=== PATIENT | male | born 1975 | race Caucasian/White ===

== ENCOUNTER 2025-03-24 14:25 | Outpatient (CLI) | payer OTHER, SELFPAY | END 2025-03-24 14:26 | disposition home or self-care (01) | PROVIDERS: PCP Internal Medicine; Visit Provider Orthopaedic Surgery | DX: M75.121 Complete rotator cuff tear or rupture of right shoulder, not specified as traumatic (principal); Z01.818 Encounter for other preprocedural examination | CPT/HCPCS: 87081 ==

== ENCOUNTER 2025-04-10 01:16 | Day surgery (SDC) | payer OTHER, SELFPAY ==
--- OUTSIDE RECORDS SUMMARY | 2019-03-14 10:15 | XMS_ITS | Continuity of Care Document ---
Author Organization [facility] Address [address] [place] [address] [address] [place] [address] Phone Care Team Providers Care Student Services Representative Name Role Phone Skye CASTRO/Halina Carranza CHT Unavailable Sandra vailable Procedures Procedure Date Orthotic Mgmt and Training Tip Protector Finger Advance Directives Directive Yes / No Effective Date File Name No Information Encounters Encounter Description Practice Location Reason(s) For Visit Diagnoses Date Provider Providers Copied on Encounter [facility], [address] [place] [address] [address], [place], [place], [id number], tel:[phone] [place] No Information Skye Meade. [address] [facility], [address], [place], [address], [place]. tel:[phone] Referring Provider: Mitch Rosa [address] , [place], [address]. tel:[phone] Family History Family Member Type Diagnosis Age At Onset No Information Payers Payer name Insurance type Covered green party ID Authoriza tion(s) Medicare [place] MB [id number] Medicaid OON Write Off CI 00 Social History Type Description Quantity Date Captured Comments Sex Male Smoking Status No Information Chief Complaint And Reason For Visit No Information Reason For Referral Reason For Referral No Information History Of Present Illness Encounter Date Complaint History Of Prese nt Illness No Information Functional Status Date Functional Assessmen t No Information Instructions Date Instruction Additional Infor mation No Information Assessments Type Assessment Date No Information Patient Care Teams Name Effective Dates (start - stop) Status Members No Information
--- NOTE | 2025-03-24 09:46 | SUR.PREOP ---
Addendum entered by Lis Jo RN 04/08/25 09:35: 0933-Called pt due to change in schedule for his surgery now being 04/10/25 at 0730 arriving at 0600. Pt denied any changes with his medication, medical history or s/s of illness at this time. Pt is aware of the medication he can take and re-educated on NPO after midnight, may have 20oz of clear fluids 3hrs prior as previously instructed. Pt is comfortable with the plan and denied having any further concerns at this time.-raisa Original Note: [facility] has started construction of its new state of the art ER which will open Spring 2026. With this, we anticipate parking may be a challenge for some our surgical patients and families. Parking spaces are limited but are available for all Surgical, obstetrics, and ER patients sharing this lot. If you arrive and find you are having a hard time finding a parking space, please note that we understand the challenges, please drive around the hospital and park near Hospital Entrance 1. When you enter this entrance, you can ask a volunteer to direct or take you back to the surgical waiting area to check in. We appreciate everyone?s understanding of these expected challenges while we build for your future. Report to the Outpatient Waiting Room, entrance under the green pavilion located off [facility], at time _0930__ on date _04/03/25__. Planned Procedure Time: __1130___.? Time changes happen often and if your time is changed the preop area will call you the afternoon before. - You and your visitor will be asked to self-screen and do not enter if you have any COVID symptoms. Please call surgeon if you need to reschedule. - A mask is optional within the hospital at this time. Patients may have clear liquids (water, carbonated beverages, clear teas, apple juice) until 3 hours prior to surgery with a maximum of 20 ounces. - No food from midnight until time of surgery and no smoking, or chewing tobacco (or any form of nicotine). No chewing gum, candy or mints. Take only the following medications with a SIP of water on the morning of surgery: _amlodipine, buspirone, duloxetine, (sumatriptan if needed).__ DO NOT STOP ANY OF YOUR OTHER PRESCRIPTION MEDICATIONS PRIOR TO SURGERY EXCEPT THE FOLLOWING Hold all vitamins and supplements for 3 days per anesthesiologist. Medications to discontinue per physician ____n/a____ Date to take last dose__n/a____ Please no make-up, nail japanese, hairspray, perfume, deodorant, or body powder the day of surgery.? No jewelry (including any body piercings) or valuables the day of surgery, leave them at home.? Please take a shower or bath the night before, or the morning of, surgery with an antibacterial soap.? Wear comfortable, loose fitting clothing. - Jewelry must be removed prior to entering the operating room.? Rings and piercings that are not removed may be cut off. - The hospital will not accept responsibility for valuables.? - Please leave all valuables, including medications, at home the day of surgery. If you are going home after surgery, a licensed independent driver must drive you home.? - NO public transportation without another adult if you receive anesthesia. - We recommend that an adult stay with you for 24 hours following discharge. - We also recommend that you do not drive, make important decision, drink alcoholic beverages, or take any drugs that were not prescribed by your health care provider for at least 24 hours after your discharge time. Follow any additional instructions given to you from your surgeon. Telephone instructions given to ___John____and asked if any additional questions and then verbalized understanding. Patient advised to call surgeon office or pre surgery nurse liaison [phone] if any additional questions.
[2025-03-24 10:11] VITALS: BMI 33.2
--- NOTE | 2025-04-01 12:36 | PM.IMHP ---
H&P: HPI History of Present Illness Date/Time: 04/01/25 12:36 Chief Complaint: Rotator cuff tear right shoulder Narrative: 49-year-old male who presents today for arthroscopy of his right shoulder with mini open rotator cuff repair possible biceps tenodesis proceed as indicated. Patient has been having symptoms in his shoulder for approximately 17 years. He is undergone subacromial decompression arthroscopically as well as distal clavicle excision. The surgeries were back in 2008. He has had continued symptoms since then. He states he had her MRI scan in 2010 2011 which showed a rotator cuff tear. He did not do anything surgically about that. He has not been able to repeat the MRI until recently. He has a bladder stimulator that was not MRI compatible. At this point he has a new stimulator which was MRI compatible. He had MRI scan done in November of this year which showed full-thickness tear of the entire with of the supraspinatus tendon with retraction. There is also involvement of the upper portion the infraspinatus. There is no fatty infiltration of muscles. At this point patient is been dealing with symptoms for her over 12 years shoulder and feels this point is ready proceed with repair the rotator cuff tendon. Review of Systems Review of Systems: All systems reviewed & are unremarkable except as noted in HPI and below PMFSH Past Medical History Medical History (Updated 12/07/24 @ 19:30 by Romeo Simpson MD) Sacral nerve stimulator present Crohn disease Torn rotator cuff Surgical History Surgical History (Updated 12/04/24 @ 15:17 by Jodie Dutta CMA) History of gastric bypass History of shoulder surgery History of carpal tunnel release both shoulders Social History Social History (Updated 12/04/24 @ 13:55 by Jodie Dutta CMA) Smoking status: Never smoker Alcohol intake: current Drinks per week: 2 Substance use: current Substance use type: marijuana Other substance usage details: 15-20 pinch hits every day. Do You Feel Safe in your Home?: Yes Lack of Transportation: YES Lack of Food: Never True Current Housing: I Have Housing Concerned About Future Housing: No Difficulty Paying Gas/Electric Bills: No Difficulty Paying for Meds: No Currently Unemployed: YES Education: Trade/Vocational Certificate Difficulty w/ Childcare or Family Care: No Living arrangements: alone Spiritual care concerns: No Meds Home Medications and Allergies Home Medications ?Medication ?Instructions ?Recorded ?Confirmed ?Type allopurinol 100 mg tablet 100 mg PO DAILY 09/30/24 03/24/25 History amlodipine 10 mg tablet 10 mg PO DAILY 09/30/24 03/24/25 History buspirone 15 mg tablet 30 mg PO BID 09/30/24 03/24/25 History calcium carbonate (Calcium 600) 600 mg PO DAILY 09/30/24 03/24/25 History colestipol 1 gram tablet 1 g PO ONCE 09/30/24 03/24/25 History duloxetine 60 mg capsule,delayed 60 mg PO DAILY 09/30/24 03/24/25 History release testosterone cypionate 200 mg/mL 100 mg IM WEEKLY 09/30/24 03/24/25 History intramuscular oil (Depo-Testosterone) trazodone 100 mg tablet 100 mg PO QHS 09/30/24 03/24/25 History atogepant 60 mg tablet (Qulipta) 60 mg PO HS 03/24/25 03/24/25 History famotidine 40 mg tablet mg 03/24/25 History rabeprazole 20 mg tablet,delayed 20 mg PO DAILY 03/24/25 03/24/25 History release sumatriptan succinate 100 mg tablet 100 mg PO PRN 03/24/25 03/24/25 History Allergies Allergy/AdvReac Type Severity Reaction Status Date / Time nabumetone Allergy Unknown Unknown Verified 03/24/25 09:48 Sulfa (Sulfonamide Allergy Unknown Unknown Verified 03/24/25 09:48 Antibiotics) Exam Narrative: 49-year-old male alert pleasant. BMI is 33.2. His right shoulder is elevation 180 external rotation 80 internal rotation to T12. He has mild weakness with external rotation. Mild weakness with thumbs-down abduction strength testing. He does have moderate pain with strength testing in the anterior shoulder. Subscap lift-off is intact. Speed's maneuver caused him moderate anterior shoulder pain. Severe tenderness over the bicipital groove as well as the anterior supraspinatus tendon insertion. Moderate pain primary impingement testing. Neck range of motion is full without discomfort. No numbness tingling in the arm. 2+ radial pulse. Resp: Auscultation: clear to auscultation bilaterally Cardio: Rate: regular rate Rhythm: regular rhythm Assessment and Plan Assessment and plan (1) Complete rotator cuff tear or rupture of right shoulder, not specified as traumatic: Qualifiers: Rotator cuff tear trauma status: nontraumatic Qualified Code(s): M75.121 - Complete rotator cuff tear or rupture of right shoulder, not specified as traumatic Code(s): M75.121 - Complete rotator cuff tear or rupture of right shoulder, not specified as traumatic Status: Acute Plan 49-year-old male who has a full-thickness rotator cuff tear right shoulder. Also the long head of the biceps tendon appears to be perched on the lesser tuberosity. Patient has been having symptoms and pain at for over 10 years. At this point he feels he is ready proceed with surgery. Surgical procedures well as risks and complications were discussed in detail all questions were answered and we will proceed. He will stop his testosterone 4 weeks prior to surgery. He will also avoid any anti-inflammatories or aspirin products 1 week prior to surgery. He will see his primary care for pre-surgical clearance. Patient's nasal swab was negative.
--- OUTSIDE RECORDS SUMMARY | 2025-04-03 02:12 | XMS_ITS | Clinical Summary ---
Author Organization [facility] Address [address] [address] Phone Care Team Providers Care Cracker And Cookie Machine Operator Name Role Phone Quinton Valdemar Rao APRN Unavailable [phone] Doug Sanford Unavailable Rose Mckeon MD Unavailable [phone] Dilia Hansen MD Unavailable [phone] Marjorie Clark MD Unavailable Kavon Renee DPM Unavailable Unavailable Fer Chauhan MD Unavailable [phone] Blaise Peterson MD Unavailable [phone] Clayton Iyer PAC Unavailable [phone] Juliana Smith Unavailable [phone] Areli Alarcon MD Primary Care Provider Allergies Active Allergy Reactions Criticality Noted Date Comments Ibuprofen Nausea Low 09/15/2023 Nabumetone Hallucinations,Other (see Comments) Low 08/16/2018 Seeing Red dots Sulfa Antibiotics Other (see Comments) sweating Medications DULoxetine (CYMBALTA) [address] Particles Take 1 Capsule by mouth daily. 90 Capsule 07/11/19 23 Active busPIRone (BUSPAR) 10 MG Tablet TAKE 1 TABLET 3 TIMES A DAY BY ORAL ROUTE. 01/27/20 23 Active gabapentin (NEURONTIN) 300 MG CapsuleIndication s:Chronic pain syndrome Take 1 Capsule by mouth 3 times daily. 270 Capsule 06/08/19 24 Active SYRINGE-NEEDLE, DISP, 3 ML (B-D 3CC LUER-KRISTEN SYR 22GX1) 22G X 1 3 ML MiscIndications:S econdary male hypogonadism 1 Needle by Intramuscular route every 7 days. 50 Each 07/14/19 24 Active colestipol (COLESTID) 1 GM TabletIndications :Chronic diarrhea TAKE 1 TABLET BY MOUTH TWICE A DAY 180 Tablet 1 07/20/19 24 Active Additional Information Patient taking differently: 1 g Oral DAILY, Reported on 02/25/2025 mesalamine (LIALDA) 1.2 GM Tablet Delayed ResponseIndicatio ns:Crohn's disease of large intestine without complications TAKE 2 TABLETS BY MOUTH EVERY DAY 180 Tablet 2 08/09/19 24 Active fluconazole (DIFLUCAN) 150 MG Tablet TAKE 2 TABLETS BY MOUTH IMMEDIATELY, THEN ONCE A WEEK 11/16/19 24 Active famotidine (PEPCID) 40 MG Tablet Take 40 mg by mouth 2 times daily. 12/24/19 24 Active zolpidem (AMBIEN) 10 MG Tablet Take 10 mg by mouth nightly. 12/11/19 24 Active meloxicam (MOBIC) 15 MG Tablet Take 1 Tablet by mouth daily. 90 Tablet 3 01/15/20 24 Active traMADol (ULTRAM) 50 MG TabletIndications :Acute pain of right wrist Take 1 Tablet by mouth every 12 hours as needed for Severe pain. 20 Tablet 02/02/20 24 Active allopurinol (ZYLOPRIM) 100 MG Tablet TAKE 1 TABLET BY MOUTH EVERY DAY 90 Tablet 3 08/20/19 25 Active traZODone (DESYREL) 100 MG Tablet Take 100 mg by mouth nightly. Active propranolol (INDERAL LA) 120 MG CAPSULE SR 24 HRIndications:Hyp ertension, essential TAKE 2 CAPSULES BY MOUTH EVERY DAY 180 Capsule 11/26/19 25 Active amLODIPine (NORVASC) 10 MG Tablet Take 10 mg by mouth daily. Active rosuvastatin (CRESTOR) 40 MG Tablet Take 40 mg by mouth daily. Active testosterone cypionate (DEPO-TESTOSTERON E) 200 MG/ML SolutionIndicatio ns:Male hypogonadism 0.5 ML BY INTRAMUSCULAR ROUTE ONCE A WEEK. 6 mL 1 02/26/20 25 Active ARIPiprazole (ABILIFY) 2 MG Tablet take 1 tablet by mouth every day at bedtime for 30 days 02/18/20 25 Active RABEprazole (ACIPHEX) 20 MG Tablet Delayed Response Oral 01/13/20 22 Active ondansetron (ZOFRAN-ODT) 4 MG TABLET DISPERSIBLEIndica tions:Intractable chronic migraine with aura with status migrainosus Take 1 Tablet by mouth every 6 hours as needed for Nausea - 1st line. 30 Tablet 2 02/26/20 25 Active SUMAtriptan (IMITREX) 100 MG TabletIndications :Intractable chronic migraine with aura with status migrainosus Take 1 Tablet by mouth daily as needed for Migraine. Use as directed. May repeat dose in 2 hours if headache recurs. 9 Tablet 3 02/26/20 25 Active atogepant (Qulipta) 60 MG TabletIndications :Migraine Take 1 Tablet by mouth nightly. Indications: Migraine Headache 30 Tablet 2 02/26/20 25 Active Active Problems Problem Noted Date Diagnosed Date Irritable bowel syndrome 09/28/2023 ETOH abuse 09/07/2023 Seasonal allergies 09/07/2023 YELITZA on CPAP 09/07/2023 Overview (09/07/2023): NO LONGER NEEDED PER DOCTOR SINCE 2020 Arthritis 09/07/2023 Mixed hyperlipidemia 09/07/2023 Acute intractable headache 02/28/2023 Numbness of left hand 11/30/2022 Anxiety and depression 08/27/2021 RLS (restless legs syndrome) 08/27/2021 Other male erectile dysfunction 11/27/2020 Pituitary adenoma 05/31/2019 Crohn's disease 10/23/2018 Secondary male hypogonadism 10/01/2018 Fibromyalgia 06/05/2018 Neurogenic bladder 11/02/2016 Gout 03/02/2016 Gastroesophageal reflux disease without esophagi tis 09/11/2015 Insomnia 09/11/2015 Cyst of neck 06/18/2015 Chronic pain syndrome 06/18/2015 Hypertension, essential 06/18/2015 Resolved Problems Problem Noted Date Diagnosed Date Resolved Date Gastritis 09/07/2023 09/08/2023 Alcohol-induced acute pancreatitis 09/07/2023 09/08/2023 Pancreatitis 09/06/2023 09/07/2023 Chronic hepatitis C without hepatic coma 12/03/2021 08/04/2022 Chronic pain 10/02/2018 09/15/2023 History of foot surgery 10/02/2018/09/2023 Hyperglycemia 10/02/2018 06/08/2023 Chronic narcotic use 08/03/2018 022 Right Achilles tendinitis 04/27/2018 Right Achilles tendinitis 04/27/2018 Fatigue 01/03/2018 08/27/2021 Chronic joint pain 10/03/2017 Low testosterone 12/01/2015 06/07/2022 Epidermoid cyst 07/23/2015 08/27/2021 Neoplasm of skin 07/23/2015 06/08/2023 Primary gout 06/18/2015 08/27/2021 Pituitary neoplasm 10/15/2013 3 Overview (08/27/2021): Pituitary tumor Encounters Date Type Department Care Team Description 03/31/2025 Results Follow-Up [facility] [address] [place] [address] Marjorie Clark MD CMP (COMPREHENSIVE METABOLIC PANEL), PSA SCREEN, LIPID PANEL, Additional followed-up results: 2 03/24/2025 Results Follow-Up [facility] - [facility]rology [facility] [place] [address] [facility] [place] [address] Graciela Todd APRN, DIE CUT OPERATOR VITAMIN B12 03/24/2025 Travel 02/26/2025 Telephone [facility] Neurology [facility] [place] [address] [facility] [place] [address] Graciela Todd APRN, DIE CUT OPERATOR 02/25/2025 3:00 PM CDT Office Visit [facility]rology - [place] [address] [facility] [place] [phone] Graciela Todd, RN NURSERY, DIE CUT OPERATOR Intractable chronic migraine with aura with status migrainosus (Primary Dx) Discharge Disposition: Discharged to home or Selfcare 02/25/2025 Travel 02/25/2025 Refill [facility] - Endocrinology - [address] [place] [phone] Marjorie Clark MD Medication Refill 02/21/2025 [facility] [place] [address] [place] [phone] Hernandez Altman MD Medication Refill from Last 3 Months Immunizations Immunization Administration Dates Next Due COVID-19, MRNA, LNP-S, BIVAL ENT , PFIZER, 30 MCG/0.3 ML (12+ Y/O) 06/07/2022 Influenza Vaccine 06/05/2014 Influenza Vaccine greater than 3 yrs 06/05/2012 Influenza Vaccine, Quadrivalent, PF 03/05,03/22/2022,04/12/2018,03/20 Influenza, Injectable, Quadrivalent 05/05/2018 Influenza, Seasonal, Injecta ble, Undefined 03/05/2014,06/05/2012 Pneumococcal Vaccine Adult - 23 Valent 6 Pneumococcal conjugate PCV20 , polysaccharide [id number] conjugate, adjuvant, PF 06/07/2022 TD VACCINE 06/05/2004 TDAP Vaccine 03/06/2019,07/26/2018,08/03/2015 Family History Medical History Relation Name Comments No Known Problems Father Heart Disease Maternal Grandfather Heart Disease Maternal Grandmother Hypertension Mother Cancer Paternal Grandfather Throat Heart Disease Paternal Grandfather Skin Cancer Paternal Grandfather Heart Disease Paternal Grandmother Relation Name Status Comments Father Maternal Grandfather Maternal Grandmother Mother Alive Paternal Grandfather Paternal Grandmother Social History Tobacco Use Types Packs/Day Years Used Date Smoking Tobacco: Never Smokeless Tobacco: Never Tobacco Cessation:Counseling Given: No Alcohol Use Standard Drinks/Week Comments Yes 3 (1 standard drink = 0.6 oz pur e alcohol) [facility] Utilities Answer Date Recorded In the past 12 months has Parking[employer], gas, oil, or water [employer] threatened to shut off services in your home? Patient declined 09/06/2023 Social Connection and Isolation Panel Answer Date Recorded In a typical week, how many times do you talk on the phone with family, friends, or neighbors? Patient declined 09/06/2023 How often do you get togethe r with friends or relatives? Patient declined 09/06/2023 How often do you attend holiness or mormonism serv ices? Patient declined 09/06/2023 Do you belong to any clubs o r organizations such as holiness groups, unions, fraternal or athletic groups, or school groups? Patient declined 09/06/2023 How often do you attend meet ings of the clubs or organizations you belong to? Patient declined 09/06/2023 Are you , , di vorced, , never , or living with a partner? Patient declined 09/06/2023 AUDIT-C Answer Date Recorded Q1: How often do you have a drink containing alc ohol? Patient declined 09/06/2023 Q2: How many drinks containi ng alcohol do you have on a typical day when you are drinking? Patient declined 09/06/2023 Q3: How often do you have si x or more drinks on one occasion? Patient declined 09/06/2023 Overall Financial Resource Strain (CARDIA) Answe r Date Recorded How hard is it for you to pa y for the very basics like food, housing, medical care, and heating? Patient declined 09/06/2023 PHQ-2 Answer Date Recorded Total Score - Questions 1-9 0 /0 09/2023 [facility]ational Stress Questionnaire Answer Date Recorded Do you feel stress - tense, restless, nervous, or anxious, or unable to sleep at night because your mind is troubled all the time - these days? Patient declined 09/06/2023 Exercise Vital Sign Answer Date Recorde d On average, how many days pe r week do you engage in moderate to strenuous exercise (like a brisk walk)? Patient declined On average, how many minutes do you engage in exercise at this level? Patient declined 09/06/2023 Hunger Vital Sign Answer Date Recorded Within the past 12 months, y ou worried that your food would run out before you got the money to buy more. Patient declined Within the past 12 months, t he food you bought just didn't last and you didn't have money to get more. Patient declined 08/2023 PRAPARE - Transportation Answer Date Re corded In the past 12 months, has l ack of transportation kept you from medical appointments or from getting medications? Patient declined 09/06/2023 In the past 12 months, has l ack of transportation kept you from meetings, work, or from getting things needed for daily living? Patient declined 09/06/2023 Housing Stability Vital Sign Answer Colton e Recorded In the last 12 months, was t here a time when you were not able to pay the mortgage or rent on time? Patient declined 09/06/19 24 In the last 12 months, how many places have you lived? 1 09/06/2023 In the last 12 months, was t here a time when you did not have a steady place to sleep or slept in a long term (including now)? Patient declined 09/06/2023 Sexually Active Control Partners Comments Yes Sex and Gender Information Value Date Recorded Sex Assigned at Not on file Legal Sex Male 2:12 AM CDT Gender Identity Not on file Sexual Orientation Not on file Last Filed Vital Signs Vital Sign Reading Time Taken Comments Blood Pressure 112/84 02/25/2025 3:00 PM CDT Pulse 87 02/25/2025 3:00 PM CDT Temperature 36.7 C (98 F) 02/25/2025 3:00 PM CDT Respiratory Rate 16 02/25/2025 3:00 PM CDT Oxygen Saturation 97% 02/25/2025 3:00 PM CDT Inhaled Oxygen Concentration - - Weight 108 kg (238 lb 1.6 oz) 02/25/2025 3:00 PM CDT Height 182.9 cm (6') 02/25/2025 3:00 PM CDT Body Mass Index 32.29 02/25/2025 3:00 PM CDT Plan of Treatment Upcoming Encounters Date Type Department Care Team (Late st Contact Info) Description 05/22/2025 8:45 AM SCRUB TECH Office Visit [facility] - Endocrinology - [address] [place] [address] Marjorie Clark MD [address] [address] 06/10/2025 8:30 AM SCRUB TECH Office Visit [facility] - Neurology - [address] [place] [address] Graciela Todd, RN NURSERY, DIE CUT OPERATOR [address] [place] [address] Health Maintenance Due Date Last Done Comments Hepatitis B Immunization (1 of 3 - 19+ 3-dose series) 1993 Medicare Initial AWV [id number] 04/05/2001 Cologuard 11/09/2019 Immunochemical Fecal Occult Blood 11/09/2019 Respiratory Syncytial Virus (RSV) Immunization (Adult) (1 - Risk 50-74 years 1-dose series) 2024 Zoster Immunization (1 of 2) 2024 Influenza Immunization (#1) 02/03/202505/05, 03/21/2023, 03/22/2022, Additional history exists SARS-COV-2 Immunization (2024- season) 2025 06/07/2022, 03/27/2021, 02/13/2021 Td Immunization Every 10 Years (Adults With 1 Tdap) 03/06/2029 03/06/2019, 07/26/2018, 08/03/2015, Additional history exists Colonoscopy 07/08/2029 07/08/2024, 020 08/2024, 10/19/2022, Additional history exists Colorectal Cancer Screening 07/08/2029 Hepatitis C Virus (HCV) Screening Completed 10/23/2018, 10/23/2018 Pneumococcal Immunization (50+ years) Completed 06/07/2022, 06/05/2005 Pneumococcal Immunization Combined Discontinued 06/07/2022, 06/05/2005 Human Papillomavirus (HPV) Immunization Aged Out No longer eligible based on patient's age to complete this topic Meningococcal Immunization (ACWY) Aged Out No longer eligible based on patient's age to complete this topic Rotavirus Immunization Aged Out No lo nger eligible based on patient's age to complete this topic Medical Devices Implanted Type Area Medical Or Surgical Instrument Maker Device Identifier Shelf Expiration Date Model / Serial / Lot Lead Neurostimulation Interstim Ssmri 4.32mm Eman Us Full Body - [id number] Implanted:Qty: 1 on 06/09/2023 by Blaise Peterson MD at [facility] IMPLANT Right: Back Medtronic Neuromodulation 01/09/2025 [id number] / [id number] / [id number] Description:Medtronic Inters elizabeth Surescan MRI lead kit Kit d'electrode SureScan MRI Sacral neuromodulation 28cm length Neurostimulator Sacral Interstim X Non Rechargeable Surescan Mri - [id number] Implanted:Qty: 1 on 06/16/2023 by Blaise Peterson MD at [facility] IMPLANT Medtronic Neuromodulation 09/16/2024 [id number] / [id number] / [id number] 3H [place] Suture Parker Implanted:Qty: 2 on 04/27/2018 by Zi Mahan DPM at [facility] Right: Leg [employer] 03/01/2023 [id number] / [id number] / [id number] Explanted Type Area Medical Or Surgical Instrument Maker Device Identifier Shelf Expiration Date Model / Serial / Lot Bladder Stimulator-2012 Implanted:2012 (Quantity not on file) Explanted:Qty: 1 on 01/13/2023 by Blaise Peterson MD at [facility] Sacrum MEDTRONIC [id number] / / Description:EXPLANTS ALL OUT AND INTACT AND VERIFIED WITH XRAY Procedures Procedure Name Priority Date/Time Associated Diagnosis Comments CBC WITH AUTO DIFFERENTIAL Routine 03/24/2025 11:05 AM CDT Male hypogonadism Class 1 obesity due to excess calories with serious comorbidity and body mass index (BMI) of 32.0 to 32.9 in adult BILIRUBIN DIRECT (CONJUGATED) Routine 03/24/2025 11:05 AM CDT Elevated liver enzymes IMMUNOGLOBULIN A (IGA) - CELIAC Routine 03/24/2025 11:05 AM CDT Elevated liver enzymes GLIADIN IGA ANTIBODY - CELIAC Routine 03/24/2025 11:05 AM CDT Elevated liver enzymes TISSUE TRANSGLUTAMINASE IGA - CELIAC Routine 03/24/2025 11:05 AM CDT Elevated liver enzymes TESTOSTERONE Routine 03/24/2025 11:05 AM CDT Male hypogonadism Class 1 obesity due to excess calories with serious comorbidity and body mass index (BMI) of 32.0 to 32.9 in adult VITAMIN B12 Routine 03/24/2025 11:05 AM CDT Intractable chronic migraine with aura with status migrainosus HEPATITIS B CORE TOTAL ANTIBODY Routine 03/24/2025 11:05 AM CDT Elevated liver enzymes MARC SCREEN MULTIPLEX W/REFLEX JADE Routine 03/24/2025 11:05 AM CDT Elevated liver enzymes HEPATITIS A ANTIBODY IGM Routine 025 11:05 AM CDT Elevated liver enzymes CERULOPLASMIN Routine 03/24/2025 11:05 AM CDT Elevated liver enzymes ACTIN (F-ACTIN) ANTIBODY (SMOOTH MUSCLE AB), IGG, SERUM Routine 03/24/2025 11:05 AM CDT Elevated liver enzymes CELIAC ANTIBODY PANEL Routine 03/24/2025 11:05 AM CDT Elevated liver enzymes LIPID PANEL Routine 03/24/2025 11:05 AM CDT Male hypogonadism Class 1 obesity due to excess calories with serious comorbidity and body mass index (BMI) of 32.0 to 32.9 in adult PSA SCREEN Routine 03/24/2025 11:05 AM CDT Male hypogonadism Class 1 obesity due to excess calories with serious comorbidity and body mass index (BMI) of 32.0 to 32.9 in adult Screening for malignant neoplasm of prostate CMP (COMPREHENSIVE METABOLIC PANEL) Routine 03/24/2025 11:05 AM CDT Male hypogonadism Class 1 obesity due to excess calories with serious comorbidity and body mass index (BMI) of 32.0 to 32.9 in adult TESTOSTERONE Routine 03/24/2025 11:05 AM CDT Male hypogonadism Class 1 obesity due to excess calories with serious comorbidity and body mass index (BMI) of 32.0 to 32.9 in adult COMPLETE BLOOD COUNT (CBC) WITH DIFF Routine 03/24/2025 11:05 AM CDT Male hypogonadism Class 1 obesity due to excess calories with serious comorbidity and body mass index (BMI) of 32.0 to 32.9 in adult HM COLONOSCOPY 07/08/2024 12:00 AM SCRUB TECH HEPATITIS C RNA QUANT PCR VIRAL LOAD Routine 10/23/2018 3:44 PM CDT Chronic hepatitis C without hepatic coma (HCC) from Last 3 Months or Most Recently Relevant to Health Maintenance Results * ACTIN (F-ACTIN) ANTIBODY (SMOOTH MUSCLE AB), IGG, SERUM (03/24/2025 11:05 AM CDT) F-ACTIN 8.1 <20.0 03/26/2025 11:47 AM CDT [facility] Comment: <20.0 Negative 20.0-30.0 Weak Positive >30.0 Moderate to Strong Positive Blood Venipuncture / Unknown 03/24/2025 11:05 AM CDT 03/24/2025 12:07 PM CDT Narrative [facility] - 03/26/2025 11:47 AM CDT Performed by enzyme-linked immunosorbent assay (SARAH). us Not On File Provider IMMUNOLOGY ORDERABLES Final Result [facility] [address] [place] [address], * (ABNORMAL) TESTOSTERONE (03/24/2025 11:05 AM CDT) TESTOSTERONE, TOTAL 74(L) 221 - 716 ng/dL 03/25/2025 12:15 AM CDT [facility] Blood Venipuncture / Unknown 03/24/2025 11:05 AM CDT 03/24/2025 12:06 PM CDT us Marjorie Clark MD CHEMISTRY ORDERABLES Final Resul t Performing Organization Address City/[facility]/ZIP Co de Phone Number [facility] [address] [place] [address], [place] * HEPATITIS B CORE TOTAL ANTIBODY (03/24/2025 11:05 AM CDT) HEP B CORE TOTAL (IGM, IGG) BKR NON DETECTED NON DETECTED 03/25/2025 12:03 AM CDT [facility] Blood Venipuncture / Unknown 03/24/2025 11:05 AM CDT 03/24/2025 12:08 PM CDT us Not On File Provider CHEMISTRY ORDERABLES Final Result [facility] [address] [place] [address], [place] * IMMUNOGLOBULIN A (IGA) - CELIAC (03/24/2025 11:05 AM CDT) IMMUNOGLOBULIN A 400 63 - 484 mg/dL 03/24/2025 10:06 PM CDT [facility] Blood Venipuncture / Unknown 03/24/2025 11:05 AM CDT 03/24/2025 12:07 PM CDT us Not On File Provider IMMUNOLOGY ORDERABLES Final Result [facility] [address] [place] [address], [place] * GLIADIN IGA ANTIBODY - CELIAC (03/24/2025 11:05 AM CDT) DEAMIDATED GLIADIN IGA 3.4 <15.0 U/mL 03/28/2025 1:43 PM CDT [facility] Blood Venipuncture / Unknown 03/24/2025 11:05 AM CDT 03/24/2025 12:07 PM CDT Narrative [facility] - 03/28/2025 1:43 PM CDT Antibody testing was performed by multiplex flow immunoassay on the BioPlex platform. us Not On File Provider IMMUNOLOGY ORDERABLES Final Result Performing Organization Address [facility] Co de Phone Number [facility] [address] [place] [address], [place] * TISSUE TRANSGLUTAMINASE IGA - CELIAC (03/24/2025 11:05 AM CDT) Pathologist [facility] TTG IGA <0.5 <15.0 U/mL 03/28/2025 1:43 PM CDT [facility] Blood Venipuncture / Unknown 03/24/2025 11:05 AM CDT 03/24/2025 12:07 PM CDT Narrative [facility] - 03/28/2025 1:43 PM CDT Antibody testing was performed by multiplex flow immunoassay on the BioPlex platform. us Not On File Provider IMMUNOLOGY ORDERABLES Final Result Performing Organization Address [facility]/[place] de Phone Number [facility] [address] [place] [address], [place] * (ABNORMAL) CBC WITH AUTO DIFFERENTIAL (03/24/2025 11:05 AM CDT) Pathologist [facility] WBC 8.55 4.00 - 12.00 10(3)/mcL 03/24/2025 12:22 PM CDT [facility] RBC 5.66 4.40 - 5.80 10(6)/mcL 03/24/2025 12:22 PM CDT [facility] HEMOGLOBIN (HGB) 17.5(H) 13.0 - 16.5 g/dL 03/24/2025 12:22 PM CDT [facility] HEMATOCRIT (HCT) 51.0(H) 38.0 - 50.0 % 03/24/2025 12:22 PM CDT [facility] MCV 90.1 82.0 - 96.0 fL 03/24/2025 12:22 PM CDT [facility] MCH 30.9 26.0 - 32.0 pg 03/24/2025 12:22 PM CDT [facility] MCHC 34.3 31.0 - 36.0 g/dL 03/24/2025 12:22 PM CDT [facility] PLATELET COUNT 262 140 - 440 10(3)/mcL 03/24/2025 12:22 PM CDT [facility] RDW 12.1 11.8 - 15.5 % 03/24/2025 12:22 PM CDT [facility] MPV 10.1 8.0 - 12.6 fL 03/24/2025 12:22 PM CDT [facility] NEUTROPHILS 71.8(H) 40.0 - 68.0 % 03/24/2025 12:22 PM CDT [facility] LYMPHOCYTES 21.3 19.0 - 49.0 % 03/24/2025 12:22 PM CDT [facility] MONOCYTES 5.5 3.0 - 13.0 % 03/24/2025 12:22 PM CDT [facility] EOSINOPHILS 0.4 0.0 - 8.0 % 03/24/2025 12:22 PM CDT [facility] BASOPHILS 0.5 0.0 - 1.0 % 03/24/2025 12:22 PM CDT [facility] IMMATURE GRANULOCYTE 0.5(H) 0.0 - 0.4 % 03/24/2025 12:22 PM CDT [facility] Comment:Immature Granulocyte s includes Metamyelocytes, Myelocytes, and Promyelocytes. ABSOLUTE NEUTROPHILS 6.15(H) 1.40 - 5.30 10(3)/mcL 03/24/2025 12:22 PM CDT [facility] ABSOLUTE LYMPHOCYTES 1.82 0.90 - 3.30 10(3)/mcL 03/24/2025 12:22 PM CDT [facility] ABSOLUTE MONOCYTES 0.47 0.10 - 0.90 10(3)/mcL 03/24/2025 12:22 PM CDT [facility] ABSOLUTE EOSINOPHIL 0.03 0.00 - 0.50 10(3)/mcL 03/24/2025 12:22 PM CDT [facility] ABSOLUTE BASOPHILS 0.04 0.00 - 0.10 10(3)/mcL 03/24/2025 12:22 PM CDT [facility] ABSOLUTE IMMATURE GRANULOCYTE 0.04(H) 0.00 - 0.03 10 (3) mcL. 03/24/2025 12:22 PM CDT [facility] NRBC PER 100 WBC 0 03/24/20 12:22 PM CDT [facility] Blood Venipuncture / Unknown 03/24/2025 11:05 AM CDT 03/24/2025 12:07 PM CDT us Marjorie Clark MD HEMATOLOGY ORDERABLES Final Resu lt [facility] [address] [place] [address] * VITAMIN B12 (03/24/2025 11:05 AM CDT) [facility] VITAMIN B12 379 213 - 816 pg/mL 03/24/2025 12:59 PM CDT [facility] Blood Venipuncture / Unknown 03/24/2025 11:05 AM CDT 03/24/2025 12:07 PM CDT us Graciela Todd RN NURSERY, DIE CUT OPERATOR CHEMISTRY ORDERABLES Final Result [facility] [address] [place] [address] * PSA SCREEN (03/24/2025 11:05 AM CDT) [facility] PSA SCREEN, TOTAL 1.02 <4.00 ng/mL 03/24/2025 12:59 PM CDT [facility] Blood Venipuncture / Unknown 03/24/2025 11:05 AM CDT 03/24/2025 12:07 PM CDT Narrative [facility] - 03/24/2025 12:59 PM CDT The ALINITY Total PSA assay is a Chemiluminescent Microparticle Immunoassay (CMIA) for the quantitative determination of total PSA (both free PSA and PSA complexed to [id number]) in human serum. Total PSA values obtained with different assay methods, including Rodriguez PSA assays, cannot be used interchangeably. us Marjorie Clark MD CHEMISTRY ORDERABLES Final Resul t [facility] [address] [place] [address] * LIPID PANEL (03/24/2025 11:05 AM CDT) CHOLESTEROL 138 <200 mg/dL 03/24/2025 12:35 PM CDT [facility] TRIGLYCERIDES 144 <150 mg/dL 03/24/2025 12:35 PM CDT [facility] HDL CHOLESTEROL 53 >40 mg/dL 12:35 PM CDT [facility] LDL 56 <130 mg/dL 03/24/2025 12:35 PM CDT [facility] VLDL 29 10 - 50 mg/dL 03/24/2025 12:35 PM CDT [facility] CHOL/HDL RATIO 2.6 0.0 - 4.4 03/24/2025 12:35 PM CDT [facility] NON-HDL CHOLESTEROL 85 <130 mg/dL 03/24/2025 12:35 PM CDT [facility] IS THE PATIENT REQUIRED TO BE FASTING? Yes 03/24/2025 12:35 PM CDT [facility] HAS THE PATIENT BEEN FASTING? Yes 03/24/2025 12:35 PM CDT [facility] Blood Venipuncture / Unknown 03/24/2025 11:05 AM CDT 03/24/2025 12:08 PM CDT Narrative [facility] - 03/24/2025 12:35 PM CDT NCEP GUIDELINES FOR LIPID INTERPRETATION TOTAL CHOLESTEROL DESIRABLE <200 BORDERLINE 200-239 HIGH >=240 LDL CHOLESTEROL OPTIMAL <100 NEAR OPTIMAL 100-129 BORDERLINE 130-159 HIGH 160-189 VERY HIGH >=190 Calculated using the Friedewald equation. HDL CHOLESTEROL LOW <40 *HIGH >=60 TRIGLYCERIDES NORMAL <150 BORDERLINE 150-199 HIGH 200-499 VERY HIGH >=500 VLDL calculated using Triglycerides/5. *HDL CHOLESTEROL >=60 mg/dL counts as a negative risk factor; its presence removes one risk factor from the total. Based on guidelines from the National Cholesterol Education Program, desirable levels for non HDL cholesterol are 30 mg/dL above target levels for LDL cholesterol. us Marjorie Clark MD CHEMISTRY ORDERABLES Final Resul t [facility] [address] [place] [address] * HEPATITIS A ANTIBODY IGM (03/24/2025 11:05 AM CDT) [facility] HEPATITIS A IGM ANTIBODY NON DETECTED NON DETECTED 03/25/2025 12:03 AM CDT [facility] Comment: IGM Antibodies to HAV not detected. Does not exclude early acute or recovered HAV infection. Blood Venipuncture / Unknown 03/24/2025 11:05 AM CDT 03/24/2025 12:08 PM CDT us Not On File Provider CHEMISTRY ORDERABLES Final Result [facility] [address] [place] [address], * (ABNORMAL) CMP (COMPREHENSIVE METABOLIC PANEL) (03/24/2025 11:05 AM CDT) [facility] SODIUM 139 136 - 145 mmol/L 03/24/2025 12:35 PM CDT [facility] POTASSIUM 4.0 3.5 - 5.1 mmol/L 03/24/2025 12:35 PM CDT [facility] CHLORIDE 104 98 - 107 mmol/L 03/24/2025 12:35 PM CDT [facility] CO2, VENOUS 26 22 - 30 mmol/L 03/24/2025 12:35 PM CDT [facility] ANION GAP 13.0 <18.0 mmol/L 03/24/2025 12:35 PM CDT [facility] GLUCOSE 114(H) 70 - 99 mg/dL 03/24/2025 12:35 PM CDT [facility] BUN 15 8 - 26 mg/dL 03/24/2025 12:35 PM CDT [facility] CREATININE, BLOOD 0.98 0.70 - 1.30 mg/dL 03/24/2025 12:35 PM CDT [facility] BUN/CREATININE RATIO 15 12 - 20 ratio 03/24/2025 12:35 PM CDT [facility] TOTAL PROTEIN 7.4 6.0 - 8.0 g/dL 03/24/2025 12:35 PM CDT [facility] ALBUMIN 4.6 3.5 - 5.0 g/dL 03/24/2025 12:35 PM CDT [facility] A/G RATIO 1.6 1.0 - 2.2 03/24/2025 12:35 PM CDT [facility] CALCIUM 9.7 8.7 - 10.5 mg/dL 03/24/2025 12:35 PM CDT [facility] T BILI 0.6 0.2 - 1.2 mg/dL 03/24/2025 12:35 PM CDT [facility] SGOT (AST) 25 <43 U/L 03/24/2025 12:35 PM CDT [facility] SGPT (ALT) 35 <56 U/L 03/24/2025 12:35 PM CDT [facility] ALKALINE PHOSPHATASE 68 40 - 150 U/L 03/24/2025 12:35 PM CDT [facility] IS THE PATIENT REQUIRED TO BE FASTING? No 03/24/2025 12:35 PM CDT [facility] GFR, ESTIMATED >60 >=60 03/24/2025 12:35 PM CDT [facility] Comment: Creatinine Clearance is the preferred criteria for selecting drug dose adjustments in renally impaired patients. The GFR is provided as additional pertinent clinical information. GFR is reported in mL/min/1.73 sq m. Calculation based on the 2020 Chronic Kidney Disease Epidemiology Collaboration (CKD-EPI) equation refit without adjustment for race. GFR, EST. >60 >=60 12:35 PM CDT [facility] Comment: Creatinine Clearance is the preferred criteria for selecting drug dose adjustments in renally impaired patients. The GFR is provided as additional pertinent clinical information. GFR is reported in mL/min/1.73 sq m. Calculation based on the 2009 Chronic Kidney Disease Epidemiology Collaboration (CKD-EPI). GFR, EST. NONAFRICAN >60 >=60 03/24/2025 12:35 PM CDT [facility] Comment: Creatinine Clearance is the preferred criteria for selecting drug dose adjustments in renally impaired patients. The GFR is provided as additional pertinent clinical information. GFR is reported in mL/min/1.73 sq m. Calculation based on the 2009 Chronic Kidney Disease Epidemiology Collaboration (CKD-EPI). Blood Venipuncture / Unknown 03/24/2025 11:05 AM CDT 03/24/2025 12:08 PM CDT us Marjorie Clark MD CHEMISTRY ORDERABLES Final Resul t [facility] [address] [place] [address] * CERULOPLASMIN (03/24/2025 11:05 AM CDT) CERULOPLASMIN 22 20 - 60 mg/dL 03/24/2025 11:32 PM CDT [facility] Blood Venipuncture / Unknown 03/24/2025 11:05 AM CDT 03/24/2025 12:07 PM CDT us Not On File Provider CHEMISTRY ORDERABLES Final Result [facility] [address] [place] [address], [place] * BILIRUBIN DIRECT (CONJUGATED) (03/24/2025 11:05 AM CDT) Pathologist [facility] BILIRUBIN,DIREC T 0.2 0.0 - 0.5 mg/dL 03/24/2025 12:35 PM CDT [facility] Blood Venipuncture / Unknown 03/24/2025 11:05 AM CDT 03/24/2025 12:08 PM CDT us Not On File Provider CHEMISTRY ORDERABLES Final Result Performing Organization Address [facility] Co de Phone Number [facility] [address] [place] [address] * MARC SCREEN MULTIPLEX W/REFLEX JADE (03/24/2025 11:05 AM CDT) [facility] MARC SCR MULTIPLEX Negative Negative, See comment 03/27/2025 6:35 PM CDT [facility] Blood Venipuncture / Unknown 03/24/2025 11:05 AM CDT 03/24/2025 12:07 PM CDT Narrative [facility] - 03/27/2025 6:35 PM CDT Antibody testing was performed by multiplex flow immunoassay on the Jobpartners[employer] platform. us Not On File Provider IMMUNOLOGY ORDERABLES Final Result Performing Organization Address City/[facility]/ZIP Co de Phone Number [facility] [address] [place] [address], [place] * HM COLONOSCOPY (07/08/2024 12:00 AM SCRUB TECH) 07/08/2024 us Hernandez Altman MD PROCEDURE/MINOR SURGICAL ORDERABLES Final Result SCAN * HEPATITIS C RNA QUANT PCR VIRAL LOAD (10/23/2018 3:44 PM CDT) HCV RNA QUANT PCR NON DETECTED NON DETECTED 10/26/2018 1:20 PM CDT [facility] HCV RNA QT LOG10 <=0.00 Log10 IU/mL 10/26/2018 1:20 PM CDT [facility] Comment: LOG 10 is not applicable. Sample held in Serology for 1 month. Call Laboratory if further testing is desired. This test was performed using SE AmpliPrep SE Taq Man Real Time PCR. Blood specimen (specimen) Venipuncture / Unknown 10/23/2018 3:44 PM CDT 10/23/2018 4:31 PM CDT us Becca Obrien RN NURSERY, INBOUND SALES REPRESENTATIVE IMMUNOLOGY ORDERA BLES Final Result Performing Organization Address City/[facility]/ZIP Co de Phone Number [facility] [address] [place] [address], from Last 3 Months or Most Recently Relevant to Health Maintenance Insurance MEDICARE C [employer] Advance Directives * Full Code (Latest Code Status on File) Date Activated Date Inactivated Comments 09/06/2023 7:59 PM 09/08/2023 6:36 PM CPR-Full Treat ment: FULL ARREST: Attempt Resuscitation/CPR wit intubation and mechanical ventilation. PRE-ARREST: Use entire range of life support measures to stabilize the patient. Care Teams Cracker And Cookie Machine Operator Relationship Specialty Start Date End Date Areli Alarcon MD [address] [place] [address] PCP - General Internal Medicine 12/12/24 Valdemar Alcantara APRN [address] [place] [address] Nurse Practitioner Psychiatry 08/27/21 Doug Sanford [address] [address] Consulting Physician Endocrinology 08/27/21 Rose Mckeon MD #2 [place] [address] Consulting Physician Gastroenterology 08/27/21 Dilia Hansen MD [address]2 [place] [address] Consulting Physician Endocrinology 12/03/21 Marjorie Clark MD #[address] [phone] Consulting Physician Endocrinology 02/21/22 Kavon Renee DPM Podiatry 12/15/21 Fer Chauhan MD [address] [place] [address] Consulting Physician Neurology 12/05/22 Blaise Peterson MD #[address] [address] Consulting Physician Urology 01/03/23 Clayton Iyer PAC #2 [facility] [address] [place] [address] Physician Technology Resource Teacher Physician Technology Resource Teacher 01/24/24 Juliana Smith [address] [place] [address] Nurse Practitioner Neurology 02/14/24
--- OUTSIDE RECORDS SUMMARY | 2025-04-03 02:12 | XMS_ITS | Encounter Summary ---
Author Organization [facility] Address [address] [place] [address] Phone Care Team Providers Care Shank Pinner Name Role Phone Valdemar Alcantara Maira FIELDS Unavailable [phone] Hernandez Altman MD Primary Care Provider [phone] Doug Sanford Unavailable Rose Mckeon MD Unavailable [phone] Dilia Hansen MD Unavailable [phone] Marjorie Clark MD Unavailable Kavon Renee DPM Unavailable Unavailable Fer Chauhan MD Unavailable Blaise Peterson MD Unavailable [phone] Clayton Iyer PAC Unavailable [phone] Juliana Smith Unavailable [phone] Areli Alarcon MD Primary Care Provider Reason for Visit * Reason Comments Medication Refill Encounter Details Date Type Department Care Team (Late st Contact Info) Description 07/15/2023 Refill [facility] [address] [place] [phone] Hernandez Altman MD [address] [place] [address] Medication Refill Social History Tobacco Use Types Packs/Day Years Used Date Smoking Tobacco: Never Smokeless Tobacco: Never Alcohol Use Standard Drinks/Week Comments Not Currently 3 (1 standard drink = 0.6 oz pur e alcohol) PHQ-2 Answer Date Recorded Total Score - Questions 1-9 0 09/2023 Sexually Active Control Partners Comments Yes Sex and Gender Information Value Date Recorded Sex Assigned at Not on file Legal Sex Male 2:12 AM CDT Gender Identity Not on file Sexual Orientation Not on file documented as of this encounter Miscellaneous Notes * Telephone Encounter - Doug Hernandez RN - 07/17/2023 1:27 PM CST The original prescription was discontinued on 02/03/2023 by Guy Brannon RMA for the following reason: Dose adjustment. E SHOE EXAMINER documented in this encounter Plan of Treatment Upcoming Encounters Date Type Department Care Team (Late st Contact Info) Description 05/22/2025 8:45 AM WHITE SHOE EXAMINER Office Visit [facility] - End[facility]ology - [place] [address] [place] [address] Marjorie Clark MD #[address] [address] 06/10/2025 8:30 AM WHITE SHOE EXAMINER [facility] [place] [facility] [place] [address] Graciela Todd APRN, BLENDING OPERATOR [address] [place] [address] documented as of this encounter Visit Diagnoses Not on filedocumented in this encounter Additional Health Concerns Infection Onset Date Last Indicated Resolved Time C. difficile Rule-Out 08/11/2023 08/11/20232023 12:32 PM WHITE SHOE EXAMINER Assessment Noted Time PHQ-9 Depression Total Score: 0 06/08/19 24 9:26 AM WHITE SHOE EXAMINER documented as of this encounter Care Teams Shank Pinner Relationship Specialty Start Date End Date Hernandez Altman MD [address] [address] PCP - General Internal Medicine 08/27/21 12/11/24 Areli Alarcon MD [address] [place] [address] PCP - General Internal Medicine 12/12/24 Valdemar Alcantara APRN [address] [place] [address] Nurse Practitioner Psychiatry 08/27/21 Doug Sanford [address] [address] Consulting Physician Endocrinology 08/27/21 Rose Mckeon MD #[address] [place] [address] Consulting Physician Gastroenterology 08/27/21 Dilia Hansen MD [address] [place] [address] Consulting Physician Endocrinology 12/03/21 Marjorie Clark MD #[address] [phone] Consulting Physician Endocrinology 02/21/22 Kavon Renee DPM Podiatry 12/15/21 Fer Chauhan MD [address] [place] [address] Consulting Physician Neurology 12/05/22 Blaise Peterson MD #[address] [address] Consulting Physician Urology 01/03/23 Clayton Iyer PAC #2 [facility] [address] [place] [address] Physician Cob Sawyer Physician Cob Sawyer 01/24/24 Juliana Smith [address] [place] [address] Nurse Practitioner Neurology 02/14/24 documented as of this encounter
--- OUTSIDE RECORDS SUMMARY | 2025-04-03 02:12 | XMS_ITS | Encounter Summary ---
Author Organization [facility] Address [address] [place] [address] Phone Care Team Providers Care Operator And Truck Driver Name Role Phone Valdemar Alcantara Maira FIELDS Unavailable [phone] Hernandez Altman MD Primary Care Provider [phone] Doug Sanford Unavailable Rose Mckeon MD Unavailable [phone] Dilia Hansen MD Unavailable [phone] Marjorie Clark MD Unavailable Kavno Renee DPM Unavailable Unavailable Fer Chauhan MD Unavailable Blaise Peterson MD Unavailable [phone] Clayton Iyer PAC Unavailable [phone] Juliana Smith Unavailable [phone] Areli Alarcon MD Primary Care Provider Reason for Visit * Reason Comments Medication Refill Encounter Details Date Type Department Care Team (Late st Contact Info) Description 08/08/2023 Refill [facility] - Gastroenterology [facility] #[address] [place] [phone] Rose Mckeon MD [address] [place] [address] Medication Refill Social History Tobacco Use Types Packs/Day Years Used Date Smoking Tobacco: Never Smokeless Tobacco: Never Alcohol Use Standard Drinks/Week Comments Not Currently 3 (1 standard drink = 0.6 oz pur e alcohol) PHQ-2 Answer Date Recorded Total Score - Questions 1-9 0 /0 09/2023 Sexually Active Control Partners Comments Yes Sex and Gender Information Value Date Recorded Sex Assigned at Not on file Legal Sex Male 2:12 AM CDT Gender Identity Not on file Sexual Orientation Not on file documented as of this encounter Miscellaneous Notes * Telephone Encounter - Gela Pedro RN - 08/09/2023 9:26 AM LICENSED OCCUPATIONAL THERAPIST Pharmacy requesting refill of: Requested Prescriptions Pending Prescriptions Disp Refills mesalamine (LIALDA) 1.2 GM Tablet Delayed Response [Pharmacy Med Name: MESALAMINE DR 1.2 GM TABLET]180 Tablet 2 Sig: TAKE 2 TABLETS BY MOUTH EVERY DAY Last fill: 10/27/2022 Patients last OV with GI: 08/04/2022 Next Office Visit with GI: called patient, spoke with mother Zia on prd form. She asked that I call patient for an appt. Spoke with patient. Appt scheduled for 08/10/2023. Mesalamine order pended, please review. NSED OCCUPATIONAL THERAPIST documented in this encounter Plan of Treatment Upcoming Encounters Date Type Department Care Team (Late st Contact Info) Description 05/22/2025 8:45 AM LICENSED OCCUPATIONAL THERAPIST Office Visit [facility] - Endocrinology - [place] [address] [place] [address] Marjorie Clark MD #[address] [phone] 06/10/2025 8:30 AM LICENSED OCCUPATIONAL THERAPIST Office Visit [facility] - Neurology - [place] [address] [place] [address] Graciela Todd APRN, COLLECTION MANAGER [address] [place] [address] documented as of this encounter Visit Diagnoses Diagnosis Crohn's disease of large intestine without complications documented in this encounter Additional Health Concerns Infection Onset Date Last Indicated Resolved Time C. difficile Rule-Out 08/11/2023 08/11/20232023 12:32 PM LICENSED OCCUPATIONAL THERAPIST Assessment Noted Time PHQ-9 Depression Total Score: 0 06/08/19 9:26 AM LICENSED OCCUPATIONAL THERAPIST documented as of this encounter Care Teams Operator And Truck Driver Relationship Specialty Start Date End Date Hernandez Altman MD [address] [place] [address] PCP - General Internal Medicine 08/27/21 12/11/24 Areli Alarcon MD [address] [place] [address] PCP - General Internal Medicine 12/12/24 Valdemar Alcantara APRN [address] [place] [address] Nurse Practitioner Psychiatry 08/27/21 Doug Sanford [address] [address] Consulting Physician Endocrinology 08/27/21 Rose Mckeon MD #2 [place] [address] Consulting Physician Gastroenterology 08/27/21 Dilia Hansen MD #[address] [place] [address] Consulting Physician Endocrinology 12/03/21 Marjorie Clark MD #2 [facility] [address] [place] [address] Consulting Physician Endocrinology 02/21/22 Kavon Renee, DPM Podiatry 12/15/21 Fer Chauhan MD [address] [facility] [place] [address] Consulting Physician Neurology 12/05/22 Blaise Peterson MD #2 [facility] [address] [place] [address] Consulting Physician Urology 01/03/23 Clayton Iyer PAC #2 [facility] [address] [place] [address] Physician Concrete Pipe Plant Supervisor Physician Concrete Pipe Plant Supervisor 01/24/24 Juliana Smith [address] [facility] [address] [place] [address] Nurse Practitioner Neurology 02/14/24 documented as of this encounter
--- OUTSIDE RECORDS SUMMARY | 2025-04-03 02:12 | XMS_ITS | Clinical Summary ---
Author Organization [facility] Administrative Offices Address [address] [place] [address] Care Team Providers Care Assistant Therapy Aide Name Role Phone Hernandez Altman MD Primary Care Provider [phone] Allergies Active Allergy Reactions Criticality Noted Date Comments Sulfa (Sulfonamide Antibiotics) Unknown 09/04 Medications allopurinoL (ZYLOPRIM) 100 mg tablet Take 1 Tablet by mouth daily. 4 Active testosterone cypionate (DEPO-TESTOSTER ONE) 200 mg/mL Oil 0.5 mL (100 mg) IM every 7 days 2 Active BD Luer-Hasmukh Syringe 3 mL 21 gauge x 1 Syringe USE 1 NEEDLE BY INTRAMUSCULAR ROUTE EVERY 7 DAYS. Active propranoloL (INDERAL LA) 160 mg Long Acting 24 hour capsule Take 160 mg by mouth daily. Active gabapentin (NEURONTIN) 300 mg capsule Take 300 mg by mouth. 4 Active SUMAtriptan (IMITREX) 50 mg tablet Take 50 mg by mouth. 3 Active busPIRone (BUSPAR) 10 mg tablet TAKE 1 TABLET 3 TIMES A DAY BY ORAL ROUTE. 3 Active DULoxetine (CYMBALTA) 60 mg Capsule, Delayed Release(E.C.) Take 60 mg by mouth daily. Active famotidine (PEPCID) 40 mg tabletIndicatio ns:Small intestinal bacterial overgrowth (SIBO) Take 1 Tablet (40 mg) by mouth 2 times daily. 180 Tablet 3 5 Active amLODIPine (NORVASC) 10 mg tablet Take 10 mg by mouth daily. Active rosuvastatin (CRESTOR) 40 mg tablet Take 40 mg by mouth daily. Active colestipoL (Colestid) 1 gram tabletIndicatio ns:Bile salt-induced diarrhea Take 1 Tablet (1 Gram) by mouth 2 times daily. 180 Tablet 3 Active RABEprazole (Aciphex) 20 mg Tablet, Delayed Release (E.C.)Indicatio ns:Gastroesopha geal reflux disease with esophagitis without hemorrhage Take 1 Tablet (20 mg) by mouth daily. 90 Tablet 3 Active Active Problems Problem Noted Date Diagnosed Date Eosinophilic enteritis 07/02/2024 Eosinophilic esophagitis 07/02/2024 Hiatal hernia 02/20/2024 Status post laparoscopic sleeve gastrectomy 02/03 Irritable bowel syndrome 09/28/2023 Small intestinal bacterial overgrowth (SIBO) Encounters Date Type Department Care Team Description 01/09/2025 Chart Note [facility] Gastroenterology [facility] [address] [facility] [address] [place] [phone] Veronica Mcguire from Last 3 Months Social History Tobacco Use Types Packs/Day Years Used Date Smoking Tobacco: Never Smokeless Tobacco: Never Tobacco Cessation:Counseling Given: Not Answered Alcohol Use Standard Drinks/Week Comments Not Currently 0 (1 standard drink = 0.6 oz pur e alcohol) Feeling Safe Answer Date Recorded Are you in a relationship wi th someone who hurts you emotionally and/or physically? No 07/08/2024 Sex and Gender Information Value Date Recorded Sex Assigned at Not on file Legal Sex Male 10:18 AM CDT Gender Identity Not on file Sexual Orientation Not on file Last Filed Vital Signs Vital Sign Reading Time Taken Comments Blood Pressure 114/77 10/07/2024 10:36 AM CDT Pulse 65 10/07/2024 10:36 AM CDT Temperature 36.7 C (98 F) 10/07/2024 10:36 AM CDT Respiratory Rate 18 10/07/2024 10:3 6 AM CDT Oxygen Saturation 96% 10/07/2024 10: 36 AM CDT Inhaled Oxygen Concentration - - Weight 106.1 kg (233 lb 12.8 oz) 2024 10:36 AM CDT Height 180.3 cm (5' 11) 10/07/2024 10: 36 AM CDT Body Mass Index 32.61 10/07/2024 10:36 AM CDT Plan of Treatment Upcoming Encounters Date Type Department Care Team (Late st Contact Info) Description 04/14/2025 11:00 AM BUSINESS ASSISTANT Office Visit [facility] [place] [address] [place] [address] Rolanda Arias, MASTER CERTIFIED RV TECHNICIAN [address] [place] [address] Health Maintenance Due Date Last Done Comments Pre-Diabetes and Diabetes Screening 1975 HEPATITIS B VACCINES (1 of 3 - 19+ 3-dose series) 1993 FIT-DNA Q 3 years 11/09/2019 FIT/FOBT Q 1 year 11/09/2019 Flex Sig/CT Colonography Q 5 years 11/09/2019 ZOSTER VACCINE (1 of 2) 2024 INFLUENZA VACCINE (#1) 2025 4, 03/21/2023, 03/22/2022, Additional history exists COVID-19 Vaccine ( - 2024-2 6 season) 2025 06/07/2022, 03/27/2021, 02/13/2021 DTAP/TDAP/TD VACCINES (4 - T d or Tdap) 03/06/2029 03/06/2019, 07/26/2018, 08/03/2015 COLORECTAL SCREENING 07/08/2034 07/08/2024, 07/08/2024, 07/08/2024, Additional history exists Colorectal Cancer Screening 07/08/2034 Procedures Procedure Name Priority Date/Time Associated Diagnosis Comments COLONOSCOPY REPORT 07/08/2024 1: 44 PM BUSINESS ASSISTANT from Last 3 Months or Most Recently Relevant to Health Maintenance Results * COLONOSCOPY REPORT (07/08/2024 1:44 PM BUSINESS ASSISTANT) Narrative Procedure Note Myla Andrea MD - 07/08/2024 1:44 PM CST [facility] Endoscopy Patient Name: Mitch Delatorre Procedure Date: 07/08/2024 Date of : 1975 Attending MD: Myla Andrea MD, Procedure: Colonoscopy Indications: Chronic diarrhea Providers: Myla Andrea MD Referring MD: Hernandez Altman MD Medicines: Monitored Anesthesia Care Complications: No immediate complications. Procedure: Informed consent was obtained for the procedure, including moderate sedation after risks were discussed. Based on the pre-procedure assessment, including review of the patient's medical history, medications, allergies, and review of systems, the patient was deemed to be an appropriate candidate for sedation. A timeout was performed. Continuous ECG monitoring, pulse oximetry, blood pressure monitoring, and direct observation were performed. The Colonoscope was introduced through the anus and advanced to the cecum, identified by appendiceal orifice and ileocecal valve. The colonoscopy was performed without difficulty. The patient tolerated the procedure well. The quality of the bowel preparation was fair. Findings: The perianal and digital rectal examinations were normal. Normal mucosa was found in the entire colon. Biopsies were taken with a cold forceps for histology. A 5 mm polyp was found in the proximal ascending colon. The polyp was sessile. The polyp was removed with a cold snare. Resection and retrieval were complete. Impression: - Preparation of the colon was fair. - Normal mucosa in the entire examined colon. Biopsied. - One 5 mm polyp in the proximal ascending colon, removed with a cold snare. Resected and retrieved. - Small Internal hemorrhoids. Recommendation: - Discharge patient to home. - Advance diet as tolerated. - Await pathology results. - Repeat colonoscopy for surveillance based on pathology results. Procedure Code(s): --- Professional --- 69626, Colonoscopy, flexible; with removal of tumor(s), polyp(s), or other lesion(s) by snare technique 51932, 59, Colonoscopy, flexible; with biopsy, single or multiple CPT copyright 2020 [employer]. All rights reserved. The codes documented in this report are preliminary and upon retaining room cutter review may be revised to meet current compliance requirements. Myla Andrea MD 07/08/2024 1:44:31 PM This report has been signed electronically. Number of Addenda: [id number], [place] [address] Myla Andrea MD GI PROCEDURE ORDERABLES Final Re sult from Last 3 Months or Most Recently Relevant to Health Maintenance Insurance MEDICAID [place] [employer] [facility] Care Teams Assistant Therapy Aide Relationship Specialty Start Date End Date Hernandez Altman MD [address] [place] [address] PCP - General Internal Medicine 10/13/22
--- OUTSIDE RECORDS SUMMARY | 2025-04-03 02:12 | XMS_ITS | Encounter Summary ---
Author Organization [facility] Address [address] [place] [address] Phone Care Team Providers Care Cradle Placer Name Role Phone Quinton Valdemar Rao APRN Unavailable Doug Sanford Unavailable Rose Mcekon MD Unavailable [phone] Dilia Hansen MD Unavailable [phone] Marjorie Clark MD Unavailable Kavon Renee DPM Unavailable Unavailable Fer Chauhan MD Unavailable [phone] Blaise Peterson MD Unavailable [phone] Clayton Iyer PAC Unavailable Juliana Smith Unavailable [phone] Areli Alarcon MD Primary Care Provider Reason for Visit * Reason Onset Date Comments Results 03/31/2025 Encounter Details Date Type Department Care Team (Late st Contact Info) Description 03/31/2025 Results Follow-Up [facility] - Endocrinology - [place] [address] [place] [address] Marjorie Clark MD [address] [address] CMP (COMPREHENSIVE METABOLIC PANEL), PSA SCREEN, LIPID PANEL, Additional followed-up results: 2 Social History Tobacco Use Types Packs/Day Years Used Date Smoking Tobacco: Never Smokeless Tobacco: Never Alcohol Use Standard Drinks/Week Comments Yes 3 (1 standard drink = 0.6 oz pur e alcohol) [facility] Utilities Answer Date Recorded In the past 12 months has e electric, gas, oil, or water company threatened to shut off services in your home? Patient declined 09/06/2023 Social Connection and Isolation Panel Answer Date Recorded In a typical week, how many times do you talk on the phone with family, friends, or neighbors? Patient declined 09/06/2023 How often do you get togethe r with friends or relatives? Patient declined 09/06/2023 How often do you attend mormon or restorationist serv ices? Patient declined 09/06/2023 Do you belong to any clubs o r organizations such as mormon groups, unions, fraternal or athletic groups, or [...] Total Score - Questions 1-9 0 09/2023 [facility] [place] of Occupat ional Health - Occupational Stress Questionnaire Answer Date Recorded [...] place to sleep or slept in a fci (including now)? Patient declined 09/06/2023 Sexually Active Control Partners Comments Yes Sex and Gender Information Value Date Recorded Sex Assigned at Not on file Legal Sex Male 2:12 AM CDT Gender Identity Not on file Sexual Orientation Not on file documented as of this encounter Progress Notes * Gela Ortiz RN - 04/02/2025 11:08 AM CDT Patient states he's getting shoulder surgery tomorrow and they made him stop taking the testosterone, but he will resume it after the surgery. documented in this encounter Miscellaneous Notes * Telephone Encounter - Marjorie Clark MD - 03/31/2025 9:56 PM CDT Please inform him that total testosterone concentration was low. CBC test result was notable for erythrocytosis. PLAN: Check compliance to testosterone cypionate IM Check whether he took lab work at mid-cycle of testosterone injection Further plan based on #1-2 documented in this encounter Plan of Treatment Upcoming Encounters Date Type Department Care Team (Late st Contact Info) Description 05/22/2025 8:45 AM CREEL CLEANER Office Visit [facility] - Endocrinology - [place] [address] [place] [address] Marjorie Clark MD [address] [address] 06/10/2025 8:30 AM CREEL CLEANER Office Visit [facility] - Neurology - [place] [address] [place] [address] Graciela Todd APRN, MANAGER COST [address] [place] [address] documented as of this encounter Visit Diagnoses Not on filedocumented in this encounter Additional Health Concerns Assessment Noted Time PHQ-9 Depression Total Score: 0 06/08/19 24 9:26 AM CREEL CLEANER documented as of this encounter Care Teams Cradle Placer Relationship Specialty Start Date End Date Areli Alarcon MD [address] [place] [address] PCP - General Internal Medicine 12/12/24 Valdemar Alcantara, GROCERY CLERK MARKING [address] [place] [address] Nurse Practitioner Psychiatry 08/27/21 Doug Sanford [address] [facility] [address] [place] [address] Consulting Physician Endocrinology 08/27/21 Rose Mckeon MD [address] [place] [address] Consulting Physician Gastroenterology 08/27/21 Dilia Hansen MD [address] [place] [address] Consulting Physician Endocrinology 12/03/21 Marjorie Clark MD [address] [phone] Consulting Physician Endocrinology 02/21/22 Kavon Renee DPM Podiatry 12/15/21 Fer Chauhan MD [address] [place] [address] Consulting Physician Neurology 12/05/22 Blaise [place] MD [address] [address] Consulting Physician Urology 01/03/23 Clayton Iyer PAC [address] [address] Physician Maintenance Worker Swimming Pool Physician Maintenance Worker Swimming Pool 01/24/24 Juliana Smith [address] [place] [address] Nurse Practitioner Neurology 02/14/24 documented as of this encounter
--- OUTSIDE RECORDS SUMMARY | 2025-04-03 02:12 | XMS_ITS | Encounter Summary ---
Author Organization [facility] Health Address [address] [place] [address] Care Team Providers Care Theater Usher Name Role Phone Hernandez Altman MD Primary Care Provider [phone] Encounter Details Date Type Department Care Team (Late st Contact Info) Description 02/28/2023 Ophth Exam [facility] - Ophthalmology [address] [place] [address] Lori Lemus DO [address] [place] [phone] Social History Tobacco Use Types Packs/Day Years Used Date Smoking Tobacco: Never Smokeless Tobacco: Never Alcohol Use Standard Drinks/Week Comments Yes 6 (1 standard drink = 0.6 oz pur e alcohol) every other day AUDIT-C Answer Date Recorded Q1: How often do you have a drink containing alcohol? 4 or more times a week 03/01/2023 Q2: How many drinks containi ng alcohol do you have on a typical day when you are drinking? 3 or 4 Q3: How often do you have si x or more drinks on one occasion? Never 03/01/2023 Overall Financial Resource Strain (CARDIA) Answe r Date Recorded How hard is it for you to pa y for the very basics like food, housing, medical care, and heating? Not hard at all 03/01/2023 [facility] [place] of Occupat ional Health - Occupational Stress Questionnaire Answer Date Recorded Do you feel stress - tense, restless, nervous, or anxious, or unable to sleep at night because your mind is troubled all the time - these days? Not at all 03/01/2023 Hunger Vital Sign Answer Date Recorded Within the past 12 months, y ou worried that your food would run out before you got the money to buy more. Never true 03/01/20 23 Within the past 12 months, t he food you bought just didn't last and you didn't have money to get more. Never true 03/01/2023 PRAPARE - Transportation Answer Date Re corded In the past 12 months, has l ack of transportation kept you from medical appointments or from getting medications? No 02/04 In the past 12 months, has l ack of transportation kept you from meetings, work, or from getting things needed for daily living? No 03/01/2023 Housing Stability Vital Sign Answer [place] e Recorded In the last 12 months, was t here a time when you were not able to pay the mortgage or rent on time? No 03/01/2023 In the last 12 months, how many places have you lived? 1 03/01/2023 In the last 12 months, was t here a time when you did not have a steady place to sleep or slept in a [place] [facility] [place] facility (including now)? No 03/01/2023 Sex and Gender Information Value Date Recorded Sex Assigned at Not on file Legal Sex Male 6:01 AM BATCH DUMPER Gender Identity Not on file Sexual Orientation Not on file documented as of this encounter Functional Status * Functional and Cognitive Status Question Answer Date of Assessment Author Is person deaf or have barney us hearing difficulty? No 03/01/2023 12:30 AM Eneida Strickland RN Is person blind or have seri ous difficulty seeing? No 03/01/2023 12:30 AM Eneida Strickland RN Does person have serious difficulty walking/climbing stairs? No 03/01/2023 12:30 AM Eneida Strickland RN Does person have difficulty dressing/bathing? No 03/01/2023 12:30 AM Eneida Strickland RN Does person have difficulty doing errands alone? No 03/01/2023 12:30 AM Eneida Strickland RN Does person have difficulty concentrating/remembering/making decisions? No 03/01/2023 12:30 AM Eneida Strickland RN * Question Answer Date of Assessment Author Q1: How often do you have a drink containing alcohol? 4 or more times a week 03/01/2023 12:00 AM Eneida Strickland RN Q2: How many drinks containing alcohol do you have on a typical day when you are drinking? 3 or 4 03/01/2023 12:00 AM Eneida Strickland RN Q3: How often do you have six or more drinks on one occasion? Never 03/01/2023 12:00 AM Eneida Strickland RN * AUDIT-C Score Answer Date of Assessment Author 5 03/01/2023 12:00 AM Eneida Strickland RN documented as of this encounter Plan of Treatment Not on file documented as of this encounter Visit Diagnoses Not on filedocumented in this encounter Care Teams Theater Usher Relationship Specialty Start Date End Date Hernandez Altman MD [address] [place] [address] PCP - General Internal Medicine 08/27/21 08/08/24 documented as of this encounter
--- OUTSIDE RECORDS SUMMARY | 2025-04-03 02:12 | XMS_ITS | Clinical Summary ---
Author Organization [facility] [address] Address [address] [place] [address] Phone Care Team Providers Care Mail Messenger Name Role Phone Hernandez Altman MD Primary Care Provider + Allergies Active Allergy Reactions Criticality Noted Date Comments Ibuprofen Nausea only Low 09/15/2023 Nabumetone Hallucinations,Other (See comments) Medium 05/25/2010 Seeing Red dots Sulfa (Sulfonamide Antibiotics) Unknown 09/28/2023 Medications metoprolol XL (TOPROL XL) 50 mg 24 hr tablet take 1 tablet by oral route every day 0 0 07/08/[address] (CYMBALTA) 60 mg capsule take 1 capsule by oral route every day 0 0 07/08/[address] (ACIPHEX) 20 mg EC tablet take 1 tablet by oral route 2 times every day swallowing whole. Do not crush, chew and/or divide. 0 0 07/08/19 17 Active allopurinol (ZYLOPRIM) 100 mg tablet take 1 tablet by oral route every day 0 0 07/08/19 17 Active traZODone (DESYREL) 100 mg tablet take 1 tablet by oral route 2 times every day after meals 0 0 07/08/19 17 Active Additional Information Patient not taking.Reported on 2023 mesalamine (LIALDA) 1.2 gram EC tablet take 2 tablet by oral route every day with a meal 0 0 07/08/19 17 Active syringe with needle (BD TUBERCULIN SYRINGE) 1 mL 21 gauge x 1 syringe USE WITH TESTOSTERONE ONCE WEEKLY DIRECTED 01/07/20 16 Active gabapentin (NEURONTIN) 300 mg capsule Take 1 capsule (300 mg total) by mouth 3 (three) times a day Active lamoTRIgine (LaMICtal) 100 mg tablet 06/20/19 20 Active cyclobenzaprine (FLEXERIL) 10 mg tablet TAKE 1 TABLET BY MOUTH TWICE A DAY NEEDED FOR 30 DAYS. 09/11/19 21 Active folic acid (FOLVITE) 1 mg tablet Take 1 tablet (1 mg total) by mouth daily 02/28/20 20 Active testosterone cypionate (DEPO-TESTOTERONE ) 200 mg/mL injectionIndicati ons:Secondary male hypogonadism INJECT 0.75 ML INTRAMUSCULARLY ONCE EVERY WEEK 4 mL 2 05/12/20 22 Active BD Luer-Hasmukh Syringe 3 mL 22 gauge x 1 syringe USE ONCE WEEKLY TO ADMINISTER TESTOSTERONE DIRECTED. 30 each 11 05/12/20 22 Active meloxicam (MOBIC) 15 mg tablet Take 1 tablet (15 mg total) by mouth daily Active famotidine (PEPCID) 20 mg tablet Take 1 tablet (20 mg total) by mouth 2 (two) times a day Active ondansetron (ZOFRAN) 8 mg tablet Take by mouth every 8 (eight) hours as needed for nausea or vomiting Active pantoprazole DR (PROTONIX) 40 mg EC tablet Take 1 tablet (40 mg total) by mouth daily Active sumatriptan succinate (IMITREX ORAL) Take by mouth A ctive busPIRone (BUSPAR) 10 mg tablet TAKE 1 TABLET 3 TIMES A DAY BY ORAL ROUTE. Active clonazePAM (KlonoPIN) 0.125 mg disintegrating tablet Take 1 tablet (0.125 mg total) by mouth 2 (two) times a day as needed 03/01/20 23 Active colestipoL (COLESTID) 1 gram tablet Take 1 tablet (1 g total) by mouth 2 (two) times a day 08/05/19 23 Active dicyclomine (BENTYL) 20 mg tablet Take 1 tablet (20 mg total) by mouth 3 (three) times a day as needed 09/28/19 24 Active ondansetron ODT (ZOFRAN-ODT) 4 mg disintegrating tablet Take 1 tablet (4 mg total) by mouth 09/08/19 24 Active propranolol LA (INDERAL LA) 160 mg 24 hr capsule Take 1 capsule (160 mg total) by mouth daily 03/21/20 23 Active QUEtiapine (SEROquel) 50 mg tablet Take 1 tablet (50 mg total) by mouth 07/11/19 24 Active Xifaxan 550 mg tablet TAKE 1 TABLET BY MOUTH 3 TIMES DAILY FOR 14 DAYS. Active zolpidem (AMBIEN) 10 mg tablet Take 1 tablet (10 mg total) by mouth nightly 09/07/19 24 Active QUEtiapine (SEROquel) 100 mg tablet Take 1 tablet (100 mg total) by mouth nightly 10/26/19 24 Active Active Problems Problem Noted Date Diagnosed Date Pituitary adenoma 11/09/2023 Other male erectile dysfunction 11/27/2020 Chronic hepatitis C without hepatic coma 020 Fracture of distal phalanx of finger of left hudson d 03/08/2019 Secondary male hypogonadism 10/01/2018 Elbow pain 08/12/2016 Overview (10/28/2016): Elbow pain Gout 07/08/2016 Overview (09/08/2016): Gout Pain of upper extremity 07/08/2016 Overview (09/08/2016): Arm pain Pain of finger 07/08/2016 Overview (09/08/2016): Finger pain Gastroesophageal reflux disease 09/11/2015 Pituitary neoplasm 10/15/2013 Overview (11/04/2020): Pituitary tumor Crohn's disease 04/13/2010 Overview (11/04/2020): Crohns disease Numbness of left hand Encounters Date Type Department Care Team Description 01/16/2025 8:18 AM CDT - 01/16/2025 11:59 PM CDT Hospital Encounter [facility] [address] [place] [id number] Rad, Amh Fluoro Unilateral primary osteoarthritis, left hip Discharge Disposition: Discharge to home or self care from Last 3 Months Immunizations Immunization Administration Dates Next Due Tdap 03/06/2019,07/26/2018 Surgical History Surgery Date Site/Laterality Comments KIDNEY SURGERY 06/05/1997 - 06/04/1998 Left total nephrectomy SHOULDER SURGERY SHOULDER ARTHROSCOPY SPINAL FUSION FOOT SURGERY IR INJECTION ARTHROGRAM SI JOINT LEFT INCLUDES IMAGING GUIDANCE 07/03/2019 Left CHOLECYSTECTOMY STOMACH SURGERY 06/05/2015 - 06/04/2016 sleeve gastrectomy APPENDECTOMY SPINAL CORD STIMULATOR IMPLANT 06/16/2023 FL FLUORO GUIDED INJECTION H IP LEFT 01/16/2025 Left Medical History Medical History Date Comments Hx Other Medical Fx. L1, L2, L3. in the past.; Comments: [facility] 07/11/2016 - Hx Other Medical Bladder stimula tor.; Comments: [facility] 07/11/2016 - Hx Other Medical Bilateral shoul arlen surgery x 2 in the past.; Comments: [facility] 07/11/2016 - Hx Other Medical Bilateral foot surgery x 2 in the past.; Comments: [facility] 07/11/2016 - Hx Other Medical 07-20-16 Right l ateral epicondylar release/left ind; Comments: [facility] 08/03/2016 - Hypertension Hypercholesteremia Gastric reflux Peptic ulceration Gout Depression Pituitary tumor 2012 Hiatal hernia GERD (gastroesophageal reflux disease) Alcohol induced acute pancreatitis Seasonal allergies YELITZA on CPAP Hyperlipidemia Crohn disease (HCC) Chronic pain Fibromyalgia Gout Gastritis Family History Medical History Relation Name Comments Arthritis Other Gout Other Heart disease Other Hypertension Other Kidney disease Other Other Other Family history of early heart attack before age 60, early stroke before age 60, diabetes, hypertension and arthritis.; Relation Name Status Comments Other Social History Tobacco Use Types Packs/Day Years Used Date Smoking Tobacco: Never Passive Smoke Exposure: Never Smokeless Tobacco: Never Tobacco Cessation:Counseling Given: Not Answered Alcohol Use Standard Drinks/Week Comments Yes 0 (1 standard drink = 0.6 oz pur e alcohol) Personal Safety Answer Date Recorded Have you ever been in or are you currently in a harmful physical or emotional relationship or is someone making you feel afraid or unsafe? 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 Gender Identity Not on file Sexual Orientation Not on file Obstetrics History Last Filed Vital Signs Vital Sign Reading Time Taken Comments Blood Pressure 160/98 02/01/2024 7:30 AM CDT Pulse 77 02/01/2024 7:30 AM CDT Temperature 36.3 C (97.3 F) 02/01/2024 6:12 AM CDT Respiratory Rate 18 02/01/2024 6:12 AM CDT Oxygen Saturation 97% 02/01/2024 7:30 AM CDT Inhaled Oxygen Concentration - - Weight 106.6 kg (235 lb) 11/26/2024 11:01 AM CDT Height 180.3 cm (5' 11) 11/26/2024 11:01 AM CDT Body Mass Index 32.78 11/26/2024 11:01 AM CDT Plan of Treatment Health Maintenance Due Date Last Done Comments Colon Cancer Screening-Colonoscopy 1974 Depression Screening 1974 Prostate Cancer Screening-PSA 1974 Hepatitis B Screening 1992 Regular Well Visit/Exam 18-64 1992 Pneumococcal vaccine <65 (2 of 2 - PCV) 06/05/2006 06/05/2005 Zoster Vaccine (1 of 2) 2024 Covid-19 Vaccine (3 - 2024-2 6 season) 2025 03/27/2021, 02/13/2021 Influenza Vaccine (#1) 2025 , 03/21/2023, 03/22/2022, Additional history exists DTaP/Tdap/Td Vaccine (4 - Td or Tdap) 03/06/2029 03/06/2019, 07/26/2018, 08/03/2015, Additional history exists Hepatitis C Screening Completed 2023 , 11/26/2019, 10/10/2013 Medical Devices Implanted Type Area Home Health Manager Device Identifier Shelf Expiration Date Model / Serial / Lot Neurostimulator Bladder-06/16/2023 Implanted: 024 by Blaise Peterson MD (Quantity not on file) Neurostimulator Pelvis Medtronic Neuro [id number] / / Neurostimulator Bladder Lead-06/16/2023 Implanted: 024 by Blaise Peterson MD (Quantity not on file) Neurostimulator Pelvis Medtronic Neuro [id number] / / Procedures Procedure Name Priority Date/Time Associated Diagnosis Comments FL FLUORO GUIDED INJECTION HIP LEFT Schedule Routine, Read Routine (OP Routine) 01/16/2025 9:00 AM CDT Unilateral primary osteoarthritis, left hip from Last 3 Months Results * FL Fluoro Guided Injection Hip Left (01/16/2025 9:00 AM CDT) Anatomical Region Laterality Modality Hip Left Radio Fluoroscop y 01/16/2025 9:5 0 AM CDT Narrative 01/16/2025 9:51 AM CDT EXAM DESCRIPTION: FL FLUORO GUIDED INJECTION HIP LEFT REASON FOR STUDY: Unilateral primary osteoarthritis, left hip Chronic left hip pain FT 6.2 sec Dose 1.4282 mGy Hip pain. COMPARISON: 06/20/2019 RADIATION DOSE: Dose: 1.42 A2 mGy Reference Air Kerma (Ka,r) TECHNIQUE/FINDINGS: Risk, benefits, and alternatives of the procedure were explained to the patient and informed consent was obtained. Questions answered. The correct hip was marked and a time-out was performed. The area was prepped and draped in the usual sterile fashion. Utilizing fluoroscopic guidance, a 22-gauge spinal needle was directed into the hip joint space and a small amount of water-soluble non-ionic contrast was injected to confirm intra-articular placement. 1 mL of 40 mg/mL triamcinolone acetonide and 2 mL of 0.2% ropivacaine were injected without complication. No immediate complications. IMPRESSION: Successful left hip steroid injection. THIS IS AN ELECTRONICALLY VERIFIED FINAL REPORT 01/16/2025 9:51 AM - Electronically signed by Ramsey Basilio M.D. NS: NS Report ID: [id number] Reading Location: [id number] Procedure Note Ramsey Basilio MD - 01/16/2025 EXAM DESCRIPTION: FL FLUORO GUIDED INJECTION HIP LEFT REASON FOR STUDY: Unilateral primary osteoarthritis, left hip Chronic left hip pain FT 6.2 sec Dose 1.4282 mGy Hip pain. COMPARISON: 06/20/2019 RADIATION DOSE: Dose: 1.42 A2 mGy Reference Air Kerma (Ka,r) TECHNIQUE/FINDINGS: Risk, benefits, and alternatives of the procedure were explained to the patient and informed consent was obtained. Questions answered. Thecorrect hip was marked and a time-out was performed. The area was prepped and draped in the usual sterile fashion. Utilizing fluoroscopic guidance, a 22-gauge spinal needle was directed into thehip joint space and a small amount of water-soluble non-ionic contrast was injected to confirm intra-articular placement. 1 mL of 40 mg/mL triamcinolone acetonide and 2 mL of 0.2% ropivacaine were injectedwithout complication. No immediate complications. IMPRESSION: Successful left hip steroid injection. THIS IS AN ELECTRONICALLY VERIFIED FINAL REPORT 01/16/2025 9:51 AM - Electronically signed by Ramsey Basilio M.D. NS: NS Report ID: [id number] Reading Location: [place] [address] Mina Bright MD IMG FLUOROSCOPY PROCEDURES Fi nal Result from Last 3 Months Insurance MEDICARE [facility] MEDICAID [facility] MEDICARE MEDICARE IDSD [employer] MEDICAID [facility] Care Teams Mail Messenger Relationship Specialty Start Date End Date Hernandez Altman MD [address] [address] PCP - General Internal Medicine 02/01/24
--- OUTSIDE RECORDS SUMMARY | 2025-04-03 02:12 | XMS_ITS | Encounter Summary ---
Author Organization [facility] Address [address] [place] [address] Phone Care Team Providers Care Primary Products Inspectors Name Role Phone Valdemar Alcantara Maira FIELDS Unavailable Hernandez Altman MD Primary Care Provider [phone] Doug Sanford Unavailable Rose Mckeon MD Unavailable [phone] Dilia Hansen MD Unavailable [phone] Marjorie Clark MD Unavailable Kavon Renee DPM Unavailable Unavailable Fer Chauhan MD Unavailable Blaise Peterson MD Unavailable [phone] Clayton Iyer PAC Unavailable [phone] Juliana Smith Unavailable [phone] Areli Alarcon MD Primary Care Provider Reason for Visit * Reason Comments Medication Refill Encounter Details Date Type Department Care Team (Late st Contact Info) Description 07/20/2023 Refill [facility] - Gastroenterology [facility] [address] [place] [phone] Rose Mckeon MD [address] [place] [address] Medication Refill Social History Tobacco Use Types [...] Telephone Encounter - Gela Pedro RN - 07/20/2023 9:48 AM BEAD WIRE TAPER Medication refilled and signed per [facility] chronic medication standing order for pediatric and adult patients. WIRE TAPER documented in this encounter Plan of Treatment Upcoming Encounters Date Type Department Care Team (Late st Contact Info) Description 05/22/2025 8:45 AM BEAD WIRE TAPER Office Visit [facility] - Endocrinology - [place] [address] [place] [address] Marjorie Clark MD [address] [address] 06/10/2025 8:30 AM BEAD WIRE TAPER Office Visit [facility] - Neurology - [place] [address] [place] [address] Graciela Todd APRN, VALUE ANALYSIS COORDINATOR [address] [place] [address] documented as of this encounter Visit Diagnoses Diagnosis Chronic diarrhea Diarrhea documented in this encounter Additional Health Concerns Infection Onset Date Last Indicated Resolved Time C. difficile Rule-Out 08/11/2023 08/11/20232023 12:32 PM BEAD WIRE TAPER Assessment Noted Time PHQ-9 Depression Total Score: 0 06/08/19 9:26 AM BEAD WIRE TAPER documented as of this encounter Care Teams Primary Products Inspectors Relationship Specialty Start Date End Date Hernandez Altman MD [address] [place] [address] PCP - General Internal Medicine 08/27/21 12/11/24 Areli Alarcon MD [address] [place] [address] PCP - General Internal Medicine 12/12/24 Valdemar Alcantara, UNEMPLOYMENT INSURANCE HEARING OFFICER [address] [place] [address] Nurse Practitioner Psychiatry 08/27/21 Doug Sanford [address] [address] Consulting Physician Endocrinology 08/27/21 Rose Mckeon MD [address] [place] [address] Consulting Physician Gastroenterology 08/27/21 Dilia Hansen MD [address] [place] [address] Consulting Physician Endocrinology 12/03/21 Marjorie Clark MD #[address] [phone] Consulting Physician Endocrinology 02/21/22 Kavon Renee DPM Podiatry 12/15/21 Fer Chauhan MD [address] [facility] [place] [address] Consulting Physician Neurology 12/05/22 Blaise Peterson MD #[address] [address] Consulting Physician Urology 01/03/23 Clayton Iyer PAC [address] [address] Physician Bisque Ware Dipper Physician Bisque Ware Dipper 01/24/24 Juliana Smith [address] [facility] [address] [place] [address] Nurse Practitioner Neurology 02/14/24 documented as of this encounter
--- OUTSIDE RECORDS SUMMARY | 2025-04-03 02:12 | XMS_ITS | Patient Health Record ---
Author Organization [facility] Address [address] [place] [address] Care Team Providers Care Compound Mixer Name Role Phone Vicente Hirsch Unavailable [phone] Reason For Referral No Information Medications Medication SIG (Take, Route, Frequency, Duration) Notes Start Date End Date Status DULoxetine HCl 60 MG Capsule Delayed Release Particles Oral 01/12/2022 Active Colestipol HCl 1 GM Tablet Oral 01/12/2022 Active LUER-KRISTEN SYRINGE-NEEDLE 3 mL 22 gauge x 1 SYRINGE, EMPTY DISPOSABLE MISCELLANEOUS *Reorder from Daily Aisle for eRx and Interaction Alerts* 01/12/2022 Active Erythromycin 5 MG/GM Ointment Ophthalmic 01/12/2022 Active Allopurinol 100 MG Tablet Oral 01/12/2022 Active Mesalamine 1.2 GM Tablet Delayed Release Oral 01/12/2022 Active RABEprazole Sodium 20 MG Tablet Delayed Release Oral 01/12/2022 Active Testosterone Cypionate 200 MG/ML Solution Intramuscular 01/12/2022 Active Metoprolol Succinate ER 50 MG Tablet Extended Release 24 Hour Oral 01/12/2022 Active busPIRone HCl 5 MG Tablet Oral 01/12/2022 Active traZODone HCl 100 MG Tablet Oral 01/12/2022 Active Immunizations Vaccine Route Administration Date Status Comme nts Tdap Unknown 08/03/2015 Administered Tdap Unknown 07/26/2018 Administered Tdap Unknown 03/06/2019 Administered Td (adult), adsorbed Unknown 06/05/2004 Administered Pneumococcal polysaccharide PPV23 Unknown 06/05/2005 Ad ministered Pfizer Biontech Covid-19 Vac cine 2nd dose Unknown 02/13/2021 Administered Pfizer Biontech Covid-19 Vac cine 2nd dose Unknown 03/27/2021 Administered Novel [id number], preservative free Unknown 03/20/2017 Administered Novel [id number], preservative free Unknown 04/12/2018 Administered Influenza, seasonal, injecta ble, preservative free, 3 yrs and above Unknown 06/05/2012 Administered Influenza, seasonal, injecta ble, preservative free, 3 yrs and above Unknown 03/05/2014 Administered Influenza virus vaccine, quadrivalent (IIV4), split virus, 0.25 mL dosage Unknown 05/05/2018 Administered Social History Social History Additional Details Category Social Info Options Details Migrated Social History Migrated Social History Alcohol Intake: Moderate 08/31/2021,Tobacco Years: Never smoker 06/20/2018 Plan Of Treatment No Information Insurance Providers Payer Name Payer Address Payer Phone Subscriber Number Group Number Insured Name Patient Relationship to Insured Coverage Start Date Coverage End Date [employer] - Gold Plus Medicare Replacemen t/Advantag e - [place]mo [address] [address] [place] [address] [id number] HOWIE DOHERTY Self - patient is the insured Medicaid-I l Medicaid [address] [address] [place] [address] [id number] HOWIE DOHERTY Self - patient is the insured Medical (General) History Surgical History Surgery Date(Month/Year) Appendectomy (89709) Tonsilectomy/adenoids Removal of gallbladder (43063) Sinus surgery
--- OUTSIDE RECORDS SUMMARY | 2025-04-03 02:12 | XMS_ITS | Encounter Summary ---
Author Organization [facility] Address [facility] [place] [address] Care Team Providers Care Data Modeling Architect Name Role Phone Areli Alarcon MD Primary Care Provider Encounter Details Date Type Department Care Team (Late st Contact Info) Description 08/19/2017 Abstract [facility] CONVERSION [address] [place] [address] , Generic Conversion, Social History Tobacco Use Types Packs/Day Years Used Date Smoking Tobacco: Never Assessed Sex and Gender Information Value Date Recorded Sex Assigned at Male 08/23/2024 9:20 AM CDT Legal Sex Male 7:48 PM CDT Gender Identity Not on file Sexual Orientation Not on file documented as of this encounter Plan of Treatment Not on file documented as of this encounter Visit Diagnoses Not on filedocumented in this encounter Care Teams Data Modeling Architect Relationship Specialty Start Date End Date Areli Alarcon MD [address] [address] PCP - General INTERNAL MEDICINE 08/23/24 documented as of this encounter
--- OUTSIDE RECORDS SUMMARY | 2025-04-03 02:12 | XMS_ITS | Encounter Summary ---
Author Organization [facility] Address [address] [place] [address] Phone Care Team Providers Care Reserve Officer Name Role Phone Valdemar Alcantara Maira FIELDS Unavailable Hernandez Altman MD Primary Care Provider [phone] Doug Sanford Unavailable Rose Mckeon MD Unavailable [phone] Dilia Hansen MD Unavailable [phone] Marjorie Clark MD Unavailable Kavon Renee DPM Unavailable Unavailable Fer Chauhan MD Unavailable Blaise Peterson MD Unavailable [phone] Clayton Iyer PAC Unavailable [phone] Juliana Smith Unavailable [phone] Areli Alarcon MD Primary Care Provider Reason for Visit * Reason Comments Medication Refill Encounter Details Date Type Department Care Team (Late st Contact Info) Description 06/27/2023 Refill [facility] - [place] [address] [place] [address] Marjorie Clark MD #[address] [address] Medication Refill Social History Tobacco Use Types [...] Miscellaneous Notes * Telephone Encounter - Gela Ortiz RN - 06/28/2023 8:50 AM SUPERVISOR CONTACT LENS Requested Prescriptions Pending Prescriptions Disp Refills ??? testosterone cypionate (DEPO-TESTOSTERONE) 200 MG/ML Solution [Pharmacy Med Name: TESTOSTERONE CYP 200 MG/ML] 6 mL 0 Sig: INJECT 0.5 ML BY INTRAMUSCULAR ROUTE EVERY 7 DAYS (ON THURSDAYS) Next appt: 08/24/2023 RVISOR CONTACT LENS documented in this encounter Plan of Treatment Upcoming Encounters Date Type Department Care Team (Late st Contact Info) Description 05/22/2025 8:45 AM SUPERVISOR CONTACT LENS Office Visit [facility] - Endocrinology - [place] [address] [place] [address] Marjorie Clark MD #[address] [address] 06/10/2025 8:30 AM SUPERVISOR CONTACT LENS Office Visit [facility] - Neurology [facility] [address] [place] [phone] Graciela Todd APRN, MAILING MACHINE OPERATOR [address] [place] [address] documented as of this encounter Visit Diagnoses Diagnosis Male hypogonadism Other testicular hypofunction documented in this encounter Additional Health Concerns Infection Onset Date Last Indicated Resolved Time C. difficile Rule-Out 08/11/2023 08/11/20232023 12:32 PM SUPERVISOR CONTACT LENS Assessment Noted Time PHQ-9 Depression Total Score: 0 06/08/19 9:26 AM SUPERVISOR CONTACT LENS documented as of this encounter Care Teams Reserve Officer Relationship Specialty Start Date End Date Hernandez Altman MD [address] [place] [address] PCP - General Internal Medicine 08/27/21 12/11/24 Areli Alarcon MD [address] [place] [address] PCP - General Internal Medicine 12/12/24 Valdemar Alcantara APRN [address] [facility] [address] [place] [address] Nurse Practitioner Psychiatry 08/27/21 Doug Sanford [address] [address] Consulting Physician Endocrinology 08/27/21 Rose Mckeon MD [address] [place] [address] Consulting Physician Gastroenterology 08/27/21 Dilia Hansen MD [address] [place] [address] Consulting Physician Endocrinology 12/03/21 Marjorie Clark MD [address] [facility] [phone] Consulting Physician Endocrinology 02/21/22 Kavon Renee DPM Podiatry 12/15/21 Fer Chauhan MD [address] [place] [address] Consulting Physician Neurology 12/05/22 Blaise Peterson MD #[address] [address] Consulting Physician Urology 01/03/23 Clayton Iyer PAC #[address] [address] Physician Vice President Payment Physician Vice President Payment 01/24/24 Juliana Smith [address] [place] [address] Nurse Practitioner Neurology 02/14/24 documented as of this encounter
--- OUTSIDE RECORDS SUMMARY | 2025-04-03 02:12 | XMS_ITS | Encounter Summary ---
Author Organization [facility] Address [address] [place] [address] Phone Care Team Providers Care Spinning Doffer Name Role Phone AlcantaraValdemar APRN Unavailable Doug Sanford Unavailable Rose Mcekon MD Unavailable [phone] Dilia Hansen MD Unavailable [phone] Marjorie Clark MD Unavailable Kavon Renee DPM Unavailable Unavailable Fer Chauhan MD Unavailable [phone] Blaise Peterson MD Unavailable [phone] Clayton Iyer PAC Unavailable Juliana Smith Unavailable [phone] Areli Alarcon MD Primary Care Provider Encounter Details Date Type Department Care Team (Late st Contact Info) Description 03/24/2025 Results Follow-Up [facility] - Neurology - [place] [address] [place] [id number] Graciela Todd, TRAIN BRAKER, [place] [address] [place] [address] VITAMIN B12 Social History Tobacco Use Types Packs/Day Years Used Date Smoking Tobacco: Never Smokeless Tobacco: Never Alcohol Use Standard Drinks/Week Comments Yes 3 (1 standard drink = 0.6 oz pur e alcohol) [facility] Utilities Answer Date Recorded In the past 12 months has th e electric, gas, oil, or water company [...] declined 09/06/2023 How often do you attend islam or druze serv ices? Patient declined 09/06/2023 Do you belong to any clubs o r organizations such as islam groups, unions, fraternal or athletic groups, or [...] Recorded Total Score - Questions 1-9 0 0 09/2023 [facility] [place] of Occupat ional Health - Occupational Stress [...] place to sleep or slept in a usp (including now)? Patient declined 09/06/2023 Sexually Active Control Partners Comments Yes Sex and Gender Information Value Date Recorded Sex Assigned at Not on file Legal Sex Male 2:12 AM CDT Gender Identity Not on file Sexual Orientation Not on file documented as of this encounter Progress Notes * Graciela Todd APRN, CNS - 03/24/2025 1:01 PM CDT Please let Mitch know that his b12 is at the low end of normal. He should take oral B12 1000 micrograms daily. documented in this encounter Plan of Treatment Upcoming Encounters Date Type Department Care Team (Late st Contact Info) Description 05/22/2025 8:45 AM EMAIL MARKETING SPECIALIST [facility] - Endocrinology - [place] [address] [place] [address] Marjorie Clark MD #[address] [address] 06/10/2025 8:30 AM EMAIL MARKETING SPECIALIST Office Visit [facility] - Neurology [facility] [address] [place] [address] Graciela Todd, TRAIN BRAKER, [place] [address] [place] [address] documented as of this encounter Visit Diagnoses Not on filedocumented in this encounter Additional Health Concerns Assessment Noted Time PHQ-9 Depression Total Score: 0 06/08/19 24 9:26 AM EMAIL MARKETING SPECIALIST documented as of this encounter Care Teams Spinning Doffer Relationship Specialty Start Date End Date Areli Alarcon MD [address] [place] [address] PCP - General Internal Medicine 12/12/24 Valdemar Alcantara, TRAIN BRAKER [address] [place] [address] Nurse Practitioner Psychiatry 08/27/21 Doug Sanford [address] [address] Consulting Physician Endocrinology 08/27/21 Rose Mckeon MD #2 [place] [address] Consulting Physician Gastroenterology 08/27/21 Dilia Hansen MD #2 [place] [address] Consulting Physician Endocrinology 12/03/21 Marjorie Clark MD #2 [facility] [address] [place] [address] Consulting Physician Endocrinology 02/21/22 Kavon Renee DPAlexa Podiatry 12/15/21 Fer Chauhan MD [address] [facility] [place] [address] Consulting Physician Neurology 12/05/22 Balise Peterson MD #2 [facility] [address] [place] [address] Consulting Physician Urology 01/03/23 Clayton Iyer PAC #2 [facility] [address] [place] [address] Physician Hoisting Machine Operator Physician Hoisting Machine Operator 01/24/24 Juliana Smith [address] [facility] [address] [place], [place] [id number] Nurse Practitioner Neurology 02/14/24 documented as of this encounter
--- OUTSIDE RECORDS SUMMARY | 2025-04-03 02:12 | XMS_ITS | Encounter Summary ---
Author Organization [facility] Address [address] [place] [address] Phone Care Team Providers Care Seaman Officer Name Role Phone Valdemar Alcantara Maira FIELDS Unavailable [phone] Hernandez Altman MD Primary Care Provider [phone] Doug Sanford Unavailable Rose Mckeon MD Unavailable [phone] Dilia Hansen MD Unavailable [phone] Marjorie Clark MD Unavailable Kavon Renee DPM Unavailable Unavailable Fer Chauhan MD Unavailable Blaise Peterson MD Unavailable [phone] Clayton Iyer PAC Unavailable [phone] Juliana Smith Unavailable [phone] Areli Alarcon MD Primary Care Provider Reason for Visit * Reason Comments Medication Refill Encounter Details Date Type Department Care Team (Late st Contact Info) Description 02/22/2022 Refill [facility] - Gastroenterology [facility] [address] [place] [address] Rose Mckeon MD [address] [place] [address] Medication Refill Social History Tobacco Use Types Packs/Day Years Used Date Smoking Tobacco: Never Smokeless Tobacco: Never Alcohol Use Standard Drinks/Week Comments Yes 0 (1 standard drink = 0.6 oz pur e alcohol) 3-4x weekly PHQ-2 Answer Date Recorded Total Score - Questions 1-9 0 08/04 Sexually Active Control Partners Comments Yes Sex and Gender Information Value Date Recorded Sex Assigned at Not on file Legal Sex Male 2:12 AM CDT Gender Identity Not on file Sexual Orientation Not on file COVID-19 Exposure Response Date Recorded In the last 10 days, have yo u been in contact with someone who was confirmed or suspected to have Coronavirus/COVID-19? No / Unsure 02/23/2022 10:10 AM CDT documented as of this encounter Miscellaneous Notes * Telephone Encounter - Gela Pedro RN - 02/22/2022 1:30 PM CDT Pharmacy requesting refill of: Requested Prescriptions Pending Prescriptions Disp Refills ??? colestipol (COLESTID) 1 GM Tablet [Pharmacy Med Name: COLESTIPOL HCL 1 GM TABLET] 180 Tablet 1 Sig: TAKE 1 TABLET BY MOUTH TWICE A DAY Last fill: 07/28/2021 Patients last OV with GI: 05/06/2021 Next Office Visit with GI: None scheduled. Per chart review, patient no showed appt on 09/09/2021. Colestipol order pended, please review. documented in this encounter Plan of Treatment Upcoming Encounters Date Type Department Care Team (Late st Contact Info) Description 05/22/2025 8:45 AM VIDEO ENGINEER Office Visit [facility] - Endocrinology - [place] [address] [place] [address] Marjorie Clark MD [address] [address] 06/10/2025 8:30 AM VIDEO ENGINEER Office Visit [facility] - Neurology - [place] [address] [place] [address] Graciela Todd APRN, DATA ENTRY #[address] [facility] [place] [address] documented as of this encounter Visit Diagnoses Diagnosis Chronic diarrhea Diarrhea documented in this encounter Additional Health Concerns Infection Onset Date Last Indicated Resolved Time C. difficile Rule-Out 03/22/2022 03/22/20222021 1:25 PM CDT C. difficile Rule-Out 08/11/2023 08/11/20232023 12:32 PM VIDEO ENGINEER Assessment Noted Time PHQ-9 Depression Total Score: 0 10/04/19 2:42 PM CDT documented as of this encounter Care Teams Seaman Officer Relationship Specialty Start Date End Date Hernandez Altman MD [address] [place] [address] PCP - General Internal Medicine 08/27/21 12/11/24 Areli Alarcon MD [address] [place] [address] PCP - General Internal Medicine 12/12/24 Valdemar Alcantara, SCIENTIFIC RECRUITER [address] [place] [address] Nurse Practitioner Psychiatry 08/27/21 Doug Sanford [address] [address] Consulting Physician Endocrinology 08/27/21 Rose Mckeon MD #[address] [place] [address] Consulting Physician Gastroenterology 08/27/21 Dilia Hansen MD #[address] [place] [address] Consulting Physician Endocrinology 12/03/21 Marjorie Clark MD #[address] [address] Consulting Physician Endocrinology 02/21/22 Kavon Renee DPM Podiatry 12/15/21 Fer Chauhan MD [address] [facility] [place] [address] Consulting Physician Neurology 12/05/22 Blaise Peterson MD #[address] [address] Consulting Physician Urology 01/03/23 Clayton Iyer PAC #[address] [address] Physician Geodetic Survey Director Physician Geodetic Survey Director 01/24/24 Juliana Smith [address] [place] [address] Nurse Practitioner Neurology 02/14/24 documented as of this encounter
--- OUTSIDE RECORDS SUMMARY | 2025-04-03 02:12 | XMS_ITS | Encounter Summary ---
Author Organization [facility] Address [address] [place] [address] Phone Care Team Providers Care Lithographed Plate Inspector Name Role Phone Valdemar Alcantara Maira FIELDS Unavailable [phone] Hernandez Altman MD Primary Care Provider [phone] Doug Sanford Unavailable Rose Mckeon MD Unavailable [phone] Dilia Hansen MD Unavailable [phone] Marjorie Clark MD Unavailable Kavon Renee DPM Unavailable Unavailable Fer Chauhan MD Unavailable Blaise Peterson MD Unavailable [phone] Clayton Iyer PAC Unavailable [phone] Juliana Smith Unavailable [phone] Areli Alarcon MD Primary Care Provider Reason for Visit * Reason Comments Medication Refill Encounter Details Date Type Department Care Team (Late st Contact Info) Description 06/19/2022 Refill [facility] - Gastroenterology [facility] #2 [place] [id number] Rose Mckeon MD #2 [place] [address] Medication Refill Social History Tobacco Use Types [...] suspected to have Coronavirus/COVID-19? No / Unsure 06/17/2022 9:02 AM OLDER WORKER SPECIALIST documented as of this encounter Miscellaneous Notes * Telephone Encounter - Corrine Caballero RN - 06/20/2022 8:06 AM CST Medication failed the protocol, provider to review and approve the medication order if appropriate. Requested Prescriptions Pending Prescriptions Disp Refills colestipol (COLESTID) 1 GM Tablet [Pharmacy Med Name: COLESTIPOL HCL 1 GM TABLET] 180 Tablet 1 Sig: TAKE 1 TABLET BY MOUTH TWICE A DAY Bile Acid Sequestrants Protocol Failed - 06/19/2022 11:16 AM Failed - Visit with relevant provider in past year or upcoming 90 days Recent Visits Date Type Provider Dept 06/07/22 Office Visit Hernandez Altman MD [facility] 03/22/22 Office Visit Blanca Adler APRN, [facility] 12/03/21 Office Visit [facility] 08/27/21 Office Visit Hernandez Altman MD [facility] Showing recent visits within past 365 days and meeting all other requirements Future Appointments No visits were found meeting these conditions. Showing future appointments within next 90 days and meeting all other requirements Passed - Lipid panel in past year LDL Date Value Ref Range Status 12/07/2021 101 5 - 130 mg/dL Final HDL CHOLESTEROL Date Value Ref Range Status 12/07/2021 36.7 (L) >40 mg/dL Final CHOLESTEROL Date Value Ref Range Status 12/07/2021 166 <=200 mg/dL Final TRIGLYCERIDES Date Value Ref Range Status 12/07/2021 140 <150 mg/dL Final VLDL Date Value Ref Range Status 12/07/2021 28 5 - 55 mg/dL Final CHOL/HDL RATIO Date Value Ref Range Status 12/07/2021 4.5 (H) 0.0 - 4.4 Final NON-HDL CHOLESTEROL Date Value Ref Range Status 12/07/2021 129.3 <130 mg/dL Final R WORKER SPECIALIST documented in this encounter Plan of Treatment Upcoming Encounters Date Type Department Care Team (Late st Contact Info) Description 05/22/2025 8:45 AM OLDER WORKER SPECIALIST Office Visit [facility] - Endocrinology - [place] #2 [place] [address] Marjorie Clark MD #[address] [address] 06/10/2025 8:30 AM OLDER WORKER SPECIALIST Office Visit [facility] - Neurology - [place] #[address] [place] [address] Graciela Todd APRN, POLE INCISOR OPERATOR #2 [place] [address] documented as of this encounter Visit Diagnoses Diagnosis Chronic diarrhea Diarrhea documented in this encounter Additional Health Concerns Infection Onset Date Last Indicated Resolved Time C. difficile Rule-Out 08/11/2023 08/11/20232023 12:32 PM OLDER WORKER SPECIALIST Assessment Noted Time PHQ-9 Depression Total Score: 0 10/04/19 18 2:42 PM CDT documented as of this encounter Care Teams Lithographed Plate Inspector Relationship Specialty Start Date End Date Hernandez Altman MD [address] [place] [address] PCP - General Internal Medicine 08/27/21 12/11/24 Areli Alarcon MD [address] [place] [address] PCP - General Internal Medicine 12/12/24 Valdemar Alcantara APRN [address] [place] [address] Nurse Practitioner Psychiatry 08/27/21 [address] [facility] [address] [place] [address] Consulting Physician Endocrinology 08/27/21 Rose Mckeon MD #2 [place] [address] Consulting Physician Gastroenterology 08/27/21 Dilia Hansen MD #2 [place] [address] Consulting Physician Endocrinology 12/03/21 Marjorie Clark MD #2 [facility] [address] [place] [address] Consulting Physician Endocrinology 02/21/22 Kavon Renee DPM Podiatry 12/15/21 Fer Chauhan MD [address] [facility] [place] [address] Consulting Physician Neurology 12/05/22 Blaise Peterson MD #2 [facility] [address] [place] [address] Consulting Physician Urology 01/03/23 Clayton Iyer PAC #2 [facility], [address] [address] Physician Photonic Laboratory Technician Physician Photonic Laboratory Technician 01/24/24 Juliana Smith [address] [address] Nurse Practitioner Neurology 02/14/24 documented as of this encounter
--- OUTSIDE RECORDS SUMMARY | 2025-04-03 02:12 | XMS_ITS | Clinical Summary ---
Author Organization [facility] Address [address] [place] [address] Care Team Providers Care Residential Energy Auditor Name Role Phone Areli Alarcon MD Primary Care Provider Allergies Active Allergy Reactions Criticality Noted Date Comments Ibuprofen Nausea Only Low 09/15/2023 Nabumetone Eyes Water & Itch,Hallucinations,Oth er (see comment) Medium 05/25/2010 Seeing Red dots Seeing Red dots Sulfa Antibiotics Other (see comment) Sweats Medications allopurinol (ZYLOPRIM) 100 MG tablet Take 1 tablet (100 mg total) by mouth daily. Active amLODIPine (NORVASC) 10 MG tablet Take 1 tablet (10 mg total) by mouth daily. Active Syringe, Disposable, (B-D SYRINGE LUER-KRISTEN 3CC) 3 ML Misc Active colestipol (COLESTID) 1 g tablet Take 2 tablets (2 g total) by mouth 2 (two) times daily. Active rosuvastatin (CRESTOR) 40 MG tablet Take 1 tablet (40 mg total) by mouth daily. Active DULoxetine (CYMBALTA) 60 MG capsule Take 1 capsule (60 mg total) by mouth daily. Active SUMAtriptan (IMITREX) 50 MG tablet Take 1 tablet (50 mg total) by mouth 2 (two) times daily as needed for Migraine. Max of 4 tablets (200 mg) in 24 hours. Active gabapentin (NEURONTIN) 300 MG capsule Take 1 capsule (300 mg total) by mouth 3 (three) times daily. Active famotidine (PEPCID) 40 MG tablet Take 1 tablet (40 mg total) by mouth 2 (two) times daily as needed. Active traZODone (DESYREL) 100 MG tablet Take 1 tablet (100 mg total) by mouth nightly at bedtime. Active pantoprazole EC (PROTONIX) 40 MG tablet Take 1 tablet (40 mg total) by mouth 2 (two) times a day. Active propranolol LA (INDERAL LA) 120 MG 24 hr capsule Take 1 capsule (120 mg total) by mouth daily. Active testosterone cypionate (DEPO TESTOSTERONE) 200 MG/ML injection Inject 1 mL (200 mg total) into the muscle once a week. Sundays Active busPIRone (BUSPAR) 30 MG tablet Take 1 tablet (30 mg total) by mouth 2 (two) times daily. Active Active Problems Problem Noted Date Diagnosed Date Carpal tunnel syndrome on left 09/05/2024 Trigger ring finger of left hand 09/05/2024 Chronic diarrhea 08/21/2024 Eosinophilic esophagitis 07/02/2024 Eosinophilic enteritis 07/02/2024 Pain in joint of right shoulder 05/21/2024 Arthritis of carpometacarpal (CMC) joint of left thumb 04/16/2024 Acquired absence of kidney 04/10/2024 Chronic renal failure syndrome 04/10/2024 Gastroesophageal reflux disease 04/10/2024 Migraine 02/21/2024 Moderate recurrent major depression 02/21/2024 Hiatal hernia 02/20/2024 Status post laparoscopic sleeve gastrectomy 02/03 Onychomycosis of toenail 11/16/2023 Irritable bowel syndrome 09/28/2023 Small intestinal bacterial overgrowth (SIBO) Arthritis 09/07/2023 ETOH abuse 09/07/2023 Hyperlipidemia 09/07/2023 YELITZA on CPAP 09/07/2023 Overview (09/20/2024): NO LONGER NEEDED PER DOCTOR SINCE 2020 Seasonal allergies 09/07/2023 Anxiety and depression 08/27/2021 RLS (restless legs syndrome) 08/27/2021 Chronic hepatitis C without hepatic coma 020 Pituitary adenoma 05/31/2019 Crohn's disease of colon without complication Hyperglycemia 10/02/2018 Secondary male hypogonadism 10/01/2018 Fibromyalgia 06/05/2018 Neurogenic bladder 11/02/2016 Gout 03/02/2016 Overview (09/20/2024): Gout Gastroesophageal reflux disease 09/11/2015 Insomnia 09/11/2015 Chronic pain syndrome 06/18/2015 Primary hypertension 06/18/2015 Family History Medical History Relation Comments Arthritis Maternal Grandmother Blood Disease Maternal Grandmother Heart Disease Maternal Grandmother Hypertension Maternal Grandmother Diabetes Paternal Grandfather Heart Disease Paternal Grandfather Diabetes Paternal Grandmother Hypertension Paternal Grandmother cerebrovascular Paternal Grandmother Relation Status Comments Maternal Grandmother Paternal Grandfather Paternal Grandmother Social History Tobacco Use Types Packs/Day Years Used Date Smoking Tobacco: Never Smokeless Tobacco: Never Tobacco Cessation:Counseling Given: No Alcohol Use Standard Drinks/Week Comments Yes 0 (1 standard drink = 0.6 oz pur e alcohol) occasional PHQ-2 Answer Date Recorded Patient Health Questionnaire-2 Score 2 08/28/2024 Sex and Gender Information Value Date Recorded Sex Assigned at Male 08/23/2024 9:20 AM CDT Legal Sex Male 7:48 PM CDT Gender Identity Not on file Sexual Orientation Not on file Last Filed Vital Signs Vital Sign Reading Time Taken Comments Blood Pressure 108/74 09/20/2024 8:51 AM CDT Pulse 63 09/20/2024 8:51 AM CDT Temperature 36.7 C (98 F) 09/20/2024 8:41 AM CDT Respiratory Rate 16 09/13/2024 11:2 2 AM CDT Oxygen Saturation 94% 09/13/2024 11: 22 AM CDT Inhaled Oxygen Concentration - - Weight 108.2 kg (238 lb 9.6 oz) 09/20/2024 8:41 AM CDT Height 179.1 cm (5' 10.5) 09/20/2024 8:41 AM CD T Body Mass Index 33.75 09/20/2024 8:41 AM CDT Plan of Treatment Health Maintenance Due Date Last Done Comments Colorectal Cancer Screening Colonoscopy (10 Years) 1974 Annual Physical 1977 Hepatitis A Vaccines (1 of 2 - Risk 2-dose series) 1993 Hepatitis B Vaccines (1 of 3 - 19+ 3-dose series) 1993 Zoster Vaccines (1 of 2) 2024 COVID-19 Vaccine ( - 2024- season) 2025 06/07/2022, 03/27/2021, 02/13/2021 Influenza Adult (#1) 2025 05/22/2024, 03/21/2023, 03/22/2022, Additional history exists DTaP, Tdap and Td Vaccines (4 - Td or Tdap) 03/06/2029 03/06/2019, 07/26/2018, 08/03/2015, Additional history exists Hepatitis C Completed 11/26/2019, 10/23/2018 Pneumococcal Vaccine: 50+ Years Completed 06/07/2022, 06/05/2005 PHQ-2 (Physician [place]) Completed 08/28/2024 Meningococcal B Vaccine Aged Out No l onger eligible based on patient's age to complete this topic Meningococcal Vaccine Aged Out No aparna nicho eligible based on patient's age to complete this topic RSV Immunizations Under 20 Months Aged Out No longer eligible based on patient's age to complete this topic Insurance [facility] MEDICARE MEDICAID Care Teams Residential Energy Auditor Relationship Specialty Start Date End Date Areli Alarcon MD [address] [id number] PCP - General INTERNAL MEDICINE 08/23/24
--- OUTSIDE RECORDS SUMMARY | 2025-04-03 02:12 | XMS_ITS | Encounter Summary ---
Author Organization [facility] Address [address] [place] [address] Phone Care Team Providers Care Sales Process Manager Name Role Phone Valdemar Alcantara Maira FIELDS Unavailable [phone] Hernandez Altman MD Primary Care Provider [phone] Doug Sanford Unavailable Rose Mckeon MD Unavailable [phone] Dilia Hansen MD Unavailable [phone] Marjorie Clark MD Unavailable Kavon Renee DPM Unavailable Unavailable Fer Chauhan MD Unavailable Blaise Peterson MD Unavailable [phone] Clayton Iyer PAC Unavailable [phone] Juliana Smith Unavailable [phone] Areli Alarcon MD Primary Care Provider Reason for Visit * Reason Comments Medication Refill Encounter Details Date Type Department Care Team (Late st Contact Info) Description 12/05/2022 Refill [facility] - Endocrinology - [address] [place] [address] Marjorie Clark MD [address] [phone] Medication Refill Social History Tobacco Use Types Packs/Day Years Used Date Smoking Tobacco: Never Smokeless Tobacco: Never Alcohol Use Standard Drinks/Week Comments Yes 7 (1 standard drink = 0.6 oz pur e alcohol) PHQ-2 Answer Date Recorded Total Score - Questions 1-9 3 08/2022 Sexually Active Control Partners Comments Yes Sex [...] suspected to have Coronavirus/COVID-19? No / Unsure 12/05/2022 9:56 AM CDT documented as of this encounter Functional Status * Question Answer Date of Assessment Author Little interest or pleasure in doing things Not at all 12/05/2022 10:00 AM CDT Rosana Olvera RMA Feeling down, depressed, or hopeless Not at all 12/05/2022 10:00 AM CDT Rosana Olvera RMA * Over the past 2 weeks, how often have you been bothered by any of the following problems? Question Answer Date of Assessment Author Patient Health Questionnaire -2 Score 0 12/05/2022 10:00 AM CDT Rosana Olvera RMA documented as of this encounter Miscellaneous Notes * Telephone Encounter - Gela Ortiz RN - 12/05/2022 4:10 PM CDT Requested Prescriptions Pending Prescriptions Disp Refills ??? testosterone cypionate (DEPO-TESTOSTERONE) 200 MG/ML Solution [Pharmacy Med Name: TESTOSTERONE CYP 200 MG/ML] 6 mL 0 Si.5 ML BY INTRAMUSCULAR ROUTE EVERY 7 DAYS. MONDAY Next appt: 02/26/2023 documented in this encounter Plan of Treatment Upcoming Encounters Date Type Department Care Team (Late st Contact Info) Description 05/22/2025 8:45 AM REEL SYSTEM OPERATOR Office Visit [facility] - Endocrin[facility] [address] [place] [address] Marjorie Clark MD [address] [phone] 06/10/2025 8:30 AM REEL SYSTEM OPERATOR [facility] [address] [place] [phone] Graciela Todd, WATER HAULER, MANAGER [employer] [address] [place] [address] documented as of this encounter Visit Diagnoses Diagnosis Male hypogonadism Other testicular hypofunction documented in this encounter Additional Health Concerns Infection Onset Date Last Indicated Resolved Time C. difficile Rule-Out 08/11/2023 08/11/20232023 12:32 PM REEL SYSTEM OPERATOR Assessment Noted Time PHQ-9 Depression Total Score: 3 12/06/19 23 10:00 AM CDT documented as of this encounter Care Teams Sales Process Manager Relationship Specialty Start Date End Date Hernandez Altman MD [address] [place] [address] PCP - General Internal Medicine 08/27/21 12/11/24 Areli Alarcon MD [address] [place] [address] PCP - General Internal Medicine 12/12/24 Valdemar Alcantara, WATER HAULER [address] [place] [address] Nurse Practitioner Psychiatry 08/27/21 Doug Sanford [address] [address] Consulting Physician Endocrinology 08/27/21 Rose Mckeon MD [address] [place] [address] Consulting Physician Gastroenterology 08/27/21 Dilia Hansen MD [address] [place] [address] Consulting Physician Endocrinology 12/03/21 Marjorie Clark MD [address] [id number] Consulting Physician Endocrinology 02/21/22 Kavon Renee, DPM Podiatry 12/15/21 Fer Chauhan MD [address] [place] [address] Consulting Physician Neurology 12/05/22 Blaise Peterson MD [address] [address] Consulting Physician Urology 01/03/23 Clayton Iyer PAC [address] [address] Physician Mallet Cutter Physician Mallet Cutter 01/24/24 Juliana Smith [address] [place], [place] [id number] Nurse Practitioner Neurology 02/14/24 documented as of this encounter
--- OUTSIDE RECORDS SUMMARY | 2025-04-03 02:12 | XMS_ITS | Data Portability ---
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 TAKE 1 TABLET BY MOUTH TWICE A DAY NEEDED FOR 15 DAYS 12/04 completed Not Available Not Available Not Available oxycodone-a cetaminophe n 5 mg-325 mg tablet TAKE 1 TABLET BY MOUTH EVERY 4 HOURS NEEDED FOR SEVERE PAIN. 02/07 completed Not Available Not Available Not Available Celebrex 100 mg capsule Take 1 capsule every day by oral route. 02/05 completed Not Available Not Available Not Available trazodone 100 mg tablet TAKE 0.5-1.5 TABLET AT BEDTIME NEEDED FOR SLEEP active Not Available Not Available No t Available dicyclomine 20 mg tablet TAKE 1 TABLET (20 MG) BY MOUTH 3 TIMES DAILY NEEDED FOR PAIN. 02/20 completed Not Available Not Available Not Available Kenalog 10 mg/mL suspension for injection Take 10 mg by injection route. 05/22 completed [facility]: [phone] Not Available Not Available Not Available amlodipine 10 mg tablet TAKE 1 TABLET BY MOUTH EVERY DAY active Not Available Not Available No t Available cephalexin 500 mg capsule TAKE 1 CAPSULE BY MOUTH TWICE A DAY FOR 10 DAYS 05/07 completed Not Available Not Available Not Available pantoprazol e 40 mg tablet,sujatha yed release TAKE 1 TABLET BY MOUTH EVERY DAY 02/05 completed Not Available Not Available Not Available buspirone 30 mg tablet TAKE 1 TABLET BY MOUTH TWICE A DAY DIRECTED active Not Available Not Available No t Available buspirone 10 mg tablet TAKE 1 TABLET BY MOUTH TWICE A DAY 05/07 completed Not Available Not Available Not Available propranolol ER 80 mg capsule,24 hr,extended release TAKE 1 CAPSULE BY MOUTH EVERY DAY 02/07 completed Not Available Not Available Not Available gabapentin 300 mg capsule TAKE 2 CAPSULES BY MOUTH TWICE A DAY active Not Available Not Available No t Available cephalexin 500 mg tablet Take 1 tablet every 6 hours by oral route. 05/07 completed Not Available Not Available Not Available propranolol ER 120 mg capsule,24 hr,extended release TAKE 2 CAPSULES BY MOUTH EVERY DAY active Not Available Not Available No t Available testosteron e cypionate 200 mg/mL intramuscul ar oil 0.5 ML BY INTRAMUSC ULAR ROUTE ONCE A WEEK. active Not Available Not Available No t Available zolpidem 10 mg tablet TAKE 1 TABLET BY MOUTH EVERYDAY AT BEDTIME 05/22 completed Not Available Not Available Not Available methylpredn isolone 4 mg tablets in a dose pack TAKE 6 TABLETS ON DAY 1 DIRECTED ON PACKAGE AND DECREASE BY 1 TAB EACH DAY FOR A TOTAL OF 6 DAYS 02/07 completed Not Available Not Available Not Available BD Luer-Hasmukh Syringe 3 mL 21 gauge x 1 1/2 USE 1 NEEDLE EVERY 7 DAYS 05/07 completed Not Available Not Available Not Available ondansetron 4 mg disintegrat ing tablet TAKE 1 TABLET BY MOUTH EVERY 6 HOURS NEEDED FOR NAUSEA -1ST LINE active Not Available Not Available No t Available colestipol 1 gram tablet TAKE 1 TABLET (1 GRAM) BY MOUTH 2 TIMES DAILY. active Not Available Not Available No t Available BD Luer-Hasmukh Syringe 3 mL 21 gauge x 1 USE 1 NEEDLE BY INTRAMUSC ULAR ROUTE EVERY 7 DAYS. active Not Available Not Available No t Available buspirone 15 mg tablet TAKE 1 TABLET TWICE A DAY BY ORAL ROUTE DIRECTED FOR 30 DAYS, FOR ANXIETY. 05/22 completed Not Available Not Available Not Available rosuvastati n 40 mg tablet TAKE 1 TABLET BY MOUTH EVERY DAY 2024 active Not Available Not Available Not Avai lable duloxetine 60 mg capsule,del ayed release TAKE 1 CAPSULE BY MOUTH EVERY DAY IN THE MORNING FOR 90 DAYS active Not Available Not Available No t Available aripiprazol e 2 mg tablet TAKE 1 TABLET BY MOUTH EVERY DAY AT BEDTIME FOR 30 DAYS active Not Available Not Available No t Available quetiapine 50 mg tablet TAKE 1 TABLET BY MOUTH EVERYDAY AT BEDTIME 02/07 completed Not Available Not Available Not Available mesalamine 1.2 gram tablet,sujatha yed release TAKE 2 TABLETS BY MOUTH EVERY DAY 02/07 completed Not Available Not Available Not Available Xifaxan 550 mg tablet TAKE 1 TABLET BY MOUTH 3 TIMES DAILY FOR 14 DAYS. 02/07 completed Not Available Not Available Not Available sodium,pota ssium,mag sulfates 17.5 gram-3.13 gram-1.6 gram oral soln PLEASE SEE ATTACHED FOR DETAILED DIRECTION S 10/23 completed Not Available Not Available Not Available Qulipta 60 mg tablet TAKE 1 TABLET BY MOUTH NIGHTLY. INDICATIO NS: MIGRAINE HEADACHE active Not Available Not Available No t Available Paxlovid 300 mg (150 mg x 2)-100 mg tablets in a dose pack TAKE DIRECTED 05/07 completed Not Available Not Available Not Available Vitals Date Recorded Body height Body mass index (BMI) Body weight Pain severity - 0-10 verbal numeric rating [Score] - Reported Provider Name and Address Organization Details Last Updated DateTime 10/30/2024 182.88 cm 31.9 kg/m2 590592.21 g 6 [place] Gonzalez [facility] 10/30/2024 10:16:02 Date Recorded Body height Body mass index (BMI) Body weight Body temperature Heart rate Oxygen saturation Oxygen saturation in Arterial blood by Pulse oximetry Pain severity - 0-10 verbal numeric rating [Score] - Reported Systolic And Diastolic Provider Name and Address Organization Details Last Updated DateTime 5 182.88 cm 32.5 kg/m2 261004. 37 g 97.1 [degF] 67 /min 96 % 96 % 6 122/82 mm[Hg] Rosalie Raya MA 71lbs 5 10:21:34 Date Recorded Body height Body mass index (BMI) Body weight Provider Name and Address Organization Details Last Updated DateTime 12/25/2024 180.34 cm 32.8 kg/m2 588021.21 g [place] Gonzalez [facility] 12/25/2024 10:52:05 Date Recorded Body height Body mass index (BMI) Body weight Body temperature Heart rate Oxygen saturation Oxygen saturation in Arterial blood by Pulse oximetry Pain severity - 0-10 verbal numeric rating [Score] - Reported Systolic And Diastolic Provider Name and Address Organization Details Last Updated DateTime 5 182.88 cm 32.4 kg/m2 775977. 58 g 97.8 [degF] 66 /min 96 % 96 % 6 124/80 mm[Hg] Rosalie Raya MA 71lbs 5 09:23:38 Date Recorded Body height Body mass index (BMI) Body weight Provider Name and Address Organization Details Last Updated DateTime 02/05/2025 182.88 cm 31.2 kg/m2 859317.25 g Edwige Doshi CNA [facility] 02/05/2025 09:33:19 Social History Question Answer Notes LastModified by Organization Details LastModified Time Tobacco Smoking Status Never Smoker Zachariah Barraza, [place] guerra, [place] [employer] [facility] 11/16/2023 09:18:11 Do You Have An Advance Directive? No [email or web address] Information not available 05/22/2024 Is Blood Transfusion Acceptable In An Emergency? Yes [email or web address] Information not available 05/22/2024 What Is Your Level Of Caffeine Consumption? Heavy Information not available 02/21/2024 In The 14 Days Before Symptom Onset, Have You Had Close Contact With A Laboratory-confi rmed COVID-19 While That Case Was Ill? No Information not available 02/21/2024 In The 14 Days Before Symptom Onset, Have You Had Close Contact With A Person Who Is Under Investigation For COVID-19 While That Person Was Ill? No Information not available 02/21/2024 What Type Of Diet Are You Following? REGULAR High Protein Information not available 02/21/2024 Which Illicit Or Recreational Drugs Have You Used? THC [email or web address] Information not available 05/22/2024 What Is The Highest Grade Or Level Of School You Have Completed Or The Highest Degree You Have Received? [id number] Information not available 02/21/2024 How Many Days Of Moderate To Strenuous Exercise, Like A Brisk Walk, Did You Do In The Last 7 Days? 0 [email or web address] Information not available 05/22/2024 Have There Been Any Changes To Your Family Or Social Situation? No Information not available 02/21/2024 What Is The Fluoride Status Of Your Home? Unknown Information not available 02/21/2024 Are There Any Guns Present In Your Home? No Information not available 02/21/2024 How Many Years Have You Used Illicit Or Recreational Drugs? 5 Information not available 05/22/2024 Do You Use Insect Repellent Routinely? No Information not available 02/21/2024 Where Do You Live? SingleLevelHouse Information not available 02/21/2024 Presence Of Domestic Violence No Information not available 05/22/2024 Guns Present In The Home? Yes [email or web address] Information not available 05/22/2024 Are You Able To Care For Yourself? Yes [email or web address] Information not available 05/22/2024 Are You Blind Or Do Yo Have Difficulty Seeing? No [email or web address] Information not available 05/22/2024 Are You Deaf Or Do You Have Serious Difficulty Hearing? No [email or web address] Information not available 05/22/2024 General Stress Level? High [email or web address] Information not available 05/22/2024 Live Alone Of With Others? With Others Information not available 05/22/2024 Are You Following A Low Salt Diet? No [email or web address] Information not available 05/22/2024 Do You Have A Medical Power Of Silk Winding Machine Operator? No [email or web address] Information not available 05/22/2024 What Was The Date Of Your Most Recent Tobacco Screening? 02/05/2025 [email or web address] Information not available 02/05/2025 How Many Children Do You Have? 3 [email or web address] Information not available 05/22/2024 Have You Ever Been Counseled For Unhealthy Alcohol Use? No Information not available 05/22/2024 Do You Have Any Pets? Yes Cat [email or web address] Information not available 05/22/2024 What Is Your Relationship Status? Information not available 02/21/2024 Do You Use Your Seat Belt Or Car Seat Routinely? Yes Information not available 02/21/2024 Are You Sexually Active? No [email or web address] Information not available 05/22/2024 Do You Have Smoke And Carbon Monoxide Detectors In Your Home? Yes Information not available 02/21/2024 Are You Passively Exposed To Smoke? No Information not available 02/21/2024 Are There Any Smokers In Your House? No Information not available 02/21/2024 What Types Of Sporting Activities Do You Participate In? None [email or web address] Information not available 05/22/2024 Do You Use Sunscreen Routinely? Yes Information not available 02/21/2024 Has Tobacco Cessation Counseling Been Provided? No N/a [email or web address] Information not available 05/22/2024 Have You Recently Traveled Abroad? No Information not available 02/21/2024 Have You Used IV Drugs? No [email or web address] Information not available 05/22/2024 Do You Have Any Dietary Restrictions? Yes Follows IBS Diet Information not available 02/21/2024 Sex: Unknown Functional Status Question Answer Note LastModified by Organizat ion Details LastModified Time Do you use any illicit or recreational drugs? Yes cannabis Information not available 02/21/2024 Do you or have you ever used any other forms of tobacco or nicotine? No Information not available 02/21/2024 What is your level of alcohol consumption? Occasional Information not available 02/21/2024 Are you currently employed? No Disabled [email or web address] Information not available 05/22/2024 What is your exercise level? None Information not available 05/22/2024 Mental Status Question Answer Note LastModified by Organization D etails LastModified Time Do you feel stressed (tense, restless, nervous, or anxious, or unable to sleep at night)? [id number] Information not available 02/21/2024 Family History Relationship Description Onset Age of this Age Resolved Age Notes LastModified by Organization Details LastModified Time Maternal Grandfather Diabetes mellitus [email or web address] Not available 2023 09:15:18 Maternal Grandfather Cerebrovascu lar accident [email or web address] Not available 09:15:36 Maternal Grandfather Arthritis [email or web address] Not available 09:16:06 Maternal Grandfather Hypertensive disorder [email or web address] Not available 2023 09:16:23 Maternal Grandfather Heart disease [email or web address] Not available 2023 09:16:44 Maternal Grandfather Blood coagulation disorder [email or web address] Not available 2023 09:17:49 Paternal Grandmother Diabetes mellitus [email or web address] Not available 2023 09:15:18 Paternal Grandmother Hypertensive disorder [email or web address] Not available 2023 14:11:31 Maternal Grandmother Cerebrovascu lar accident [email or web address] Not available 09:15:36 Maternal Grandmother Arthritis [email or web address] Not available 09:16:06 Maternal Grandmother Hypertensive disorder [email or web address] Not available 2023 09:16:23 Maternal Grandmother Heart disease [email or web address] Not available 2023 09:16:44 Maternal Grandmother Blood coagulation disorder Not available 2023 09:17:49 Paternal Grandfather Heart disease [email or web address] Not available 2023 14:11:15 Paternal Grandfather Hypertensive disorder [email or web address] Not available 2023 14:11:28 Paternal Grandfather Diabetes mellitus [email or web address] Not available 2023 14:11:45 Mother Complication of anesthesia [email or web address] Not available 02/05 09:35:36 Medical History Condition Response HEART DISEASE/HEART PROBLEMS Y ARTHRITIS Y HEADACHES/MIGRAINES Y URINARY/BLADDER/KIDNEY PROBLEMS Y GOUT Y DEPRESSION (INCLUDING POST ) Y HYPERTENSION Y HIGH CHOLESTEROL / HYPERLIPIDEMIA Y Immunizations Vaccine Type Date Status Note Provider Nam e and Address Organization Details Recorded Time Influenza, split virus, quadrivalent, preservative 8 completed Homa Le RMJair guerra, [facility] 05/22/2024 10:22:50 COVID-19, mRNA, LNP-S, PF, 30 mcg/0.3 mL dose 1 completed Homa Le RMJair null, [facility] 05/22/2024 10:22:50 COVID-19, mRNA, LNP-S, PF, 30 mcg/0.3 mL dose 1 completed Homa Le RMA null, [facility] 05/22/2024 10:22:50 Pneumococcal conjugate PCV20, polysaccharide POM068 conjugate, adjuvant, PF 3 completed Homa Le RMA null, [facility] 05/22/2024 10:22:50 COVID-19, mRNA, LNP-S, bivalent, PF, 30 mcg/0.3 mL dose 3 completed Homa Le RMA null, [facility] 05/22/2024 10:22:50 pneumococcal polysaccharide PPV23 6 completed Homa Le RMA null, [facility] 05/22/2024 10:22:50 Tdap 9 completed Homa [place], RMA null, [facility] 05/22/2024 10:22:50 Tdap 6 completed Homa [place], RMA null, [facility] 05/22/2024 10:22:50 Tdap 9 completed Homa [place], RMA null, [facility] 05/22/2024 10:22:50 Influenza, split virus, trivalent, preservative 3 completed Homa [place], RMA null, [facility] 05/22/2024 10:22:50 Influenza, split virus, trivalent, preservative 4 completed Homa [place], RMA null, [facility] 05/22/2024 10:22:51 Influenza, split virus, trivalent, PF 5 completed Homa [place], RMA null, [facility] 05/22/2024 10:22:51 Td (adult), 2 Lf tetanus toxoid, preservative free, adsorbed 5 completed Homa [place], RMA null, [facility] 05/22/2024 10:22:51 Influenza, split virus, quadrivalent, PF 7 completed Homa [place], RMA null, [facility] 05/22/2024 10:22:51 Influenza, split virus, quadrivalent, PF 3 completed Homa [place], RMA null, [facility] 05/22/2024 10:22:51 Influenza, split virus, quadrivalent, PF 2 completed Homa [place], RMA null, [facility] 05/22/2024 10:22:51 Influenza, split virus, quadrivalent, PF 8 completed Homa [place], RMA null, [facility] 05/22/2024 10:22:51 Influenza, split virus, trivalent, PF 4 completed Job Alarcon MD [address], [facility] [address], [place], [address], [place] - [facility] [employer] 05/24/2024 20:56:20 Past Encounters Encounter ID Performer Location Encounter Start Date Encounter Closed Date Diagnosis/Indication Diagnosis SNOMED-CT Code Diagnosis ICD10 Code Diagnosis IMO Codes Diagnosis Note [id number] Elvin Murillo DPM [facility] [address] [address] 11/16/2023 08:59:27 11/16/2023 10:39:51 Paronychia of toe of left foot 7161837323 1692992 L03.032 Onychomyco sis of toenails 602127898 B35.1 [id number] [place]illo [place] [address] [address] [address] 11/24/2023 10:24:15 11/24/2023 11:11:28 Porokeratosis 947055810 Q82.8 excised porokerato sis sharply and applied phenol to prevent reccurrenc e, Lt foot [id number] Elvin Murillo DPM [facility] [place] [address] [address] [address] 01/15/2024 14:20:48 01/16/2024 15:17:41 [id number] Elvin Murillo DPM [facility] [place] [address] [address] 01/23/2024 10:45:23 01/26/2024 11:53:02 Onychomycosis 283962682 B35.1 [id number] MD GEORGE Moeller[facility] [place] [address] 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 4448460996 21478 G56.01 [id number] Job garcia MD [facility] [place]i gabriel [address] [facility] [place] [address] 02/21/2024 14:22:53 02/21/2024 16:04:14 Screening - NAD 467699520 Z13.9 C-scope: Get this if not done Get yearly flu shot, get tdap if not doneCan do COVID 19 vaccine and its boosters RTC in 3 months, do labs, ER if worse, he and his mother did verbalize his understand ing of the above Screening for malignant neoplasm of colon 925824711 Z12.11 Migraine 10159776 G43.90 9 On propranolo l ER 120mg dailyOn sumatripta n 50mg dailyGet a referral to neurology Hyperlipidemia 59662627 E78.5 Not on any medGet labs Essential hypertension 43169702 I10 Get on amlodipine 10mg dailyGet a cardiology Moderate r ecurrent major depression 11597216 F33.1 On buspirone 10mg dailyOn duloxetine 60mg dailyNot suicidal or homicidalN eeds to see psychiatry Gout 25159992 M10.9 On allopurino l 100mg daily Low back pain 408922019 M54.50 S/p MCA, s/p surgeryOn meloxicam 7.5mg daily, advised to take ONLY as neededOn gabapentin On tramadol 50mg bidGet a referral to [facility] Hypogonadism 04422159 E2 9.1 Dr Marjorie Clark endocrine MDOn testostero ne weekly Insomnia 608086158 G47.0 0 On zolpidem 10mg daily,advi sed to take ONLY as needed Gastroesop hageal reflux disease without esophagitis 962182316 K21.9 On famotidine Get EGD done Oral cyst 2921641821 600897 K09.9 Get an apt with oral surgery, no obvious cyst was appreciate d, but the patient does 'feel' it at the roof of his mouth Serum mavis min B12 below reference range 985136316 R79.89 Vitamin D deficiency 347 71770 E55.9 [id number] Mina Bright MD [facility] [place] 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 [place] [address] 04/12/2024 08:55:46 04/12/2024 09:08:48 Pain of right wrist 4152974123 92358 M25.056 [id number] Mina Bright MD [facility] [place] 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 [place] [address] 05/08/2024 09:46:11 05/08/2024 10:14:27 Carpal tunnel syndrome of right wrist 6093130707 21893 G56.01 Pain of right wrist 3169 332223 30218 M25.531 Pain of left hand 991477 2947 85463 M79.375 [id number] Mina Bright MD [facility] [place] [address] [place] [address] 05/22/2024 09:38:05 05/22/2024 10:17:03 Pain of right shoulder joint 1927701152 3669261 M25.715 [id number] Job garcia MD [facility] Primary Care Zulma gabriel [address] [facility] [address] [place] [address] 05/22/2024 14:00:37 05/22/2024 14:57:47 Adult health examination 731990582 Z00.00 Screening for disorder 651919538 Z13.9 Screening - NAD 20562148 3 Z13.9 C-scope: Get this if not done Get yearly flu shot, get tdap if not doneCan do COVID 19 vaccine and its boosters RTC in 3 months, do labs, ER if worse, he did verbalize his understand ing of the above Screening for malignant neoplasm of colon 071028741 Z12.11 Migraine 84178311 G43.90 9 On propranolo l ER 120mg dailyOn sumatripta n 50mg dailyGet a referral to neurology Hyperlipidemia 28206248 E78.5 On rosuvastat in 40mg dailyGet labs Essential hypertension 12772952 I10 On amlodipine 10mg dailyDr Bulmaro 04/10/2024 Moderate r ecurrent major depression 36499904 F33.1 On buspirone 10mg dailyOn duloxetine 60mg dailyNot suicidal or homicidalN eeds to see psychiatry Gout 49271615 M10.9 On allopurino l 100mg daily Low back pain 276275564 M54.50 S/p MCA, s/p surgeryOn meloxicam 7.5mg daily, advised to take ONLY as neededOn gabapentin On tramadol 50mg bidGet a referral to [facility] Hypogonadism [id number] E2 9.1 Dr Marjorie Clark endocrine MDOn testostero ne weekly Insomnia 611936095 G47.0 0 On zolpidem 10mg daily,advi sed to take ONLY as needed Gastroesop hageal reflux disease without esophagitis 566687575 K21.9 On famotidine Get EGD done Oral cyst 8522076192 764452 K09.9 Get an apt with oral surgery, no obvious cyst was appreciate d, but the patient does 'feel' it at the roof of his mouth Serum mavis min B12 below reference range 032491747 R79.89 Vitamin D deficiency 347 47001 E55.9 Leukocytosis 180333053 D 72.829 Will repeat the CBC again Administra tion of influenza vaccine 99287084 Z23 [id number] Job garcia MD [facility] Primary Care [facility] [address] [place] [address] 08/21/2024 08:52:01 08/21/2024 09:54:02 Screening - NAD [id number] Z13.9 C-scope: Sees GI,now to get repeat EGD and C-scope with Dr Arias Get yearly flu shot, get tdap if not doneCan do COVID 19 vaccine and its boosters RTC in 3 months, do labs, ER if worse, he did verbalize his understand ing of the above Migraine 06837324 G43.90 9 On propranolo l ER 120mg dailyOn sumatripta n 50mg dailyDr Sid Smith Hyperlipidemia 76529345 E78.5 On rosuvastat in 40mg dailyGet labs Essential hypertension 81279157 I10 On amlodipine 10mg dailyDr Bulmaro 04/10/2024 Moderate r ecurrent major depression 65615560 F33.1 Not on buspirone 10mg daily On buspirone 30mg bid given by Susan Wood 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 [facility] dulox[facility] 60mg daily, given by Kerri Lipscomb MDNot suicidal or homicidal Gout 23631988 M10.9 On allopurino l 100mg daily Low back pain 479333174 M54.50 S/p MCA, s/p surgeryOn meloxicam 7.5mg daily, advised to take ONLY as neededOn gabapentin , given by Dr Sid SmithOn tramadol 50mg bidGet a referral to [facility] Hypogonadism 27828849 E2 9.1 Dr Marjorie Clark endocrine MDOn testostero ne weekly Insomnia 733576168 G47.0 0 On zolpidem 10mg daily,advi sed to take ONLY as needed Gastroesop hageal reflux disease without esophagitis 007910576 K21.9 On famotidine On protonix 40mg bidOn carafateHa s seen 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 Rolanda Normanlynn GI 08/06/2024 S/p EGD 07/2024 as per GI note Oral cyst 9969778003 281032 K09.9 Get an apt with oral surgery, no obvious cyst was appreciate d, but the patient does 'feel' it at the roof of his mouth Serum mavis min B12 below reference range 834617528 R79.89 Vitamin D deficiency 347 16595 E55.9 Increased liver function 03049924 R94.5 Sees GI PoropatIs to get a fibroscan on 08/26/2024 at [facility] Chronic diarrhea 6389084 09 K52.9 On colestipol 1gm bid started by GI on 08/06/2024 Is to get repeat of EGD and C-scope as per GI note Pain of ri ght shoulder joint 6420899109 2314227 M25.[address] Bright Pain in left thumb 73576 35738 799895 M79.645 S/p injuryCann ot bend the thumb, he is RHD [id number] Job garcia MD [facility] Primary Care [facility] [address] [place] [address] 10/23/2024 15:17:00 10/23/2024 16:41:14 Pain of hip region 96245825 M25.552 875506 Get on meloxicam as needed, all side effects explained to himAlso get a referral to ortho Pain of le ft knee joint 7427047585 57758 M25.562 466820 Get on meloxicam as needed, all side effects explained to himAlso get a referral to orthoER if worseHe is very appreciati ve to this plan of care [id number] Mina Bright MD [facility] Ortho [place] Fuentes [address] [place] [address] 10/30/2024 09:59:29 10/30/2024 10:48:43 Pain of hip region 76556276 M25.552 040829 Osteoarthritis of hip 23 4019502 M16.0 M16.10 M16.11 M16.12 [id number] Job garcia MD [facility] Zulma gabriel [address] [place] [address] 12/04/2024 10:12:03 12/04/2024 11:26:17 Pain of hip region 82154573 M25.552 106438 Get on meloxicam as needed, all side effects explained to himAlso get a referral to ortho Pain of le ft knee joint 1375174059 44663 M25.562 300176 Get on meloxicam as needed, all side effects explained to himAlso get a referral to orthoER if worseHe is very appreciati ve to this plan of care Screening - NAD 28963907 3 Z13.9 C-scope: Sees GI,now to get repeat EGD and C-scope with Dr Arias Get yearly flu shot, get tdap if not doneCan do COVID 19 vaccine and its boosters RTC in 3 months, do labs, ER if worse, he and his mother did verbalize his understand ing of the above Migraine 27178061 G43.90 9 On propranolo l ER 120mg daily Hernandez Garcia dOn sumatripta n 50mg daily Dr uGerra should keep his apt with the neurologis t! 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 [facility] duloxetine 60mg daily, given by Kerri Lipscomb MDNot suicidal or homicidal Gout 43177683 M10.9 On allopurino l 100mg daily Low back pain 609663722 M54.50 S/p MCA, s/p surgeryOn meloxicam 7.5mg daily, advised to take ONLY as neededOn gabapentin , given by Dr Sid Ogden tramadol 50mg bidGet a referral to [facility] Hypogonadism 15049914 E2 9.1 Dr Marjorie Clark endocrine MDOn testostero ne weekly Insomnia 159945982 G47.0 0 On zolpidem 10mg daily,advi sed to take ONLY as needed Gastroesop hageal reflux disease without esophagitis 024826503 K21.9 On famotidine On protonix 40mg bidOn carafateHa s seen 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 Rolanda Arias GI 08/06/2024 S/p EGD 07/2024 as per GI note Oral cyst 5716160247 268111 K09.9 Get an apt with oral surgery, no obvious cyst was appreciate d, but the patient does 'feel' it at the roof of his mouth Serum mavis min B12 below reference range 851230604 R79.89 Vitamin D deficiency 347 77054 E55.9 Increased liver function 26614403 R94.5 Sees GI Jodi to get a fibroscan on 08/26/2024 at [facility] Chronic diarrhea 0525467 09 K52.9 On colestipol 1gm bid started by GI on 08/06/2024 Is to get repeat of EGD and C-scope as per GI note Pain of ri ght shoulder joint 1188805915 0676233 M25.[address] Bright Pain in left thumb 51332 07827 960292 M79.645 S/p injuryCann ot bend the thumb, he is RHDS/p surgery 09/13/2024 for L RF trigger finger and L CTR Folliculitis 13772568 L7 3.9 43 Get on keflex and notify if not better [id number] Job garcia MD [facility] [address] [place] [address] 12/25/2024 09:15:46 12/25/2024 09:55:51 Pain of hip region 08615158 M25.552 585783 Get on meloxicam as needed, all side effects explained to himAlso get a referral to ortho OV 12/25/2024 :Dr Bright 12/25/2024 Pain of le ft knee joint 0448193559 38658 M25.562 494082 Get on meloxicam as needed, all side effects explained to himAlso get a referral to orthoER if worseHe is very appreciati ve to this plan of care Screening - NAD 51708147 3 Z13.9 C-scope: Sees GI,now to get repeat EGD and C-scope with Dr Poropat Get yearly flu shot, get tdap if not doneCan do COVID 19 vaccine and its boosters RTC in 3 months, do labs, ER if worse, he did verbalize his understand ing of the above Migraine 70633607 G43.90 9 On propranolo l ER 120mg daily Hernandez Garcia dOn sumatripta n 50mg daily Dr Guerra should keep his apt with the neurologis t! 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 at [facility] 12/25/2024 Gout 63173734 M10.9 On allopurino l 100mg daily Low back pain 102375590 M54.50 S/p MCA, s/p surgeryOn meloxicam 7.5mg daily, advised to take ONLY as neededOn gabapentin , given by Dr Sid Smith 12/15/2024 Not on tramadol 50mg bidGet a referral to [facility] this was again provided 12/25/2024 [address]adism [address] E2 9.[address] Marjorie Clark endocrine On testostero ne weekly Dr Clark 11/20/2024 Insomnia 754097021 G47.0 0 Not on zolpidem 10mg daily,advi sed to take ONLY as neededOn trazodone 100mg 0.5-1.5 tab as needed #135 tablets Susan Wood 11/30/2024 Gastroesop hageal reflux disease without esophagitis 501072298 K21.9 On famotidine On protonix 40mg bidOn carafateHa s seen 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 Rolanda Arias GI 08/06/2024 , 11/22/2024 S/p EGD/C-scop e 07/2024 as per GI note Oral cyst 1403201873 150102 K09.9 Get an apt with oral surgery, no obvious cyst was appreciate d, but the patient does 'feel' it at the roof of his mouth Serum mavis min B12 below reference range 207601198 R79.89 Vitamin D deficiency 347 41126 E55.9 Increased liver function 48528568 R94.5 Sees GI Poropat last OV 11/22/2024 US Liver 08/04/2024 : Steatosis Chronic diarrhea 4914942 09 K52.9 On colestipol 1gm bid started by GI on 08/06/2024 Is to get repeat of EGD and C-scope as per GI note To get aciphex, see telephone in clinical documents 12/17/2024 Pain of ri ght shoulder joint 4139776573 8791755 M25.511 OV 12/25/2024 :Dr Simpson 12/04/2024 , now planning surgery, but does not want to do this yet, he wants to wait till March as he is on a fixed income and wants to work till then Pain in left thumb 66445 92660 081749 M79.645 S/p injuryCann ot bend the thumb, he is RHDS/p surgery 09/13/2024 for L RF trigger finger and L CTR [id number] Mina Bright MD [facility] Ortho [place] [address] [place] [address] 12/25/2024 10:48:54 12/25/2024 11:40:53 Osteoarthritis of hip 932819481 M16.0 M16.10 M16.11 M16.12 Pain of le ft knee joint 1269700786 86439 M25.562 102227 [id number] Mina Bright MD [facility] [place] [address] [place] [address] 02/05/2025 09:14:08 02/05/2025 10:07:20 Pain of left knee joint 3160642802 42424 M25.562 481535 Pain of hip region 54077 002 M25.552 286282 Osteoarthritis of hip 23 4237227 M16.12 Health Concerns Section Related Observation LastModified by Organization Detai ls LastModified Time None Recorded Concern Status LastModified by Organization Details LastModified Time None Recorded Advance Directives Directive N: Payers Insurance Date Sequence Insurance Name Policy Number Policy Cook Covered Member ID Cook Member ID Guarantor Name 02/05/2025 1 [employer] (MEDICARE REPLACEMENT/ADVA NTAGE - HMO) Mitch Delatorre [id number] Mitch Delatorre 03/05/2025 1 [employer] - DUAL ELIGIBLE - GOLD [employer]US [employer]TE[employer] (MEDICARE - HMO) Mitch Delatorre [id number] Mitch Delatorre 02/05/2025 2 [place] COMPREHENSIVE MAJOR MEDICAL (INDEMNITY) Mitch Delatorre [id number] Mitch Delatorre Notes Date Note Type Note Provider Name and Address Organization Details Recorded Time 12/04/2024 text/html OV 02/21/2024: Here to establish carePresent Hx:MigraineHLDHTND epressionLBPHypogo nadismInsomniaGERD Oral cyst Here to discuss above and get labs OV 05/22/2024: Here for his f/u apt, he is now seeing ortho for his shoulder pain, he did do the labs, states that he is doing very well, he is also s/p CTR, he does have another apt with Dr Bright on 07/10/2024, he is here for his MWV also OV 08/21/2024: Here for his f/u apt, he feels well today, he has seen his GI and his neurologist, now has L thumb pain, no new labs noted OV 10/23/2024: Here with c/o L hip and L knee pain states that the L knee was swollen and now this is better but he still has pain, no acute or remote trauma, is able to ambulate well, no N/T or weakness OV 12/04/2024: Here for his f/u apt, he is here as he would like an 'insurance referral' to Dr Emre RAMIREZ for his GI MDHe also has had his LCTR done by Dr Penny Alarcon MD [address] [place] [address], [facility] [address], [place], [address], [facility] [facility] 12/04/2024 11:27:54 12/25/2024 text/html OV 02/21/2024: Here to establish carePresent Hx:MigraineHLDHTND epressionLBPHypogo nadismInsomniaGERD Oral cyst Here to discuss above and get labs OV 05/22/2024: Here for his f/u apt, he is now seeing ortho for his shoulder pain, he did do the labs, states that he is doing very well, he is also s/p CTR, he does have another apt with Dr Bright on 07/10/2024, he is here for his MWV also OV 08/21/2024: Here for his f/u apt, he feels well today, he has seen his GI and his neurologist, now has L thumb pain, no new labs noted OV 10/23/2024: Here with c/o L hip and L knee pain states that the L knee was swollen and now this is better but he still has pain, no acute or remote trauma, is able to ambulate well, no N/T or weakness OV 12/04/2024: Here for his f/u apt, he is here as he would like an 'insurance referral' to Dr Emre RAMIREZ for his GI MDHe also has had his LCTR done by Dr Francis OV 12/25/2024: Here for his f/u apt, does well at this time, he is not very sure of the name of his psychiatrist but has been provided his gabapentin and depression medications with Susan Wood and Dr Ruel Alarcon MD [address] [place] [address], [place] [address], [place], [address], [facility] 12/25/2024 10:10:25
--- OUTSIDE RECORDS SUMMARY | 2025-04-03 02:12 | XMS_ITS | Encounter Summary ---
Author Organization [facility] Address [address] [place] [address] Phone Care Team Providers Care Product Marketing Specialist Name Role Phone Valdemar Alcantara Miara FIELDS Unavailable [phone] Hernandez Altman MD Primary Care Provider [phone] Doug Sanford Unavailable Rose Mckeon MD Unavailable [phone] Dilia Hansen MD Unavailable [phone] Marjorie Clark MD Unavailable Kavon Renee DPM Unavailable Unavailable Fer Chauhan MD Unavailable Blaise Peterson MD Unavailable [phone] Clayton Iyer PAC Unavailable [phone] Juliana Smith Unavailable [phone] Areli Alarcon MD Primary Care Provider Reason for Visit * Reason Comments Medication Refill Encounter Details Date Type Department Care Team (Late st Contact Info) Description 01/26/2023 Refill [facility] Medical Group - Gastroenterology [facility] [address] [place] [address] Rose Mckeon MD [address] [place] [address] Medication Refill Social History Tobacco Use Types Packs/Day Years Used Date Smoking Tobacco: Never Smokeless Tobacco: Never Alcohol Use Standard Drinks/Week Comments Not Currently 3 (1 standard drink = 0.6 oz pur e alcohol) PHQ-2 Answer Date Recorded Total Score - Questions 1-9 3 07/0 08/2022 Sexually Active Control Partners Comments Yes [...] suspected to have Coronavirus/COVID-19? No / Unsure 01/13/2023 10:46 AM CDT documented as of this encounter Miscellaneous Notes * Telephone Encounter - Gela Pedro RN - 01/26/2023 10:54 AM CDT Medication refilled and signed per [facility] chronic medication standing order for pediatric and adult patients. documented in this encounter Plan of Treatment Upcoming Encounters Date Type Department Care Team (Late st Contact Info) Description 05/22/2025 8:45 AM GREEN CHAIN OFFBEARER Office Visit [facility] Medical Group - Endocrinology - [place] [address] [place] [address] Marjorie Clark MD [address] [address] 06/10/2025 8:30 AM GREEN CHAIN OFFBEARER Office Visit [facility] - Neu[facility] [address] [place] [address] Graciela Todd APRN, GREY GOODS EXAMINER [address] [place] [address] documented as of this encounter Visit Diagnoses Diagnosis Chronic diarrhea Diarrhea documented in this encounter Additional Health Concerns Infection Onset Date Last Indicated Resolved Time C. difficile Rule-Out 08/11/2023 08/11/20232023 12:32 PM GREEN CHAIN OFFBEARER Assessment Noted Time PHQ-9 Depression Total Score: 3 12/06/19 23 10:00 AM CDT documented as of this encounter Care Teams Product Marketing Specialist Relationship Specialty Start Date End Date Hernandez Altman MD [address] [place] [address] PCP - General Internal Medicine 08/27/21 12/11/24 Areli Alarcon MD [address] [place] [address] PCP - General Internal Medicine 12/12/24 Valdemar Alcantara APRN [address] [facility] [address] [place] [address] Nurse Practitioner Psychiatry 08/27/21 Doug Sanford [address] [address] Consulting Physician Endocrinology 08/27/21 Rose Mckeon MD [address] [place] [address] Consulting Physician Gastroenterology 08/27/21 Dilia Hansen MD [address] [place] [address] Consulting Physician Endocrinology 12/03/21 Marjorie Clark MD [address] [facility] [address] Consulting Physician Endocrinology 02/21/22 Kavon Renee DPM Podiatry 12/15/21 Fer Chauhan MD [address] [place] [address] Consulting Physician Neurology 12/05/22 Blaise Peterson MD #[address] [address] Consulting Physician Urology 01/03/23 Clayton Iyer PAC #[address] [address] Physician Brusher Warp Physician Brusher Warp 01/24/24 Juliana Smith [address] [place] [address] Nurse Practitioner Neurology 02/14/24 documented as of this encounter
--- OUTSIDE RECORDS SUMMARY | 2025-04-03 02:12 | XMS_ITS | Encounter Summary ---
Author Organization [facility] Address [address] [place] [address] Phone Care Team Providers Care Home Economics Expert Name Role Phone Romeo Joe MD Unavailable [phone] Jose Dang MD Primary Care Provider [phone] Valdemar Alcantara APRN Unavailable [phone] Hernandez Altman MD Primary Care Provider [phone] Doug Sanford Unavailable Doug Sanford Unavailable Rose Mckeon MD Unavailable [phone] Dilia Hansen MD Unavailable [phone] Marjorie Clark MD Unavailable Kavon Renee DPAlexa Unavailable Unavailable Fer Chauhan MD Unavailable [phone] Blaise Peterson MD Unavailable [phone] Clayton Iyer PAC Unavailable [phone] Juliana Smith Unavailable [phone] Areli Alarcon MD Primary Care Provider Reason for Visit * Reason Comments Medication Refill Encounter Details Date Type Department Care Team (Late st Contact Info) Description 12/14/2020 Refill [facility] - Gastroenterology - [place] [address] [place] [address] Yesenia Meza Angelina, PAC [address] [place] [address] Medication Refill Social History Tobacco Use Types Packs/Day Years Used Date Smoking Tobacco: Never Smokeless Tobacco: Never Alcohol Use Standard Drinks/Week Comments Not Currently 0 (1 standard drink = 0.6 oz pur e alcohol) 2x times per week Sexually Active Control Partners Comments Yes Sex and Gender Information Value Date Recorded Sex Assigned at Not on file Legal Sex Male 2:12 AM CDT Gender Identity Not on file Sexual Orientation Not on file documented as of this encounter Miscellaneous Notes * Telephone Encounter - Nilson Pierson CMA - 12/15/2020 8:17 AM CDT This was refilled for 180 tablets, a 90 day supply with 3 additional refills on 12/01/2020. documented in this encounter Plan of Treatment Upcoming Encounters Date Type Department Care Team (Late st Contact Info) Description 05/22/2025 8:45 AM CLOTH DYEING RANGE TENDER Office Visit [facility] Medical [facility] - Endocrinology - [place] [address] [place] [address] Marjorie Clark MD #[address] [address] 06/10/2025 8:30 AM CLOTH DYEING RANGE TENDER Office Visit [facility] - Neurology - [place] [address] [place] [address] Graciela Todd APRN, RN NEUROSURGICAL [address] [place] [address] documented as of this encounter Visit Diagnoses Diagnosis Gastroesophageal reflux disease, unspecified whether esophagitis present documented in this encounter Additional Health Concerns Infection Onset Date Last Indicated Resolved Time C. difficile Rule-Out 03/22/2022 03/22/20222021 1:25 PM CDT C. difficile Rule-Out 08/11/2023 08/11/20232023 12:32 PM CLOTH DYEING RANGE TENDER Assessment Noted Time PHQ-9 Depression Total Score: 0 10/04/19 2:42 PM CDT documented as of this encounter Care Teams Home Economics Expert Relationship Specialty Start Date End Date Jose Dang MD [address] [place] [address] [address] [place] [address] PCP - General Family Medicine 06/11/20 08/26/21 Hernandez Altman MD [address] [place] [address] PCP - General Internal Medicine 08/27/21 12/11/24 Areli Alarcon MD [address] [email or web address] [place] [address] PCP - General Internal Medicine 12/12/24 Romeo Joe MD General Surgery 06/25/15 08/26/21 Valdemar Alcantara, CUSTOMER RELATIONS REPRESENTATIVE [address] [place] [address] Nurse Practitioner Psychiatry 08/27/[address] [facility] [address] [place] [address] Endocrinology 08/27/21 08/27/[address] [place] [address] Consulting Physician Endocrinology 08/27/21 Rose Mckeon MD [address] [place] [address] Consulting Physician Gastroenterology 08/27/21 Dilia Hansen MD [address] [place] [address] Consulting Physician Endocrinology 12/03/21 Marjorie Clark MD #[address] [phone] Consulting Physician Endocrinology 02/21/22 Kavon Renee DPM Podiatry 12/15/21 Fer Chauhan MD [address] [place] [address] Consulting Physician Neurology 12/05/22 Blaise Peterson MD #[address] [address] Consulting Physician Urology 01/03/23 Clayton Iyer PAC #[address] [address] Physician Medical Massage Therapist Physician Medical Massage Therapist 01/24/24 Juliana Smith [address] [place] [address] Nurse Practitioner Neurology 02/14/24 documented as of this encounter
--- OUTSIDE RECORDS SUMMARY | 2025-04-03 02:12 | XMS_ITS | Encounter Summary ---
Author Organization [facility] Address [address] [place] [address] Phone Care Team Providers Care Paper Bag Inspector Name Role Phone Valdemar Alcantara Maira FIELDS Unavailable [phone] Hernandez Altman MD Primary Care Provider [phone] Doug Sanford Unavailable Rose Mckeon MD Unavailable [phone] Dilia Hansen MD Unavailable [phone] Marjorie Clark MD Unavailable Kavon Renee DPM Unavailable Unavailable Fer Chauhan MD Unavailable Blaise Peterson MD Unavailable [phone] Clayton Iyer PAC Unavailable [phone] Juliana Smith Unavailable [phone] Areli Alarcon MD Primary Care Provider Reason for Visit * Reason Comments Medication Refill Encounter Details Date Type Department Care Team (Late st Contact Info) Description 07/04/2023 [facility]ill [facility] - [place] [address] [place] [address] Marjorie Clark MD #[address] [address] Medication Refill Social History Tobacco Use Types [...] Telephone Encounter - Gela Ortiz RN - 07/04/2023 4:06 PM IMAGE SCIENTIST Requested Prescriptions Pending Prescriptions Disp Refills ??? testosterone cypionate (DEPO-TESTOSTERONE) 200 MG/ML Solution [Pharmacy Med Name: TESTOSTERONE CYP 200 MG/ML] 6 mL 0 Sig: INJECT 0.5 ML BY INTRAMUSCULAR ROUTE EVERY 7 DAYS (ON THURSDAYS) Next appt: 08/24/2023 E SCIENTIST documented in this encounter Plan of Treatment Upcoming Encounters Date Type Department Care Team (Late st Contact Info) Description 05/22/2025 8:45 AM IMAGE SCIENTIST Office Visit [facility] - Endocrinology - [place] [address] [place] [address] Marjorie Clark MD #[address] [address] 06/10/2025 8:30 AM IMAGE SCIENTIST Office Visit [facility] - Neurology [facility] [place] [address] [place] [phone] Graciela Todd APRN, SMALL ANIMAL CARETAKER [address]2 [place] [address] documented as of this encounter Visit Diagnoses Diagnosis Male hypogonadism Other testicular hypofunction documented in this encounter Additional Health Concerns Infection Onset Date Last Indicated Resolved Time C. difficile Rule-Out 08/11/2023 08/11/20232023 12:32 PM IMAGE SCIENTIST Assessment Noted Time PHQ-9 Depression Total Score: 0 06/08/19 9:26 AM IMAGE SCIENTIST documented as of this encounter Care Teams Paper Bag Inspector Relationship Specialty Start Date End Date Hernandez Altman MD [address] [place] [address] PCP - General Internal Medicine 08/27/21 12/11/24 Areli Alarcon MD [address] [place] [address] PCP - General Internal Medicine 12/12/24 Valdemar Alcantara APRN [address] Pedraza [facility] 2 [place] [address] Nurse Practitioner Psychiatry 08/27/21 Doug Sanford [address] [address] Consulting Physician Endocrinology 08/27/21 Rose Mckeon MD #2 [place] [address] Consulting Physician Gastroenterology 08/27/21 Dilia Hansen MD #2 [place] [address] Consulting Physician Endocrinology 12/03/21 Marjorie Clark MD [facility]2 [facility] [phone] Consulting Physician Endocrinology 02/21/22 Kavon Renee DPM Podiatry 12/15/21 Fer Chauhan MD [address] [place] [address] Consulting Physician Neurology 12/05/22 Blaise Peterson MD #[address] [address] Consulting Physician Urology 01/03/23 Clayton Iyer PAC #[address] [address] Physician Benchroom Shop Optician Physician Benchroom Shop Optician 01/24/24 Juliana Smith [address] [place] [address] Nurse Practitioner Neurology 02/14/24 documented as of this encounter
--- OUTSIDE RECORDS SUMMARY | 2025-04-03 02:12 | XMS_ITS | Encounter Summary ---
Author Organization [facility] Address [address] [place] [address] Phone Care Team Providers Care Manager Rn Name Role Phone Romeo Joe MD Unavailable [phone] Jose Dang MD Primary Care Provider [phone] Valdemar Alcantara APRN Unavailable [phone] Hernandez Altman MD Primary Care Provider [phone] Doug Sanford Unavailable Doug Sanford Unavailable Rose Mckeon MD Unavailable [phone] Dilia Hansen MD Unavailable [phone] Marjorie Clark MD Unavailable Kavon Renee DPAlexa Unavailable Unavailable Fer Chauhan MD Unavailable [phone] Blaise Peterson MD Unavailable [phone] Clayton Iyer PAC Unavailable [phone] Juliana Smith Unavailable [phone] Areli Alarcon MD Primary Care Provider Reason for Visit * Reason Comments Medication Refill Encounter Details Date Type Department Care Team (Late st Contact Info) Description 07/25/2021 Refill [facility] - [facility] - [place] [address]2 [place] [phone] Rose Mckeon MD #2 [place] [address] Medication Refill Social History Tobacco Use Types Packs/Day Years Used Date Smoking Tobacco: Never Smokeless Tobacco: Never Alcohol Use Standard Drinks/Week Comments Yes 0 (1 standard drink = 0.6 oz pur e alcohol) 3-4x weekly Sexually Active Control Partners Comments Yes Sex and Gender Information Value Date Recorded Sex Assigned at Not on file Legal Sex Male 2:12 AM CDT Gender Identity Not on file Sexual Orientation Not on file documented as of this encounter Miscellaneous Notes * Telephone Encounter - Gela Pedro RN - 07/26/2021 10:22 AM ADULT EDUCATOR Pharmacy requesting refill of: Requested Prescriptions Pending Prescriptions Disp Refills ??? colestipol (COLESTID) 1 GM Tablet [Pharmacy Med Name: COLESTIPOL HCL 1 GM TABLET] 180 Tablet 1 Sig: TAKE 1 TABLET BY MOUTH TWICE A DAY Last fill: 05/06/2021 Patients last OV with GI: 05/06/2021 Next Office Visit with GI: 09/09/2021 Medication failed protocol, routing to provider for review. Colestipol order pended, please review. T EDUCATOR documented in this encounter Plan of Treatment Upcoming Encounters Date Type Department Care Team (Late st Contact Info) Description 05/22/2025 8:45 AM ADULT EDUCATOR Office Visit [facility] - Endocrinology - [place] [address] [place] [phone] Marjorie Clark MD #[address] [address] 06/10/2025 8:30 AM ADULT EDUCATOR Office Visit [facility] - Neurology - [place] [address] [place] [address] Graciela Todd, DONNIE, AVIATION ENGINEER #[address] [place] [address] documented as of this encounter Visit Diagnoses Diagnosis Chronic diarrhea Diarrhea documented in this encounter Additional Health Concerns Infection Onset Date Last Indicated Resolved Time C. difficile Rule-Out 03/22/2022 03/22/20222021 1:25 PM CDT C. difficile Rule-Out 08/11/2023 08/11/20232023 12:32 PM ADULT EDUCATOR Assessment Noted Time PHQ-9 Depression Total Score: 0 10/04/19 2:42 PM CDT documented as of this encounter Care Teams Manager Rn Relationship Specialty Start Date End Date Jose Dang MD [address] [place] [address] [place] [address] PCP - General Family Medicine 06/11/20 08/26/21 Hernandez Altman MD [address] [place] [address] PCP - General Internal Medicine 08/27/21 12/11/24 Areli Alarcon MD [address] [place] [address] PCP - General Internal Medicine 12/12/24 Romeo Joe MD General Surgery 06/25/15 08/26/21 Valdemar Alcantara, FRAME CHANGER [address] [place] [address] Nurse Practitioner Psychiatry 08/27/21 Doug Sanford [address] [place] [address] Endocrinology 08/27/21 08/27/21 Doug Sanford [address] [place] [address] Consulting Physician Endocrinology 08/27/21 Rose Mckeon MD #2 [place] [address] Consulting Physician Gastroenterology 08/27/21 Dilia Hansen MD #2 [place] [address] Consulting Physician Endocrinology 12/03/21 Marjorie Clark MD #[address] [phone] Consulting Physician Endocrinology 02/21/22 Kavon Renee DPM Podiatry 12/15/21 Fer Chauhan MD [address] [place] [address] Consulting Physician Neurology 12/05/22 Blaise Peterson MD #[address] [address] Consulting Physician Urology 01/03/23 Clayotn Iyer PAC #2 [facility] [address] [place] [address] Physician Electric Truck Driver Physician Electric Truck Driver 01/24/24 Juliana Smith [address] [address] Nurse Practitioner Neurology 02/14/24 documented as of this encounter
--- OUTSIDE RECORDS SUMMARY | 2025-04-03 02:13 | XMS_ITS | Clinical Summary ---
Author Organization [facility] [employer] [facility] Address [address] [place] [address] Care Team Providers Care Barrel Scraper Name Role Phone Unavailable Primary Care Provider Unavailabl e Source Comments [facility] [facility],non-owned Affiliates and Associated Physician Practices is amultiple site organization consisting of ambulatory clinics and hospital sitesin [place], [place], [place] and [place]. This disclosure is being madepursuant to the Care Everywhere program and may not contain all information available regarding this patient. Last updated 18.[facility] [employer] [facility] Allergies Active Allergy Reactions Criticality Noted Date Comments Nabumetone Other,Eye Discomfort Medium 05/25/2010 Seeing Red dots Sulfa Antibiotics Palpitations Low 09/15/2022 sweating Medications * Be aware that medications may not be up to date on this document. Alwaysverify current medications with the patient. colestipol (Colestid) 1 GM tablet Take 1 (one) tablet by mouth 2 times daily 08/05/19 23 Active cyclobenzaprin e (Flexeril) 10 MG tablet Take 1 (one) tablet by mouth 2 times daily as needed 08/12/19 22 Active DULoxetine (Cymbalta) 60 MG capsule Take 1 (one) capsule by mouth once daily 07/11/19 23 Active pantoprazole EC (Protonix) 40 MG tablet Take 1 (one) tablet by mouth once daily 08/05/19 23 Active B-D 3CC LUER-KRISTEN SYR 97DG7-2/2 22G X 1-1/2 3 ML MISC USE ONCE WEEKLY TO ADMINISTER TESTOSTERONE DIRECTED. 07/25/19 23 Active allopurinol (Zyloprim) 100 MG tablet Take by mouth once daily Active mesalamine EC (Lialda) 1.2 g tablet Take 2 (two) tablets by mouth once daily 10/28/19 23 Active clonazePAM, disintegrating , (KlonoPIN Wafer) 0.125 MG tablet Take 1 (one) tablet by mouth 2 times daily as needed for Anxiety 16 tablet 2 03/01/20 23 Active Propranolol HCl ER 160 MG CP24 Take 160 mg by mouth once daily 03/21/20 23 Active QUEtiapine (SEROquel) 50 MG tablet Take 1 (one) tablet by mouth 07/11/19 24 Active zolpidem (Ambien) 10 MG tablet Take 1 (one) tablet by mouth 07/12/19 24 Active testosterone cypionate (Depo-Testoste yogi) 200 MG/ML injection Inject 0.5 mL into muscle every 7 days 07/14/19 24 Active amLODIPine (Norvasc) 10 MG tablet Take 1 (one) tablet by mouth once daily Active cephalexin (Keflex) 500 MG capsule TAKE 1 CAPSULE BY MOUTH EVERY 6 HOURS 04/12/20 24 Active NA-K-MG sulfates (Suprep) 17.5-3.13-1.6 GM/177ML solution PLEASE SEE ATTACHED FOR DETAILED DIRECTIONS Active traZODone (Desyrel) 100 MG tablet TAKE 1/2 TO 1 AND 1/2 TABLETS BY MOUTH AT BEDTIME NEEDED FOR SLEEP Active busPIRone (Buspar) 30 MG tablet Take 1 tablet twice a day by oral route for 90 days. Active sucralfate (Carafate) 1 GM tablet 07/09/19 25 Active DULoxetine (Cymbalta) 60 MG capsule Take 1 (one) capsule by mouth once daily Active gabapentin (Neurontin) 300 MG capsuleIndicat ions:Migraine with aura and without status migrainosus, not intractable,Re bound headache TAKE 2 CAPSULES BY MOUTH TWICE A DAY 120 capsule 1 03/14/20 25 Active gabapentin (Neurontin) 300 MG capsuleIndicat ions:Migraine with aura and without status migrainosus, not intractable,Re bound headache Take 2 (two) capsules by mouth 2 times daily 120 capsule 5 07/23/19 25 025 Discontinued Active Problems Problem Noted Date Diagnosed Date Oral cyst 05/21/2024 Hiatal hernia 02/20/2024 Porokeratosis 11/24/2023 Numbness of left hand 11/30/2022 11/30/2022 Anxiety and depression 08/27/2021 RLS (restless legs syndrome) 08/27/2021 Other male erectile dysfunction 11/27/2020 11/30/2022 Chronic hepatitis C without hepatic coma 020 11/30/2022 Pituitary adenoma 05/31/2019 10/18/2022 Crohn's disease of colon without complication 11/30/2022 Chronic foot pain, right 10/02/2018 023 History of foot surgery 10/02/2018 12/01/19 23 Hyperglycemia 10/02/2018 11/30/2022 Secondary male hypogonadism 10/01/201811/04 Right Achilles tendinitis 04/27/20182022 Chronic joint pain 10/03/2017 11/30/2022 Neurogenic bladder 11/02/2016 11/30/2022 Elbow pain 08/12/2016 11/30/2022 Overview (11/30/2022): Elbow pain Gout 07/08/2016 11/30/2022 Overview (11/30/2022): Gout Gastroesophageal reflux disease 09/11/2015 11/30/2022 Insomnia 09/11/2015 11/30/2022 Neoplasm of skin 07/23/2015 11/30/2022 Cyst of neck 06/18/2015 11/30/2022 Hypertension, essential 06/18/2015 12/01/19 23 Pituitary neoplasm 10/15/2013 11/30/2022 Overview (11/30/2022): Pituitary tumor Pituitary tumor Crohn's disease 04/13/2010 11/30/2022 Overview (11/30/2022): Crohns disease Resolved Problems Problem Noted Date Diagnosed Date Resolved Date Acute intractable headache, unspecified headache type 02/28/2023 11/20/2024 Pain of finger 07/08/2016 11/30/2022 11/20/2024 Overview (11/30/2022): Finger pain Encounters Date Type Department Care Team Description 03/14/2025 Refill [facility] - Neurology [address] [place] [address], [place] [address] Juliana Smith, PHOTOCOMPOSITION KEYBOARD OPERATOR-TORCH OPERATOR Refill Request 02/27/2025 Orders Only [facility] - Neurology [address] [place] [phone] April Steinberg RN 02/25/2025 Refill [facility] - Neurology [address] [place] [phone] Juliana Smith, PHOTOCOMPOSITION KEYBOARD OPERATOR-TORCH OPERATOR Refill Request from Last 3 Months Immunizations Immunization Administration Dates Next Due FLU VACCINE TRI IIV3 SPLIT I M (FLUVIRIN) 03/05/2014,06/05/2012 FLU VACCINE TRI IIV3 SPLIT P F IM (FLUVIRIN) 05/22/2024 INFLUENZA VACCINE, QUADR. (F LUZONE; FLULAVAL; FLUARIX; AFLURIA QUADRIVALENT; 6MO+), 0.5 ML (IIV4) 03/21/2023,03/22/2022,04/12/2018,2016 INFLUENZA VACCINE, TRIV. (FL UZONE; FLULAVAL; FLUARIX; AFLURIA TRIVALENT; 6MO+), 0.5 ML (IIV3) 06/05/2014 PNEUMOCOCCAL PCV20 CONJ VAC IM 06/07/2022 PNEUMOCOCCAL PPV VACCINE 06/05/2005 TD (AGE 7-ADULT) 06/05/2004 TDAP, HISTORIC VACCINE 03/06/2019,07/26/2018, Family History Medical History Relation Name Comments Blindness Neg Hx Glaucoma Neg Hx Macular Degeneration Neg Hx Social History Tobacco Use Types Packs/Day Years Used Date Smoking Tobacco: Never Smokeless Tobacco: Never Tobacco Cessation:Counseling Given: Not Answered Alcohol Use Standard Drinks/Week Comments Yes 6 (1 standard drink = 0.6 oz pur e alcohol) every other day AUDIT-C Answer Date Recorded Q1: How often do you have a drink containing alcohol? Never 04/06/2023 Q2: How many drinks containi ng alcohol do you have on a typical day when you are drinking? Patient does not drink Q3: How often do you have si x or more drinks on one occasion? Never 04/06/2023 Overall Financial Resource Strain (CARDIA) Answe r Date Recorded How hard is it for you to pa y for the very basics like food, housing, medical care, and heating? Not hard at all 03/01/2023 [facility] [place] [facility] - Occupational Stress [...] place to sleep or slept in a snf (including now)? No 03/01/2023 Sex and Gender Information Value Date Recorded Sex Assigned at Not on file Legal Sex Male 6:01 AM RN HEDIS Gender Identity Not on file Sexual Orientation Not on file Last Filed Vital Signs Vital Sign Reading Time Taken Comments Blood Pressure 162/92 01/22/2024 9:23 AM CDT Pulse 73 01/22/2024 9:23 AM CDT Temperature 36.1 C (97 F) 07/24/2023 10:24 AM RN HEDIS Respiratory Rate 12 04/06/2023 11:15 AM CDT Oxygen Saturation 99% 07/24/2023 10:24 AM RN HEDIS Inhaled Oxygen Concentration - - Weight 106.1 kg (234 lb) 01/22/2024 9:23 AM CDT Height 180.3 cm (5' 11) 04/06/2023 7:23 AM CDT Body Mass Index 32.64 04/06/2023 7:23 AM CDT Plan of Treatment Health Maintenance Due Date Last Done Comments COLOGUARD (AGES 45-75) - COLON CA SCREENING 1974 CT COLONOGRAPHY - COLON CA SCREENING 1974 FIT - COLON CA SCREENING 1974 FLEX SIG - COLON CA SCREENING 1974 HIV SCREENING 1989 HEPATITIS B VACCINE (1 of 3 - 19+ 3-dose series) 1993 DEPRESSION SCREENING 06/05/2024 MEDICARE AWV CALENDAR YEAR 2024 ZOSTER VACCINE (1 of 2) 2024 COVID-19 VACCINE ( - season) 2025 06/07/2022, 03/27/2021, 02/13/2021 INFLUENZA VACCINE (#1) 2025 , 03/21/2023, 03/22/2022, Additional history exists LIPID TESTING 12/06/2027 12/05/2022 DTAP/TDAP/TD VACCINES (5 - Td or Tdap) 03/06/2029 03/06/2019, 07/26/2018, 08/03/2015, Additional history exists COLON MONITORING 07/08/2034 07/08/2024 COLONOSCOPY - COLON CA SCREENING 07/08/2034 07/08/2024 Colorectal Cancer Screening 07/08/2034 HEPATITIS C SCREENING Completed 11/26/2019, 019 PNEUMOCOCCAL VACCINE 50+ Completed 06/07/2022, 06/2005 HIB VACCINE Aged Out No longer eligi ble based on patient's age to complete this topic HPV VACCINE Aged Out No longer eligi ble based on patient's age to complete this topic MENINGOCOCCAL (Group B) VACCINE SHARED DECISION-MAKING Aged Out No longer eligible based on patient's age to complete this topic MENINGOCOCCAL GROUPS A/C/Y/W VACCINE Aged Out No longer eligible based on patient's age to complete this topic Medical Devices Explanted Type Area Criminal Justice Instructor Device Identifier Shelf Expiration Date Model / Serial / Lot Sacral Stimulator [employer] 3058 / / Description:Explanted no w. See scanned surgical report-LT 02/10/23 Patient does have device packing machine tender and remote, however, device is . Per [employer], unable to do scan as patient needs to be able to put this in MRI mode- LT 11/15/22 Insurance MEDICAID - [place] [facility] MEDICARE ADV D-SNP & C-SNP Advance Directives * Full Code (Latest Code Status on File) Date Activated Date Inactivated Comments 02/28/2023 5:11 PM 03/01/2023 6:44 PM
--- OUTSIDE RECORDS SUMMARY | 2025-04-03 02:13 | XMS_ITS | Encounter Summary ---
Author Organization [facility] Address [address] [place] [address] Phone Care Team Providers Care Special Systems Technician Name Role Phone Quinton Valdemar Rao APRN Unavailable Doug Sanford Unavailable Rose Mckeon MD Unavailable [phone] Dilia Hansen MD Unavailable [phone] Marjorie Clark MD Unavailable Kavon Renee DPM Unavailable Unavailable Fer Chauhan MD Unavailable Blaise Peterson MD Unavailable [phone] Clayton Iyer PAC Unavailable Juliana Smith Unavailable [phone] Areli Alarcon MD Primary Care Provider Encounter Details Date Type Department Care Team (Latest Contact Info) Description 12/31/2024 Transcribe Orders [facility] Laboratory Services [address] [place] [address] Provider, Not On File [place] Elevated liver enzymes (Primary Dx) Social History Tobacco Use Types Packs/Day Years Used Date Smoking Tobacco: Never Smokeless Tobacco: Never Alcohol Use Standard Drinks/Week Comments Yes 3 (1 standard drink = 0.6 oz pur e alcohol) [facility] Utilities Answer Date Recorded In [...] declined 09/06/2023 How often do you attend denominational or spiritism serv ices? Patient declined 09/06/2023 Do you belong to any clubs o r organizations such as denominational groups, unions, fraternal or athletic groups, or [...] Score - Questions 1-9 0 /0 09/2023 [facility] - Occupational Stress [...] place to sleep or slept in a fpc (including now)? Patient declined 09/06/2023 Sexually Active Control Partners Comments Yes Sex and Gender Information Value Date Recorded Sex Assigned at Not on file Legal Sex Male 2:12 AM CDT Gender Identity Not on file Sexual Orientation Not on file documented as of this encounter Plan of Treatment Upcoming Encounters Date Type Department Care Team (Late st Contact Info) Description 05/22/2025 8:45 AM BLOOD TESTER FOWL Office Visit [facility] - Endocrinology - [place] #2 [place] [address] Marjorie Clark MD #[address] [address] 06/10/2025 8:30 AM BLOOD TESTER FOWL Office Visit [facility] - Neurology - [place] [address] [place] [address] Graciela Todd APRN, ASSISTANT SHIFT SUPERVISOR [address] [place] [address] documented as of this encounter Results * HEPATITIS B CORE TOTAL ANTIBODY (03/24/2025 11:05 AM CDT) HEP B CORE TOTAL (IGM, IGG) BKR NON DETECTED NON DETECTED 03/25/2025 12:03 AM CDT [facility] Blood Venipuncture / Unknown 03/24/2025 11:05 AM CDT 03/24/2025 12:08 PM CDT us Not On File Provider CHEMISTRY ORDERABLES Final Result [facility] [address] [place] [address], [place] * MARC SCREEN MULTIPLEX W/REFLEX JADE (03/24/2025 11:05 AM CDT) Pathologist [facility] MARC SCR MULTIPLEX Negative Negative, See comment 03/27/2025 6:35 PM CDT [facility] Blood Venipuncture / Unknown 03/24/2025 11:05 AM CDT 03/24/2025 12:07 PM CDT Narrative [facility] - 03/27/2025 6:35 PM CDT Antibody testing was performed by multiplex flow immunoassay on the [employer] platform. us Not On File Provider IMMUNOLOGY ORDERABLES Final Result Performing Organization Address City/[facility]/ZIP Co de Phone Number [facility] [address] [place] [address], [place] * HEPATITIS A ANTIBODY IGM (03/24/2025 11:05 AM CDT) Pathologist [facility] HEPATITIS A IGM ANTIBODY NON DETECTED NON DETECTED 03/25/2025 12:03 AM CDT [facility] Comment: IGM Antibodies to HAV not detected. Does not exclude early acute or recovered HAV infection. Blood Venipuncture / Unknown 03/24/2025 11:05 AM CDT 03/24/2025 12:08 PM CDT us Not On File Provider CHEMISTRY ORDERABLES Final Result Performing Organization Address City/[facility]/ZIP Co de Phone Number [facility] [address] [place] [address], [place] * CERULOPLASMIN (03/24/2025 11:05 AM CDT) CERULOPLASMIN 22 20 - 60 mg/dL 03/24/2025 11:32 PM CDT [facility] Blood Venipuncture / Unknown 03/24/2025 11:05 AM CDT 03/24/2025 12:07 PM CDT us Not On File Provider CHEMISTRY ORDERABLES Final Result Performing Organization Address [facility] Co de Phone Number [facility] [address] [place] [address], [place] * ACTIN (F-ACTIN) ANTIBODY (SMOOTH MUSCLE AB), IGG, SERUM (03/24/2025 11:05 AM CDT) F-ACTIN 8.1 <20.0 03/26/2025 11:47 AM CDT [facility] Comment: <20.0 Negative 20.0-30.0 Weak Positive >30.0 Moderate to Strong Positive Blood Venipuncture / Unknown 03/24/2025 11:05 AM CDT 03/24/2025 12:07 PM CDT Narrative [facility] - 03/26/2025 11:47 AM CDT Performed by enzyme-linked immunosorbent assay (SARAH). us Not On File Provider IMMUNOLOGY ORDERABLES Final Result Performing Organization Address [facility]/ZIP Co de Phone Number [facility] [address] [place] [address], [place] documented in this encounter Visit Diagnoses Diagnosis Elevated liver enzymes- Primary Nonspecific elevation of levels of transaminase or lactic acid dehydrogenase (LDH) documented in this encounter Additional Health Concerns Assessment Noted Time PHQ-9 Depression Total Score: 0 06/08/19 24 9:26 AM BLOOD TESTER FOWL documented as of this encounter Care Teams Special Systems Technician Relationship Specialty Start Date End Date Areli Alarcon MD [address] [place] [address] PCP - General Internal Medicine 12/12/24 Valdemar Alcantara APRN [address] [place] [address] Nurse Practitioner Psychiatry 08/27/21 Doug Sanford [address] [place] [address] Consulting Physician Endocrinology 08/27/21 Rose Mckeon MD #2 [place] [address] Consulting Physician Gastroenterology 08/27/21 Dilia Hansen MD #2 [place] [address] Consulting Physician Endocrinology 12/03/21 Marjorie Clark MD #[address] [facility] [address] [place] [address] Consulting Physician Endocrinology 02/21/22 Kavon Renee DPM Podiatry 12/15/21 Fer Chauhan MD [address] [place] [address] Consulting Physician Neurology 12/05/22 Blaise Peterson MD #2 [facility] [address] [place] [address] Consulting Physician Urology 01/03/23 Clayton Iyer, GILMAR #[address] [address] Physician Clerk General Office Physician Clerk General Office 01/24/24 Juliana Smith [address] [address] Nurse Practitioner Neurology 02/14/24 documented as of this encounter
--- OUTSIDE RECORDS SUMMARY | 2025-04-03 02:13 | XMS_ITS | Encounter Summary ---
Author Organization [facility] Address [address] [place] [address] Phone Care Team Providers Care It Support Analyst Name Role Phone Quinton Valdemar Rao APRN Unavailable [phone] Doug Sanford Unavailable Rose Mckeon MD Unavailable [phone] Dilia Hansen MD Unavailable [phone] Marjorie Clark MD Unavailable Kavon Renee DPM Unavailable Unavailable Fer Chauhan MD Unavailable Blaise Peterson MD Unavailable [phone] Clayton Iyer PAC Unavailable [phone] Juliana Smith Unavailable [phone] Areli Alarcon MD Primary Care Provider Encounter Details Date Type Department Care Team (Late st Contact Info) Description 12/26/2024 Transcribe Orders [facility] Central Scheduling 1 [place] [address] Provider, Not On File [place] Social History Tobacco Use Types Packs/Day Years Used Date Smoking Tobacco: Never Smokeless Tobacco: Never Alcohol Use Standard Drinks/Week Comments Yes 3 (1 standard drink = 0.6 oz pur e alcohol) [facility] Utilities Answer Date Recorded In the [...] declined 09/06/2023 How often do you attend orthodox or baptism serv ices? Patient declined 09/06/2023 Do you belong to any clubs o r organizations such as orthodox groups, unions, fraternal or athletic groups, or [...] Score - Questions 1-9 0 /0 09/2023 [facility] - Occupational [...] st Contact Info) Description 05/22/2025 8:45 AM TARE WORKER Office Visit [facility] - Endocrinology - [place] #2 [place] [address] Marjorie Clark MD #[address] [address] 06/10/2025 8:30 AM TARE WORKER [facility] - Neurology [facility] #2 [place] [address] Graciela Todd APRN, MOBILE APPLICATION DEVELOPMENT LEAD [address] [place] [address] documented as of this encounter Visit Diagnoses Not on filedocumented in this encounter Additional Health Concerns Assessment Noted Time PHQ-9 Depression Total Score: 0 06/08/19 24 9:26 AM TARE WORKER documented as of this encounter Care Teams It Support Analyst Relationship Specialty Start Date End Date Areli Alarcon MD [address] [place] [address] PCP - General Internal Medicine 12/12/24 Valdemar Alcantara, WILLOW MACHINE OPERATOR [address] [place] [address] Nurse Practitioner Psychiatry 08/27/21 Doug Sanford [address] [place] [address] Consulting Physician Endocrinology 08/27/21 Rose Mckeon MD #2 [place] [address] Consulting Physician Gastroenterology 08/27/21 Dilia Hansen MD #2 [place] [address] Consulting Physician Endocrinology 12/03/21 Marjorie Clark MD #2 [facility] [address] [place] [address] Consulting Physician Endocrinology 02/21/22 Kavon Renee DPM Podiatry 12/15/21 Fer Chauhan MD [address] [place], [place] [address] Consulting Physician Neurology 12/05/22 Blaise Peterson MD #2 [facility] [address] [place] [address] Consulting Physician Urology 01/03/23 Clayton Iyer PAC #2 [facility] [address] [place] [address] Physician Log Scaler Physician Log Scaler 01/24/24 Juliana Smith [address] [address] Nurse Practitioner Neurology 02/14/24 documented as of this encounter
[2025-04-10] VITALS (9 sets, daily range): BP systolic 123–136; BP diastolic 66–90; PULSE 81–103; RESP 16–20; TEMP 36.4; O2SAT 95–99
[2025-04-10] MEDS: ACETAMINOPHEN 500 MG TABLET 1000 MG PO (06:36)
[2025-04-10] MEDS: LACTATED RINGERS 1,000 ML 30 ML IV CONT ×2 (06:40→10:00)
[2025-04-10] MEDS: VANCOMYCIN 1,500 MG/NS 500 ML BAG 250 MG IVPB (06:42)
--- NOTE | 2025-04-10 07:09 | WPDANESEPPF ---
Anes - Initial Pre Proc Eval Procedure: Operation Date: 04/10/25 07:30 Proposed Procedures p Right Shoulder Arthroscopy, Open Rotator Cuff Repair, Possible Biceps Tenodesis, Proceed as Indicated - Romeo Simpson MD Date/Time: 04/10/25 07:09 Surgeon: Romeo Simpson MD Pre Op Diagnosis: rt.rotator cuff tear, proable biceps subluxation Patient Data Age: 49 Gender: M Height: 1.8 m Weight: 103.5 kg Last Vital Signs Temp 97.6 F 04/10/25 06:20 Pulse 81 04/10/25 06:20 Resp 18 04/10/25 06:20 BP 129/90 04/10/25 06:20 Pulse Ox 98 04/10/25 06:20 O2 Del Method Room Air 04/10/25 06:20 Allergies Allergy/AdvReac Type Severity Reaction Status Date / Time nabumetone Allergy Unknown Hallucinati Verified 04/10/25 06:52 ng Sulfa (Sulfonamide Allergy Unknown Unknown Verified 04/10/25 06:52 Antibiotics) Home Medications ?Medication ?Instructions ?Recorded ?Confirmed ?Type allopurinol 100 mg tablet 100 mg PO DAILY 09/30/24 04/10/25 History amlodipine 10 mg tablet 10 mg PO DAILY 09/30/24 04/10/25 History buspirone 15 mg tablet 30 mg PO BID 09/30/24 04/10/25 History calcium carbonate (Calcium 600) 600 mg PO DAILY 09/30/24 04/10/25 History colestipol 1 gram tablet 1 g PO ONCE 09/30/24 04/10/25 History duloxetine 60 mg capsule,delayed 60 mg PO DAILY 09/30/24 04/10/25 History release testosterone cypionate 200 mg/mL 100 mg IM WEEKLY 09/30/24 04/10/25 History intramuscular oil (Depo-Testosterone) trazodone 100 mg tablet 100 mg PO QHS 09/30/24 04/10/25 History atogepant 60 mg tablet (Qulipta) 60 mg PO HS 03/24/25 04/10/25 History rabeprazole 20 mg tablet,delayed 20 mg PO DAILY 03/24/25 04/10/25 History release sumatriptan succinate 100 mg tablet 100 mg PO PRN 03/24/25 04/10/25 History Patient hx anesthesia problems: none Family hx anesthesia problems: none Results Review: All pre-operative results and documents have been reviewed as part of the pre-operative evaluation. [facility] Past Medical History Medical History Sacral nerve stimulator present Crohn disease Torn rotator cuff Surgical History Surgical History History of gastric bypass History of shoulder surgery History of carpal tunnel release both shoulders Social History Social History Smoking status: Never smoker Alcohol intake: current Drinks per week: 2 Substance use: current Substance use type: marijuana Other substance usage details: 15-20 pinch hits every day. Do You Feel Safe in your Home?: Yes Lack of Transportation: YES Lack of Food: Never True Current Housing: I Have Housing Concerned About Future Housing: No Difficulty Paying Gas/Electric Bills: No Difficulty Paying for Meds: No Currently Unemployed: YES Education: Trade/Vocational Certificate Difficulty w/ Childcare or Family Care: No Living arrangements: alone Spiritual care concerns: No Anes - Eval Final PreProcedure Day of Procedure 04/10/25 07:09 Patient weight: obese Lungs: normal air movement Airway: Mallampati scale class II Neurological: alert and oriented Last oral intake: >/= 8 hours ASA classification: II Emergent: no Anesthetic plan: proceed Anesthesia type and monitoring: general ETT and standard monitoring Results Review: All pre-operative results and documents have been reviewed as part of the pre-operative evaluation. HTN, BMI 31, pt reports cannabis use. Informed Consent: The patient's anesthetic plan and its attendant risks and benefits were discussed with the patient/family/POA. Questions were solicited and answers provided to the satisfaction of the patient/family/POA.
--- NOTE | 2025-04-10 07:17 | WPDHPUPDATE1 ---
History and Physical Update Update Date/Time: 04/10/25 07:17 History and Physical has been reviewed, including an updated exam of the patient. There are NO changes in the patient's condition. Risks, benefits, and alternatives have been discussed and questions answered. Patient agrees to proceed with procedure.
[2025-04-10] MEDS: ceFAZolin 2 GM in SODIUM CHLORIDE 0.9% IV 50 ML 100 ML IVPB (07:55)
--- NOTE | 2025-04-10 08:23 | WPDANESPNB ---
Anes - Peripheral Nerve Block Date/Time: 04/10/25 720 I have discussed with the patient/family/POA the placement of a peripheral nerve block for post-operative pain management, including associated risks, benefits, complications, and side effects. Alternative methods of post-operative analgesia were detailed. Questions were solicited and answers provided to the satisfaction of the patient/family/POA. Time-Out: A pre-procedural Time-Out was completed immediately before starting the procedure and confirmed: Patient Identification, Site, Procedure, Patient Position and the Availability of Requisite Equipment. Clinical Indications: Acute post-operative pain management requested by the operative surgeon. Nerve Block Insertion Note Anes-nerve block: interscalene right Patient position: supine Skin prep: chlorhexidine Needle: 22 gauge, stimulating, insulated echogenic needle. Needle length: 80 mm Technique: ultrasound Injectate: other (Bupiv 0.5 %, 20 mls. ) Observations: tolerated well Complications: none Procedure start time:: 720 Procedure end time:: 728
[2025-04-10] MEDS: fentaNYL CITRATE INJ (*CRX) 100 MCG/2 ML VIAL 25 MCG IV PUSH ×4 (10:19→10:26)
--- NOTE | 2025-04-10 15:56 | W.PM.PROC2 ---
Procedure Note - Detailed Date of Procedure 04/10/25 Pre-op Diagnosis rt.rotator cuff tear, chronic Post-op Diagnosis Other (Moderately large high-grade interstitial partial-thickness tear all Hernandez supraspinatus and infraspinatus tendons right shoulder) Procedure Performed Arthroscopy right shoulder with subacromial debridement and CA ligament release, mini open rotator cuff repair right shoulder Surgeon Romeo Simpson MD Thin Film Technician Russell Anesthesia General Description of Procedure Patient was brought to the operating room and general anesthesia was administered. He received weight based vancomycin 2 g of Ancef preoperatively. He was placed in the beach chair position head secured neutral alignment. SCDs were in place and running during the procedure. The left shoulder was prepped and draped with DuraPrep and I have band leaving the top portion of the shoulder without IO band initially. Standard posterior portal was placed and anterior superior portal placed. The articular surfaces looked normal. The upper edge of the subscapularis looked normal. The long head of the biceps look perfect. We retracted the biceps in the joint the portion in the groove look perfect as well. No evidence of biceps subluxation. The superior labrum was somewhat hypermobile but was not detached from the glenoid. Conservative trimming of the macerated inner margin of the superior labrum was performed. Remaining labrum was stable. The deep capsule of the supraspinatus was intact but we could see the capsule balloon upward away from the articular surface with absence of normal tension. There scope was placed in the subacromial space. CA ligament was present and they resection of CA ligament was carried out with the ArthroCare device. Minimal smoothing of the anterior acromion was performed but he did not need a formal acromioplasty. Limited debridement of the subacromial bursal tissue was performed. However, I could not appreciate a full-thickness tear of the supraspinatus tendon as I expected from the MRI scan. Remaining skin was covered with Ioban and outer gloves were changed and a 2 in longitudinal incision was made from the superior surface of the anterolateral acromion and the tendinous raphe between anterior and middle heads of the deltoid was incised for distance of 4 cm and 5 mm of the anterior insertion of the deltoid was released from acromion and self-retaining retractor placed. There was a 1 mm thick layer of bursal sided tissue at the insertion of the supraspinatus which had some tiny perforations in the and debriding this from the greater tuberosity opened us up to the exposed greater tuberosity that was devoid of any supraspinatus attachment to the capsule which was still intact. The infraspinatus had about a 1.5 or 2 mm thickness of the bursal portion of the tendon remaining. This also was released from the middle facet of the greater tuberosity leaving the posterior 6 or 7 mm still attached as we could debride the tuberosity underneath that. Of anterior middle facets of the greater tuberosity were thoroughly debrided scraping residual soft tissues attached with a 15 blade fresh and a 2 mm bur was used to make multiple bur holes adjacent to the articular surface for passage of sutures. There was mild retraction of the bulk of the supraspinatus and infraspinatus which mobilized easily. We did release bursal adhesions over the surface of the supraspinatus and infraspinatus with a blunt elevator. Mobilizing the portions of the infraspinatus and supraspinatus with normal thickness we passed sutures through the normal thickness portion of the tendon advancing this to the anterior and middle facets the greater tuberosity. A total of 7 simple sutures were pay placed through bone tunnels in a simple fashion in a converging pattern to give a smooth spherical contour to the supraspinatus and infraspinatus tendons without dog ear. The tear extended to few mm posterolateral to the lateral ridge of the bicipital groove. Rotator cuff interval was not involved.. Tissue seemed to be in good condition with very normal tendon integrity. We used for the 1.3 Evans suture tapes and 3 2. Ethibonds to complete the repair. The shoulder was taken through full range of motion there was no tension on the repair. The adequacy of the subacromial decompression was confirmed and the smoothness of the anterior aspect of the undersurface of the acromion verified. 2. Vicryl was placed through the anterior medial acromion repairing the 5 mm of deltoid released from the anterior acromion and this split closed with 2. Vicryl suture proximally in 0 Vicryl distally. Skin was closed with 2 subcu Vicryl case. Portal sites were closed with 3-0 subcutaneous Vicryl and glue. EBL was 20 cc. There were no complications he was transferred to postop recovery in a stable condition. [facility] Billing Surgery - Charge Forward: Surgery Billing (Arthroscopic subacromial debridement, mini open rotator cuff repair right shoulder.)
--- OUTSIDE RECORDS SUMMARY | 2025-04-10 16:08 | XMS_ITS | Encounter Summary ---
Author Organization [facility] Address On license of [facility] [place] [address] Care Team Providers Care Sales Porter Name Role Phone Areli Alarcon MD Primary Care Provider Encounter Details Date Type Department Care Team (Late st Contact Info) Description 08/19/2017 Abstract [facility] CONVERSION [address] [place] [address] , Generic Conversion, Social History Tobacco Use [...] on filedocumented in this encounter Care Teams Sales Porter Relationship Specialty Start Date End Date Areli Alarcon MD [address] [address] PCP - General INTERNAL MEDICINE 08/23/24 documented as of this encounter
--- OUTSIDE RECORDS SUMMARY | 2025-04-10 16:08 | XMS_ITS | Patient Health Record ---
Author Organization [facility] Address [address] [place] [address] Care Team Providers Care Grain Origination Specialist Name Role Phone Vicente Hirsch Unavailable [phone] Reason For Referral No Information Medications Medication SIG (Take, Route, Frequency, Duration) Notes Start Date End Date Status DULoxetine HCl 60 MG Capsule Delayed Release Particles Oral 01/12/2022 Active Colestipol HCl 1 GM Tablet Oral 01/12/2022 Active LUER-KRISTEN SYRINGE-NEEDLE 3 mL 22 gauge x 1 SYRINGE, EMPTY DISPOSABLE MISCELLANEOUS *Reorder from [employer] for eRx and Interaction Alerts* 01/12/2022 Active [...] Vaccine Route Administration Date Status Comme nts Influenza virus vaccine, quadrivalent (IIV4), split virus, 0.25 mL dosage Unknown 05/05/2018 Administered Influenza, seasonal, injecta ble, preservative free, 3 yrs and above Unknown 06/05/2012 Administered Influenza, seasonal, injecta ble, preservative free, 3 yrs and above Unknown 03/05/2014 Administered Novel [id number], preservative free Unknown 03/20/2017 Administered Novel [id number], preservative free Unknown 04/12/2018 Administered Pfizer Biontech Covid-19 Vac cine 2nd dose Unknown 02/13/2021 Administered Pfizer Biontech Covid-19 Vac cine 2nd dose Unknown 03/27/2021 Administered Pneumococcal polysaccharide PPV23 Unknown 06/05/2005 Ad ministered Td (adult), adsorbed Unknown 06/05/2004 Administered Tdap Unknown 08/03/2015 Administered Tdap Unknown 07/26/2018 Administered Tdap Unknown 03/06/2019 Administered Social History Social History Additional Details [...] Replacemen t/Advantag e - Hmo [address] [address] [place] [address] [id number] HOWIE DOHERTY Self - patient is the insured Medicaid-[place] l Medicaid [address] [address] [place] [address] [id number] HOWIE DOHERTY Self - patient is the insured Medical (General) History Surgical History Surgery Date(Month/Year) Appendectomy (06793) Tonsilectomy/adenoids Removal of gallbladder (60558) Sinus surgery
--- OUTSIDE RECORDS SUMMARY | 2025-04-10 16:08 | XMS_ITS | Encounter Summary ---
Author Organization [facility] Address [address] [place] [address] Phone Care Team Providers Care Office Service Coordinator Name Role Phone Valdemar Alcantara DONNIE Unavailable [phone] Hernandez Altman MD Primary Care Provider [phone] Doug Sanford Unavailable Rose Mckeon MD Unavailable [phone] Dilia Hansen MD Unavailable [phone] Marjorie Clark MD Unavailable Kavon Renee DPM Unavailable Unavailable Fer Chauhan MD Unavailable Blaise Peterson MD Unavailable [phone] Clayton Iyer PAC Unavailable [phone] Juliana Smith Unavailable [phone] Areli Alarcon MD Primary Care Provider Reason for Visit * Reason Comments Medication Refill Encounter Details Date Type Department Care Team (Late st Contact Info) Description 08/08/2023 [facility]ill [facility] - [place] #2 [place] [address] Rose Mckeon MD #2 [place] [address] Medication Refill Social History Tobacco Use Types [...] encounter Miscellaneous Notes * Telephone Encounter - eGla Pedro RN - 08/09/2023 9:26 AM CLERICAL ASSIGNER Pharmacy requesting refill of: Requested Prescriptions Pending [...] for 08/10/2023. Mesalamine order pended, please review. ICAL ASSIGNER documented in this encounter Plan of Treatment Upcoming Encounters Date Type Department Care Team (Latest Contact Info) Description 04/15/2025 10:15 AM CLERICAL ASSIGNER [facility] [address], [address] [place] [address] Romeo Simpson MD [address] [facility] [address] [place] [address] Meliton Duffy, PT [place] Discharge Disposition: Discharged to home or Selfcare 05/22/2025 8:45 AM CLERICAL ASSIGNER Office Visit [facility] - [place] #2 [place] [address] Marjorie Clark MD #[address] [address] 06/10/2025 8:30 AM CLERICAL ASSIGNER Office Visit [facility] - Neurology - [place] #2 [place] [address] Graciela Todd, SOLAR PHOTOVOLTAIC SYSTEMS ENGINEER, MAINTENANCE SERVICE DISPATCHER #2 [place] [address] documented as of this encounter Visit Diagnoses Diagnosis Crohn's disease of large intestine without complications documented in this encounter Additional Health Concerns Infection Onset Date Last Indicated Resolved Time C. difficile Rule-Out 08/11/2023 08/11/20232023 12:32 PM CLERICAL ASSIGNER Assessment Noted Time PHQ-9 Depression Total Score: 0 06/08/19 9:26 AM CLERICAL ASSIGNER documented as of this encounter Care Teams Office Service Coordinator Relationship Specialty Start Date End Date Hernandez Altman MD [address] [place] [address] PCP - General Internal Medicine 08/27/21 12/11/24 Areli Alarcon MD [address] [place] [address] PCP - General Internal Medicine 12/12/24 Valdemar Alcantara, SOLAR PHOTOVOLTAIC SYSTEMS ENGINEER [address] [place] [address] Nurse Practitioner Psychiatry 08/27/21 Doug Sanford [address] [address] Consulting Physician Endocrinology 08/27/21 Rose Mckeon MD #2 [place] [address] Consulting Physician Gastroenterology 08/27/21 Dilia Hansen MD #2 [place] [address] Consulting Physician Endocrinology 12/03/21 Marjorie Clark MD #[address] [phone] Consulting Physician Endocrinology 02/21/22 Kavon Renee DPAlexa Podiatry 12/15/21 Fer Chauhan MD [address] [place] [address] [place] [address] Consulting Physician Neurology 12/05/22 Blaise Peterson MD #[address] [address] Consulting Physician Urology 01/03/23 Clayton Iyer PAC #[address] [address] Physician Power Generation Turbine Room Operator Physician Power Generation Turbine Room Operator 01/24/24 Juliana Smith [address] [place], [place] [address] Nurse Practitioner Neurology 02/14/24 documented as of this encounter
--- OUTSIDE RECORDS SUMMARY | 2025-04-10 16:08 | XMS_ITS | Encounter Summary ---
Author Organization [facility] Address [address] [place] [address] Phone Care Team Providers Care Automotive Sales Associate Name Role Phone Valdemar Alcantara DONNIE Unavailable [phone] Hernandez Altman MD Primary Care Provider [phone] Doug Sanford Unavailable Rose Mckeon MD Unavailable [phone] Dilia Hansen MD Unavailable [phone] Marjorie Clark MD Unavailable Kavon Renee DPM Unavailable Unavailable Fer Chauhan MD Unavailable Blaise Peterson MD Unavailable [phone] Clayton Iyer PAC Unavailable [phone] Juliana Smith Unavailable [phone] Areli Alarcon MD Primary Care Provider Reason for Visit * Reason Comments Medication Refill Encounter Details Date Type Department Care Team (Late st Contact Info) Description 02/22/2022 Refill [facility] - [place] #2 [place] [address] Rose Mckeon MD #2 [place] [address] Medication Refill Social History Tobacco Use Types [...] (Latest Contact Info) Description 04/15/2025 10:15 AM SECURITY OPERATIONS ANALYST Physical Therapy [facility] at [facility] [address] [place] [address] Romeo Simpson MD [address] [facility] [address] [place] [address] Meliton [place], PT [place] Discharge Disposition: Discharged to home or Selfcare 05/22/2025 8:45 AM SECURITY OPERATIONS ANALYST Office Visit [facility] - [facility] - [place] #2 [facility] [address] Marjorie Clark MD #[address] [address] 06/10/2025 8:30 AM SECURITY OPERATIONS ANALYST [facility] [place] #2 [place] [address] Graciela Todd APRN, [facility] #2 [place] [address] documented as of this encounter Visit Diagnoses Diagnosis Chronic diarrhea Diarrhea documented in this encounter Additional Health Concerns Infection Onset Date Last Indicated Resolved Time C. difficile Rule-Out 03/22/2022 03/22/20222021 1:25 PM CDT C. difficile Rule-Out 08/11/2023 08/11/20232023 12:32 PM SECURITY OPERATIONS ANALYST Assessment Noted Time PHQ-9 Depression Total Score: 0 10/04/19 2:42 PM CDT documented as of this encounter Care Teams Automotive Sales Associate Relationship Specialty Start Date End Date Hernandez Altman MD [address] [place] [address] PCP - General Internal Medicine 08/27/21 12/11/24 Areli Alarcon MD [address] [place] [address] PCP - General Internal Medicine 12/12/24 Valdemar Alcantara APRN [address] [place] [address] Nurse Practitioner Psychiatry 08/27/21 Sanford Doug [address] [place] [address] Consulting Physician Endocrinology 08/27/21 Rose Mckeon MD #2 [place] [address] Consulting Physician Gastroenterology 08/27/21 Dilia Hansen MD #2 [place] [address] Consulting Physician Endocrinology 12/03/21 Marjorie Clark MD #2 [facility] [address] [place] [address] Consulting Physician Endocrinology 02/21/22 Kavon Renee DPAlexa Podiatry 12/15/21 Fer Chauhan MD [address] [place] [address] Consulting Physician Neurology 12/05/22 Blaise Peterson MD #2 [facility] [address] [place] [address] Consulting Physician Urology 01/03/23 Clayton Iyer PAC #2 [facility] [address] [place] [address] Physician Custodial Foreman Physician Custodial Foreman 01/24/24 Juliana Smith [address] [place] [address] Nurse Practitioner Neurology 02/14/24 documented as of this encounter
--- OUTSIDE RECORDS SUMMARY | 2025-04-10 16:08 | XMS_ITS | Encounter Summary ---
Author Organization [facility] Address [address] [place] [address] Phone Care Team Providers Care Acid Changer Name Role Phone Valdemar Alcantara DONNIE Unavailable [phone] Hernandez Altman MD Primary Care Provider [phone] Doug Sanford Unavailable Rose Mckeon MD Unavailable [phone] Dilia Hansen MD Unavailable [phone] Marjorie Clark MD Unavailable Kavon Renee DPM Unavailable Unavailable Fer Chauhan MD Unavailable Blaise Peterson MD Unavailable [phone] Clayton Iyer PAC Unavailable [phone] Juliana Smith Unavailable [phone] Areli Alarcon MD Primary Care Provider Reason for Visit * Reason Comments Medication Refill Encounter Details Date Type Department Care Team (Late st Contact Info) Description 01/26/2023 Refill [facility] - [place] #2 [place] [address] Rose Mckeon MD #2 [place] [address] Medication Refill Social History Tobacco Use Types [...] AM CDT Medication [facility] and [facility] medication standing order for pediatric and adult patients. documented in this encounter Plan of Treatment Upcoming Encounters Date Type Department Care Team (Latest Contact Info) Description 04/15/2025 10:[address] JUDGE Physical Therapy [facility] Rehab at [facility] [address] [address] Romeo Simpson MD [address] [facility] [address] [place] [address] Meliton [place], PT [place] Discharge Disposition: Discharged to home or Selfcare 05/22/2025 8:[address] JUDGE [facility] - [place] #2 [place] [address] Marjorie Clark MD #2 [facility] [address] [place] [address] 06/10/2025 8:[address] JUDGE [facility] [place] #2 [place] [address] Graciela Todd, COMMUNICATIONS SPECIALIST, TRAVEL RN [place] #2 [place] [address] documented as of this encounter Visit Diagnoses Diagnosis Chronic diarrhea Diarrhea documented in this encounter Additional Health Concerns Infection Onset Date Last Indicated Resolved Time C. difficile Rule-Out 08/11/2023 08/11/20232023 12:[address] JUDGE Assessment Noted Time PHQ-9 Depression Total Score: 3 12/06/19 23 10:00 AM CDT documented as of this encounter Care Teams Acid Changer Relationship Specialty Start Date End Date Hernandez Altman MD [address] [place] [address] PCP - General Internal Medicine 08/27/21 12/11/24 Areli Alarcon MD [address] [place] [address] PCP - General Internal Medicine 12/12/24 Valdemar Alcantara APRN [address] [place] [address] Nurse Practitioner Psychiatry 08/27/21 Doug Sanford [address] [address] Consulting Physician Endocrinology 08/27/21 Rose Mckeon MD #2 [place] [address] Consulting Physician Gastroenterology 08/27/21 Dilia Hansen MD #2 [place] [address] Consulting Physician Endocrinology 12/03/21 Marjorie Clark MD #2 [facility] [address] [place] [address] Consulting Physician Endocrinology 02/21/22 Kavon Renee DPAlexa Podiatry 12/15/21 Fer Chauhan MD [address] [facility] [place] [address] Consulting Physician Neurology 12/05/22 Blaise [address] MD #2 [facility] [address] [place] [address] Consulting Physician Urology 01/03/23 Clayton Iyer, GILMAR #2 [facility] [address] [place] [address] Physician Income Auditor Physician Income Auditor 01/24/24 Juliana Smith [address] [place], [place] [address] Nurse Practitioner Neurology 02/14/24 documented as of this encounter
--- OUTSIDE RECORDS SUMMARY | 2025-04-10 16:08 | XMS_ITS | Encounter Summary ---
Author Organization [facility] Address [address] [place] [address] Phone Care Team Providers Care Detective Chief Name Role Phone Romeo Joe MD Unavailable [phone] Jose Dang MD Primary Care Provider [phone] Valdemar Alcantara APRN Unavailable [phone] Hernandez Altman MD Primary Care Provider [phone] Doug Sanford Unavailable Doug Sanford Unavailable Rose Mckeon MD Unavailable [phone] Dilia Hansen MD Unavailable [phone] Marjorie Clark MD Unavailable Kavon Renee DPAlexa Unavailable Unavailable Fer Chauhan MD Unavailable [phone] Blaise Peterson MD Unavailable [phone] Clayton Iyer PAC Unavailable [phone] Juliana Smith Unavailable [phone] Areli Alarcon MD Primary Care Provider Reason for Visit * Reason Comments Medication Refill Encounter Details Date Type Department Care Team (Late st Contact Info) Description 12/14/2020 Refill [facility] - [place] #2 [place] [address] Yesenia Meza Angelina, PAC [address] [place] [address] Medication Refill Social History Tobacco Use Types [...] (Latest Contact Info) Description 04/15/2025 10:15 AM RETAIL LEASING AGENT Physical Therapy [facility] Rehab at [facility] 200 [facility], [address] [address] Romeo Simpson MD [address] [facility] [address] [place] [address] Meliton Duffy, PT [place] Discharge Disposition: Discharged to home or Selfcare 05/22/2025 8:45 AM RETAIL LEASING AGENT Office Visit [facility] - Endocrinology - [place] #2 [place] [address] Marjorie Clark MD #[address] [address] 06/10/2025 8:30 AM RETAIL LEASING AGENT Office Visit [facility] - [facility] - [place] #2 [place] [address] Graciela Todd, DONNIE, SHOP COORDINATOR #2 [place] [address] documented as of this encounter Visit Diagnoses Diagnosis Gastroesophageal reflux disease, unspecified whether esophagitis present documented in this encounter Additional Health Concerns Infection Onset Date Last Indicated Resolved Time C. difficile Rule-Out 03/22/2022 03/22/20222021 1:25 PM CDT C. difficile Rule-Out 08/11/2023 08/11/20232023 12:32 PM RETAIL LEASING AGENT Assessment Noted Time PHQ-9 Depression Total Score: 0 10/04/19 18 2:42 PM CDT documented as of this encounter Care Teams Detective Chief Relationship Specialty Start Date End Date Jose Dang MD [address] [place] [address] [place] [address] PCP - General Family Medicine 06/11/20 08/26/21 Hernandez Altman MD [address] [place] [address] PCP - General Internal Medicine 08/27/21 12/11/24 Areli Alarcon MD [address] [place] [address] PCP - General Internal Medicine 12/12/24 Romeo Joe MD General Surgery 06/25/15 08/26/21 Valdemar Alcantara, ROLLER ENGRAVER [address] [place] [address] Nurse Practitioner Psychiatry 08/27/21 Doug Sanford [address] [place] [address] Endocrinology 08/27/21 08/27/21 Doug Sanford [address] [facility] 204 [place] [address] Consulting Physician Endocrinology 08/27/21 Rose Mckeon MD #2 [place] [address] Consulting Physician Gastroenterology 08/27/21 Dilia Hansen MD #2 [place] [address] Consulting Physician Endocrinology 12/03/21 Marjorie Clark MD #[address] [address] Consulting Physician Endocrinology 02/21/22 Kavon Renee DPM Podiatry 12/15/21 Fer Chauhan MD [address] [facility] [address] [place] [address] Consulting Physician Neurology 12/05/22 Blaise Peterson MD #[address] [address] Consulting Physician Urology 01/03/23 Clayton Iyer PAC #2 [facility] 300 [place] [address] Physician Customer Quality Specialist Physician Customer Quality Specialist 01/24/24 Juliana Smith [address] [address] Nurse Practitioner Neurology 02/14/24 documented as of this encounter
--- OUTSIDE RECORDS SUMMARY | 2025-04-10 16:08 | XMS_ITS | Encounter Summary ---
Author Organization [facility] Address [address] [place] [address] Phone Care Team Providers Care Foamite Mixer Name Role Phone Valdemar Alcantara DONNIE Unavailable [phone] Hernandez Altman MD Primary Care Provider [phone] Doug Sanford Unavailable Rose Mckeon MD Unavailable [phone] Dilia Hansen MD Unavailable [phone] Marjorie Clark MD Unavailable Kavon Renee DPM Unavailable Unavailable Fer Chauhan MD Unavailable [phone] Blaise Peterson MD Unavailable [phone] Clayton Iyer PAC Unavailable Juliana Smith Unavailable [phone] Areli Alarcon MD Primary Care Provider Reason for Visit * Reason Comments Medication Refill Encounter Details Date Type Department Care Team (Late st Contact Info) Description 07/15/2023 Refill [facility] #2 [place] [address] Hernandez Altman MD [address] [place] [address] Medication Refill Social History Tobacco Use Types Packs/Day Years Used Date Smoking Tobacco: Never Smokeless Tobacco: Never Alcohol Use Standard Drinks/Week Comments Not Currently 3 (1 standard drink = 0.6 oz pur e alcohol) PHQ-2 Answer Date Recorded Total Score - Questions 1-9 0 0 09/2023 Sexually Active Control Partners Comments [...] RMA for the following reason: Dose adjustment. IC PUMP TRUCK DRIVER documented in this encounter Plan of Treatment Upcoming Encounters Date Type Department Care Team (Latest Contact Info) Description 04/15/2025 10:15 AM SEPTIC PUMP TRUCK DRIVER [facility] [address] [address] Romeo Simpson MD [address] [facility] [address] [place] [address] Meliton Duffy, PT [place] Discharge Disposition: Discharged to home or Selfcare 05/22/2025 8:45 AM SEPTIC PUMP TRUCK DRIVER [facility] - [place] #2 [place] [address] Majrorie Clark MD #[address] [address] 06/10/2025 8:30 AM SEPTIC PUMP TRUCK DRIVER [facility] - Neurology - [place] #2 [place] [address] Graciela Todd, TRUCKLOAD OWNER OPERATOR, RADIO BOARD OPERATOR ANNOUNCER #2 [place] [address] documented as of this encounter Visit Diagnoses Not on filedocumented in this encounter Additional Health Concerns Infection Onset Date Last Indicated Resolved Time C. difficile Rule-Out 08/11/2023 08/11/20232023 12:32 PM SEPTIC PUMP TRUCK DRIVER Assessment Noted Time PHQ-9 Depression Total Score: 0 06/08/19 9:26 AM SEPTIC PUMP TRUCK DRIVER documented as of this encounter Care Teams Foamite Mixer Relationship Specialty Start Date End Date Hernandez Altman MD [address] [place] [address] PCP - General Internal Medicine 08/27/21 12/11/24 Areli Alarcon MD [address] [place] [address] PCP - General Internal Medicine 12/12/24 Valdemar Alcantara APRN [address] [place] [address] Nurse Practitioner Psychiatry 08/27/21 Doug Sanford [address] [address] Consulting Physician Endocrinology 08/27/21 Rose Mckeon MD #2 [place] [address] Consulting Physician Gastroenterology 08/27/21 Dilia Hansen MD #2 [place] [address] Consulting Physician Endocrinology 12/03/21 Marjorie Clark MD #2 [facility] [address] [place] [address] Consulting Physician Endocrinology 02/21/22 Kavon Renee, DPM Podiatry 12/15/21 Fer Chauhan MD [address] [facility] [place] [address] Consulting Physician Neurology 12/05/22 Blaise [address] MD #2 [facility] [place] 300 [place] [address] Consulting Physician Urology 01/03/23 Clayton Iyer, PAC #2 [facility] [place] [address] [place] [address] Physician Crop And Soil Technician Physician Crop And Soil Technician 01/24/[address] [facility] [address] [place] [address] Nurse Practitioner Neurology 02/14/24 documented as of this encounter
--- OUTSIDE RECORDS SUMMARY | 2025-04-10 16:08 | XMS_ITS | Encounter Summary ---
Author Organization [facility] Address [address] [place] [address] Phone Care Team Providers Care Store Loss Prevention Manager Name Role Phone Valdemar Alcantara DONNIE Unavailable Hernandez Altman MD Primary Care Provider [phone] Doug Sanford Unavailable Rose Mckeon MD Unavailable [phone] Dilia Hansen MD Unavailable [phone] Marjorie Clark MD Unavailable Kavon Renee DPM Unavailable Unavailable Fer Chauhan MD Unavailable [phone] Blaise Peterson MD Unavailable [phone] Clayton Iyer PAC Unavailable [phone] Juliana Smith Unavailable [phone] Areli Alarcon MD Primary Care Provider Reason for Visit * Reason Comments Medication Refill Encounter Details Date Type Department Care Team (Late st Contact Info) Description 07/20/2023 Refill [facility] - [place] #2 [place] [address] Rose Mckeon MD #2 [place] [address] Medication Refill Social History Tobacco Use Types [...] Gela Pedro RN - 07/20/2023 9:48 AM OTOLARYNGOLOGY PHYSICIAN Medication refilled and signed per [facility] chronic medication standing order for pediatric and adult patients. ARYNGOLOGY PHYSICIAN documented in this encounter Plan of Treatment Upcoming Encounters Date Type Department Care Team (Latest Contact Info) Description 04/15/2025 10:15 AM OTOLARYNGOLOGY PHYSICIAN Physical Therapy [facility] Rehab at [facility] 200 [facility], [address] [address] Romeo Simpson MD [address] [facility] 159 [place] [address] Meliton Duffy, PT [place] Discharge Disposition: Discharged to home or Selfcare 05/22/2025 8:45 AM OTOLARYNGOLOGY PHYSICIAN Office Visit [facility] - Endocrinology - [place] #2 [place] [address] Marjorie Clark MD #[address] [address] 06/10/2025 8:30 AM OTOLARYNGOLOGY PHYSICIAN Office Visit [facility] - Neurology - [place] #2 [place] [address] Graciela Todd APRN, SENIOR TECHNICAL RECRUITER #2 [place] [address] documented as of this encounter Visit Diagnoses Diagnosis Chronic diarrhea Diarrhea documented in this encounter Additional Health Concerns Infection Onset Date Last Indicated Resolved Time C. difficile Rule-Out 08/11/2023 08/11/20232023 12:32 PM OTOLARYNGOLOGY PHYSICIAN Assessment Noted Time PHQ-9 Depression Total Score: 0 06/08/19 9:26 AM OTOLARYNGOLOGY PHYSICIAN documented as of this encounter Care Teams Store Loss Prevention Manager Relationship Specialty Start Date End Date Hernandez Altman MD [address] [place] [address] PCP - General Internal Medicine 08/27/21 12/11/24 Areli Alarcon MD [address] [place] [address] PCP - General Internal Medicine 12/12/24 Valdemar Alcantara APRN [address] [place] [address] Nurse Practitioner Psychiatry 08/27/21 Doug Sanford [address] [address] Consulting Physician Endocrinology 08/27/21 Rose Mckeon MD #2 [place] [address] Consulting Physician Gastroenterology 08/27/21 Dilia Hansen MD #2 [place] [address] Consulting Physician Endocrinology 12/03/21 Marjorie Clark MD #2 [facility] [address] [place] [address] Consulting Physician Endocrinology 02/21/22 Kavon Renee DPAlexa Podiatry 12/15/21 Fer Chauhan MD [address] [facility]. [address] [place] [address] Consulting Physician Neurology 12/05/22 Blaise Peterson MD #2 [facility] 300 [place] [address] Consulting Physician Urology 01/03/23 Clayton Iyer, PAC #2 [facility] 300 [place] [address] Physician Display Artist Physician Display Artist 01/24/24 Juliana Smith [address] [facility] [address] [place] [address] Nurse Practitioner Neurology 02/14/24 documented as of this encounter
--- OUTSIDE RECORDS SUMMARY | 2025-04-10 16:08 | XMS_ITS | Encounter Summary ---
Author Organization [facility] Address [address] [place] [address] Phone Care Team Providers Care Deckhand Name Role Phone Valdemar Alcantara DONNIE Unavailable Hernandez Altman MD Primary Care Provider [phone] Doug Sanford Unavailable Rose Mckeon MD Unavailable [phone] Dilia Hansen MD Unavailable [phone] Marjorie Clark MD Unavailable Kavon Renee DPM Unavailable Unavailable Fer Chauhan MD Unavailable Blaise Peterson MD Unavailable [phone] Clayton Iyer PAC Unavailable [phone] Juliana Smith Unavailable [phone] Areli Alarcon MD Primary Care Provider Reason for Visit * Reason Comments Medication Refill Encounter Details Date Type Department Care Team (Late st Contact Info) Description 12/05/2022 [facility]ill [facility] - Endocr[facility]ology - [place] [address] [place] [address] Marjorie Clark MD #[address] [address] Medication Refill Social History Tobacco Use Types [...] (Latest Contact Info) Description 04/15/2025 10:15 AM CONSERVATION PLANNER Physical Therapy [facility] [address], [address] [place] [address] Romeo Simpson MD [address] [facility] [address] [place] [address] Meliton Duffy, PT [place] Discharge Disposition: Discharged to home or Selfcare 05/22/2025 8:45 AM CONSERVATION PLANNER Office Visit [facility] - Endocrinology - [place] [address] [place] [address] Marjorie Clark MD #2 [facility] [address] [place] [address] 06/10/2025 8:30 AM CONSERVATION PLANNER Office Visit [facility] - Neurology - [place] [address] [place] [address] Graciela Todd, VETERINARY LABORATORY DIAGNOSTICIAN, LABORATORY MANAGER #2 [place] [address] documented as of this encounter Visit Diagnoses Diagnosis Male hypogonadism Other testicular hypofunction documented in this encounter Additional Health Concerns Infection Onset Date Last Indicated Resolved Time C. difficile Rule-Out 08/11/2023 08/11/20232023 12:32 PM CONSERVATION PLANNER Assessment Noted Time PHQ-9 Depression Total Score: 3 12/06/19 23 10:00 AM CDT documented as of this encounter Care Teams Deckhand Relationship Specialty Start Date End Date Hernandez Altman MD [address] [place] [address] PCP - General Internal Medicine 08/27/21 12/11/24 Areli Alarcon MD [address] [place] [address] PCP - General Internal Medicine 12/12/24 Valdemar Alcantara APRN [address] [place] [address] Nurse Practitioner Psychiatry 08/27/21 Doug Sanford [address] [facility] [address] [place] [address] Consulting Physician Endocrinology 08/27/21 Rose Mckeon MD #2 [place] [address] Consulting Physician Gastroenterology 08/27/21 Dilia Hansen MD #2 [place] [address] Consulting Physician Endocrinology 12/03/21 Marjorie Clark MD #2 [facility] [address] [place] [address] Consulting Physician Endocrinology 02/21/22 Kavon Renee DPM Podiatry 12/15/21 Fer Chauhan MD [address] [facility] [place] [address] Consulting Physician Neurology 12/05/22 Blaise Peterson MD #2 [facility] [address] [place] [address] Consulting Physician Urology 01/03/23 Clayton Iyer PAC #[address] [facility] [address] [place] [address] Physician Electrical Installation Inspector Physician Electrical Installation Inspector 01/24/24 Juliana Smith [address] [address] Nurse Practitioner Neurology 02/14/24 documented as of this encounter
--- OUTSIDE RECORDS SUMMARY | 2025-04-10 16:08 | XMS_ITS | Clinical Summary ---
Author Organization [facility] Address [address] [place] [address] Care Team Providers Care Aviation Maintenance Technician Name Role Phone Areli Alarcon MD Primary Care Provider Allergies Active Allergy Reactions Criticality Noted Date Comments Ibuprofen Nausea Only Low 09/15/2023 Nabumetone Eyes Water & Itch,Hallucinations,Oth er (see comment) Medium 05/25/2010 Seeing Red dots Seeing Red dots Sulfa Antibiotics Other (see comment) 5 Sweats Medications allopurinol (ZYLOPRIM) 100 MG tablet [...] 50+ Years Completed 06/07/2022, 06/05/2005 PHQ-2 (Physician [place]) Completed 08/28/2024 Meningococcal B Vaccine Aged Out No l onger eligible based on patient's age to complete this topic Meningococcal Vaccine Aged Out No aparna nicho eligible based on patient's age to complete this topic RSV Immunizations Under 20 Months Aged Out No longer eligible based on patient's age to complete this topic Insurance [facility] MEDICARE MEDICAID Care Teams Aviation Maintenance Technician Relationship Specialty Start Date End Date Areli Alarcon MD [address] [place] [id number] PCP - General INTERNAL MEDICINE 08/23/24
--- OUTSIDE RECORDS SUMMARY | 2025-04-10 16:08 | XMS_ITS | Clinical Summary ---
Author Organization [facility] [address] Address [address] [place] [address] Phone Care Team Providers Care Substation Operator Helper Generation Name Role Phone Hernandez Altman MD Primary [...] - 01/16/2025 11:59 PM CDT Hospital Encounter [facility] [address] [place] [address] Rad, Amh Fluoro Unilateral primary osteoarthritis, left [...] L1, L2, L3. in the past.; Comments: [facility] 07/11/2016 - Hx Other Medical Bladder stimula tor.; Comments: [facility] 07/11/2016 - Hx Other Medical Bilateral shoul arlen surgery x 2 in the past.; Comments: [facility] 07/11/2016 - Hx Other Medical Bilateral foot surgery x 2 in the past.; Comments: [facility] 07/11/2016 - Hx Other Medical 07-20-16 Right l ateral epicondylar release/left ind; Comments: [facility] 08/03/2016 - Hypertension Hypercholesteremia Gastric reflux Peptic [...] on file Legal Sex Male 10:37 AM SECURITY INCIDENT HANDLER Gender Identity Not on file Sexual Orientation [...] 11/26/2019, 10/10/2013 Medical Devices Implanted Type Area Cost Recovery Technician Device Identifier Shelf Expiration Date Model / Serial / Lot Neurostimulator Bladder-06/16/2023 Implanted: 024 by Blaise Peterson MD (Quantity not on file) Neurostimulator Pelvis Medtronic Neuro [id number] / / Neurostimulator Bladder Lead-06/16/2023 Implanted: 024 by Blaise Peterson MD (Quantity not on file) Neurostimulator Pelvis Medtronic Neuro [id number] / / Procedures Procedure Name Priority Date/Time Associated Diagnosis Comments FL FLUORO GUIDED INJECTION HIP LEFT Schedule Routine, Read Routine (OP Routine) 01/16/2025 9:00 AM CDT Unilateral primary osteoarthritis, left hip from Last 3 Months Results * FL Fluoro Guided Injection Hip Left (01/16/2025 9:00 AM CDT) Anatomical Region Laterality Modality Hip Left Radio Fluoroscop y 01/16/2025 9:50 AM CDT Narrative 01/16/2025 9:51 AM CDT [...] Ramsey Basilio M.D. NS: NS Report ID: [id number] Reading Location: [id number] Procedure Note Ramsey Basilio MD - 01/16/2025 [...] Ramsey Basilio M.D. NS: NS Report ID: [id number] Reading Location: [place] [address] Mina Bright MD IMG FLUOROSCOPY PROCEDURES Fi nal Result from Last 3 Months Insurance MEDICARE [facility] MEDICA[facility] MEDICARE MEDICARE [facility] [employer] MEDICAID MMAI [employer] GOLD [facility] MMAI Care Teams Substation Operator Helper Generation Relationship Specialty Start Date End Date Hernandez Altman MD [address] [address] PCP - General Internal Medicine 02/01/24
--- OUTSIDE RECORDS SUMMARY | 2025-04-10 16:08 | XMS_ITS | Encounter Summary ---
Author Organization [facility] Address [address] [place] [address] Phone Care Team Providers Care Home Care Scheduler Name Role Phone Valdemar Alcantara DONNIE Unavailable Hernandez Altman MD Primary Care Provider [phone] Doug Sanford Unavailable Rose Mckeon MD Unavailable [phone] Dilia Hansen MD Unavailable [phone] Marjorie Clark MD Unavailable Kavon Renee DPM Unavailable Unavailable Fer Chauhan MD Unavailable [phone] Blaise Peterson MD Unavailable [phone] Clayton Iyer PAC Unavailable [phone] Juliana Smtih Unavailable [phone] Areli Alarcon MD Primary Care Provider Reason for Visit * Reason Comments Medication Refill Encounter Details Date Type Department Care Team (Late st Contact Info) Description 06/19/2022 Refill [facility] - Gastroenterology - [place] [address] [place] [address] Rose Mckeon MD [address] [place] [address] Medication Refill Social History Tobacco Use Types [...] Coronavirus/COVID-19? No / Unsure 06/17/2022 9:02 AM CLOTH DYE RANGE OPERATOR documented as of this encounter Miscellaneous Notes [...] Dept 06/07/22 Office Visit Hernandez Altman MD [facility] [place] [facility] 03/22/22 Office Visit Blanca Adler APRN, Z[facility] [place] [facility] 12/03/21 Office Visit Hernandez Altman MD [facility] [place] [facility] 08/27/21 Office Visit Hernandez Altman MD [facility] [place] [facility] Showing recent visits within past 365 [...] Range Status 12/07/2021 129.3 <130 mg/dL Final H DYE RANGE OPERATOR documented in this encounter Plan of Treatment Upcoming Encounters Date Type Department Care Team (Latest Contact Info) Description 04/15/2025 10:15 AM CLOTH DYE RANGE OPERATOR Physical Therapy [facility] at [facility] [address] [facility], [facility] [address] [place] [address] Romeo Simpson MD [address] [facility] [address] [place] [address] Meliton Duffy, PT [place] Discharge Disposition: Discharged to home or Selfcare 05/22/2025 8:45 AM CLOTH DYE RANGE OPERATOR Office Visit [facility] - Endocrinology - [place] [address] [place] [address] Marjorie Clark MD #[address] [address] 06/10/2025 8:30 AM CLOTH DYE RANGE OPERATOR Office Visit [facility] - Neurology - [place] [address] [place] [address] Graciela Todd APRN, GENETICS PHYSICIAN [address] [place] [address] documented as of this encounter Visit Diagnoses Diagnosis Chronic diarrhea Diarrhea documented in this encounter Additional Health Concerns Infection Onset Date Last Indicated Resolved Time C. difficile Rule-Out 08/11/2023 08/11/20232023 12:32 PM CLOTH DYE RANGE OPERATOR Assessment Noted Time PHQ-9 Depression Total Score: 0 10/04/19 18 2:42 PM CDT documented as of this encounter Care Teams Home Care Scheduler Relationship Specialty Start Date End Date Hernandez Altman MD [address] [place] [address] PCP - General Internal Medicine 08/27/21 12/11/24 Arlei Alarcon MD [address] [place] [address] PCP - General Internal Medicine 12/12/24 Valdemar Alcantara APRN [address] [facility] [address] [place] [address] Nurse Practitioner Psychiatry 08/27/21 Doug Sanford [address] [address] Consulting Physician Endocrinology 08/27/21 Rose Mckeon MD #2 [place] [address] Consulting Physician Gastroenterology 08/27/21 Dilia Hansen MD #[address] [place] [address] Consulting Physician Endocrinology 12/03/21 Marjorie Clark MD #[address] [address] Consulting Physician Endocrinology 02/21/22 ThelmaKavon aquino DPM Podiatry 12/15/21 Fer Chauhan MD [address] [facility] [place] [address] Consulting Physician Neurology 12/05/22 Blaise Peterson MD #[address] [address] Consulting Physician Urology 01/03/23 Clayton Iyer PAC #[address] [address] Physician Ncr Operator Physician Ncr Operator 01/24/24 Juliana Smith [address] [facility] [address] [place] [address] Nurse Practitioner Neurology 02/14/24 documented as of this encounter
--- OUTSIDE RECORDS SUMMARY | 2025-04-10 16:09 | XMS_ITS | Encounter Summary ---
Author Organization [facility] Address [address] [place] [address] Care Team Providers Care Cutting Machine Fixer Name Role Phone Hernandez Altman MD Primary Care Provider [phone] Encounter Details Date Type Department Care Team (Late st Contact Info) Description 02/28/2023 Ophth Exam [facility] - Ophthalmology [address] [place] [address] Lori Lemus DO [address] [place] [id number] Social History Tobacco Use Types Packs/Day Years [...] and heating? Not hard at all 03/01/2023 [facility] [place] of Occupat ional Health - Occupational Stress [...] place to sleep or slept in a mcc (including now)? No 03/01/2023 Sex and Gender Information Value Date Recorded Sex Assigned at Not on file Legal Sex Male 6:01 AM QUILL CLEANING MACHINE OPERATOR Gender Identity Not on file Sexual Orientation [...] doing errands alone? No 03/01/2023 12:30 AM Enedia Strickland RN Does person have difficulty concentrating/remembering/making [...] on filedocumented in this encounter Care Teams Cutting Machine Fixer Relationship Specialty Start Date End Date Hernandez Altman MD [address] [place] [address] PCP - General Internal Medicine 08/27/21 08/08/24 documented as of this encounter
--- OUTSIDE RECORDS SUMMARY | 2025-04-10 16:09 | XMS_ITS | Clinical Summary ---
Author Organization [facility] Address [address] [address] Phone Care Team Providers Care Floor Plan Adjuster Name Role Phone Quinton Valdemar Rao APRN Unavailable [phone] Doug Sanford Unavailable Rose Mckeon MD Unavailable [phone] Dilia Hansen MD Unavailable [phone] Marjorie Clark MD Unavailable Kavon Renee DPM Unavailable Unavailable Fer Chauhan MD Unavailable Blaise Peterson MD Unavailable [phone] Clayton Iyer PAC Unavailable [phone] Juliana Smith Unavailable [phone] Areli Alarcon MD Primary Care Provider [...] pain 10/02/2018 09/15/2023 History of foot surgery 10/02/2018/0 09/2023 Hyperglycemia 10/02/2018 06/08/2023 Chronic narcotic use 08/03/2018 022 Right Achilles tendinitis 04/27/2018 Right Achilles tendinitis 04/27/2018 Fatigue 01/03/2018 08/27/2021 Chronic joint pain 10/03/2017 Low testosterone 12/01/2015 06/07/2022 Epidermoid cyst 07/23/2015 08/27/2021 Neoplasm of skin 07/23/2015 06/08/2023 Primary gout 06/18/2015 08/27/2021 Pituitary neoplasm 10/15/2013 3 Overview (08/27/2021): Pituitary tumor Encounters Date Type Department Care Team Description 04/08/2025 Transcribe Orders [facility] [address] [place] [phone] Romeo Simpson MD Complete tear of right rotator cuff, unspecified whether traumatic (Primary Dx) 03/31/2025 Results Follow-Up [facility] Medical [facility] - Endocrinology - [place] [address] [place] [phone] Marjorie Clark MD CMP (COMPREHENSIVE METABOLIC PANEL), PSA SCREEN, LIPID PANEL, Additional followed-up results: 2 03/24/2025 Results Follow-Up [facility] - Neurology - [place] [address] [place] [address] Graciela Todd APRN, CARTON FOLDER VITAMIN B12 03/24/2025 Travel 02/26/2025 Telephone [facility] - Neurology - [place] [address] [place] [phone] Graciela Todd APRN, CARTON FOLDER 02/25/2025 3:00 PM CDT Office Visit [facility]SH. [facility] - Neurology - [place] [address] [place] [address] Graciela Todd APRN, CARTON FOLDER Intractable chronic migraine with aura with status migrainosus (Primary Dx) Discharge Disposition: Discharged to home or Selfcare 02/25/2025 Travel 02/25/20[facility] [place] [address] [place] [address] Marjorie Clark MD Medication Refill 02/21/2025 Refill [facility] - Primary Care - [place] [address] [place] [phone] Hernandez Altman MD Medication Refill from Last [...] Valent 6 Pneumococcal conjugate PCV20 , polysaccharide [id number] conjugate, adjuvant, PF 06/07/2022 TD VACCINE 06/05/2004 [...] drink = 0.6 oz pur e alcohol) [facility] Utilities Answer Date Recorded In the [...] declined 09/06/2023 How often do you attend congregation or rastafari serv ices? Patient declined 09/06/2023 Do you belong to any clubs o r organizations such as congregation groups, unions, fraternal or athletic groups, or [...] Total Score - Questions 1-9 0 09/2023 [facility] - Occupational [...] or slept in a mcc (including now)? Patient declined 09/06/2023 Sexually Active [...] (Latest Contact Info) Description 04/15/2025 10:15 AM PHOTOGRAPHER AERIAL Physical Therapy [facility] [address], [address] [place] [phone] Romeo Simpson MD [address] [facility] [address] [address] [place] [address] Meliton Duffy, [place] Discharge Disposition: Discharged to home or Selfcare 05/22/2025 8:45 AM PHOTOGRAPHER AERIAL Office Visit [facility] Medical [facility] - Endocrinology - [place] [address] [place] [address] Marjorie Clark MD [address]2 [facility] [address] [place] [address] 06/10/2025 8:30 AM PHOTOGRAPHER AERIAL Office Visit [facility]. [facility] - Neurology - [place] [address] [place] [address] Graciela Todd APRN, CARTON FOLDER [address] [place] [address] Health Maintenance Due Date Last Done Comments Hepatitis B Immunization (1 of 3 - 19+ 3-dose series) 1993 Medicare Initial AWV G0438 04/05/2001 Cologuard 11/09/2019 Immunochemical Fecal Occult Blood 11/09/2019 Respiratory Syncytial Virus (RSV) Immunization (Adult) (1 - Risk 50-74 years 1-dose series) 2024 Zoster Immunization (1 of 2) 2024 Influenza Immunization (#1) 02/03/202505/05, 03/21/2023, 03/22/2022, Additional history exists SARS-COV-2 Immunization ( season) 2025 06/07/2022, 03/27/2021, 02/13/2021 Td Immunization Every 10 Years (Adults With 1 Tdap) 03/06/2029 03/06/2019, 07/26/2018, 08/03/2015, Additional history exists Colonoscopy 07/08/2029 07/08/2024, 08/2024, 10/19/2022, Additional history exists Colorectal Cancer [...] this topic Medical Devices Implanted Type Area Tax Staff Accountant Device Identifier Shelf Expiration Date Model / Serial / Lot Lead Neurostimulation Interstim Ssmri 4.32mm Eman Us Full Body - [id number] Implanted:Qty: 1 on 06/09/2023 by Blaise Peterson MD at [facility] IMPLANT Right: Back Medtronic Neuromodulation 01/09/2025 [id number] / [id number] / [id number] Description:Medtronic Inters elizabeth Surescan MRI lead kit Kit d'electrode SureScan MRI Sacral neuromodulation 28cm length Neurostimulator Sacral Interstim X Non Rechargeable Surescan Mri - [id number] Implanted:Qty: 1 on 06/16/2023 by [facility] at [facility] IMPLANT Medtronic Neuromodulation 09/16/2024 [id number] / [id number] / [id number] 3H [place] Suture Koppel Implanted:Qty: 2 on 04/27/2018 by Zi Mahan DPM at [facility] Right: Leg [employer] 03/01/2023 [id number] / [id number] / [id number] Explanted Type Area Tax Staff Accountant Device Identifier Shelf Expiration Date Model / Serial / Lot Bladder Stimulator-2012 Implanted:2012 (Quantity not on file) Explanted:Qty: 1 on 01/13/2023 by Blaise Peterson MD at [facility] Sacrum MEDTRONIC [id number] / / Description:EXPLANTS ALL [...] in adult HM COLONOSCOPY 07/08/2024 12:00 AM PHOTOGRAPHER AERIAL HEPATITIS C RNA QUANT PCR VIRAL LOAD Routine 10/23/2018 3:44 PM CDT Chronic hepatitis C without hepatic coma (HCC) from Last 3 Months or Most Recently Relevant to Health Maintenance Results * ACTIN (F-ACTIN) ANTIBODY (SMOOTH MUSCLE AB), IGG, SERUM (03/24/2025 11:05 AM CDT) F-ACTIN 8.1 <20.0 03/26/2025 11:47 AM CDT [facility] Comment: <20.0 Negative 20.0-30.0 Weak Positive >30.0 Moderate to Strong Positive Blood Venipuncture / Unknown 03/24/2025 11:05 AM CDT 03/24/2025 12:07 PM CDT Narrative [facility] - 03/26/2025 11:47 AM CDT Performed by enzyme-linked immunosorbent assay (SARAH). us Not On File Provider IMMUNOLOGY ORDERABLES Final Result Performing Organization Address City/[facility]/ZIP Co de Phone Number [facility] [address] [place] [address], [place] * (ABNORMAL) TESTOSTERONE (03/24/2025 11:05 AM CDT) TESTOSTERONE, TOTAL 74(L) 221 - 716 ng/dL 03/25/2025 12:15 AM CDT [facility] Blood Venipuncture / Unknown 03/24/2025 11:05 AM CDT 03/24/2025 12:06 PM CDT us Marjorie Clark MD CHEMISTRY ORDERABLES Final Resul t Performing Organization Address [facility]/ZIP Co de Phone Number [facility] [address] [place] [address], [place] * HEPATITIS B CORE TOTAL ANTIBODY (03/24/2025 11:05 AM CDT) Pathologist [facility] HEP B CORE TOTAL (IGM, IGG) BKR NON DETECTED NON DETECTED 03/25/2025 12:03 AM CDT [facility] Blood Venipuncture / Unknown 03/24/2025 11:05 AM CDT 03/24/2025 12:08 PM CDT us Not On File Provider CHEMISTRY ORDERABLES Final Result Performing Organization Address City/[facility]/ZIP Co de Phone Number [facility] [address] [place] [address], [place] * IMMUNOGLOBULIN A (IGA) - CELIAC (03/24/2025 11:05 AM CDT) IMMUNOGLOBULIN A 400 63 - 484 mg/dL 03/24/2025 10:06 PM CDT [facility] Blood Venipuncture / Unknown 03/24/2025 11:05 AM CDT 03/24/2025 12:07 PM CDT us Not On File Provider IMMUNOLOGY ORDERABLES Final Result [facility] [address] [place] [address], [place] * GLIADIN IGA ANTIBODY - CELIAC (03/24/2025 11:05 AM CDT) DEAMIDATED GLIADIN IGA 3.4 <15.0 U/mL 03/28/2025 1:43 PM CDT [facility] Blood Venipuncture / Unknown 03/24/2025 11:05 AM CDT 03/24/2025 12:07 PM CDT Narrative [facility] - 03/28/2025 1:43 PM CDT Antibody testing was performed by multiplex flow immunoassay on the BioPlex platform. us Not On File Provider IMMUNOLOGY ORDERABLES Final Result Performing Organization Address City/[facility]/ZIP Co de Phone Number [facility] [address] [place] [address], [place] * TISSUE TRANSGLUTAMINASE IGA - CELIAC (03/24/2025 11:05 AM CDT) TTG IGA <0.5 <15.0 U/mL 03/28/2025 1:43 PM CDT [facility] Blood Venipuncture / Unknown 03/24/2025 11:05 AM CDT 03/24/2025 12:07 PM CDT Narrative [facility] - 03/28/2025 1:43 PM CDT Antibody testing was performed by multiplex flow immunoassay on the BioPlex platform. us Not On File Provider IMMUNOLOGY ORDERABLES Final Result [facility] [address] [place] [address], [place] * (ABNORMAL) CBC WITH AUTO DIFFERENTIAL (03/24/2025 11:05 AM CDT) [facility] WBC 8.55 4.00 - 12.00 10(3)/mcL 03/24/2025 12:22 PM CDT [facility] RBC 5.66 4.40 - 5.80 10(6)/mcL 03/24/2025 12:22 PM CDT [facility] HEMOGLOBIN (HGB) 17.5(H) 13.0 - 16.5 g/dL 03/24/2025 12:22 PM CDT [facility] HEMATOCRIT (HCT) 51.0(H) 38.0 - 50.0 % 03/24/2025 12:22 PM CDT [facility] MCV 90.1 82.0 - 96.0 fL 03/24/2025 12:22 PM CDT [facility] MCH 30.9 26.0 - 32.0 pg 03/24/2025 12:22 PM CDT [facility] MCHC 34.3 31.0 - 36.0 g/dL 03/24/2025 12:22 PM CDT [facility] PLATELET COUNT 262 140 - 440 10(3)/mcL 03/24/2025 12:22 PM CDT [facility] RDW 12.1 11.8 - 15.5 % 03/24/2025 12:22 PM CDT [facility] MPV 10.1 8.0 - 12.6 fL 03/24/2025 12:22 PM CDT [facility] NEUTROPHILS 71.8(H) 40.0 - 68.0 % 03/24/2025 12:22 PM CDT [facility] LYMPHOCYTES 21.3 19.0 - 49.0 % 03/24/2025 12:22 PM CDT [facility] MONOCYTES 5.5 3.0 - 13.0 % 03/24/2025 12:22 PM CDT [facility] EOSINOPHILS 0.4 0.0 - 8.0 % 03/24/2025 12:22 PM CDT [facility] BASOPHILS 0.5 0.0 - 1.0 % 03/24/2025 12:22 PM CDT [facility] IMMATURE GRANULOCYTE 0.5(H) 0.0 - 0.4 % 03/24/2025 12:22 PM CDT [facility] Comment:Immature Granulocyte s includes Metamyelocytes, Myelocytes, and Promyelocytes. ABSOLUTE NEUTROPHILS 6.15(H) 1.40 - 5.30 10(3)/mcL 03/24/2025 12:22 PM CDT [facility] ABSOLUTE LYMPHOCYTES 1.82 0.90 - 3.30 10(3)/mcL 03/24/2025 12:22 PM CDT [facility] ABSOLUTE MONOCYTES 0.47 0.10 - 0.90 10(3)/mcL 03/24/2025 12:22 PM CDT [facility] ABSOLUTE EOSINOPHIL 0.03 0.00 - 0.50 10(3)/mcL 03/24/2025 12:22 PM CDT [facility] ABSOLUTE BASOPHILS 0.04 0.00 - 0.10 10(3)/mcL 03/24/2025 12:22 PM CDT [facility] ABSOLUTE IMMATURE GRANULOCYTE 0.04(H) 0.00 - 0.03 10 (3) mcL. 03/24/2025 12:22 PM CDT [facility] NRBC PER 100 WBC 0 03/24/20 25 12:22 PM CDT [facility] Blood Venipuncture / Unknown 03/24/2025 11:05 AM CDT 03/24/2025 12:07 PM CDT us Marjorie Clark MD HEMATOLOGY ORDERABLES Final Resu lt [facility] [address] [place] [address] * VITAMIN B12 (03/24/2025 11:05 AM CDT) VITAMIN B12 379 213 - 816 pg/mL 03/24/2025 12:59 PM CDT [facility] Blood Venipuncture / Unknown 03/24/2025 11:05 AM CDT 03/24/2025 12:07 PM CDT us Graciela Todd SURVEY CREW CHIEF, CARTON FOLDER CHEMISTRY ORDERABLES Final Result Performing Organization Address City/[facility] Co de Phone Number [facility] [address] [place] [address] * PSA SCREEN (03/24/2025 11:05 AM CDT) PSA SCREEN, TOTAL 1.02 <4.00 ng/mL 03/24/2025 12:59 PM CDT [facility] Blood Venipuncture / Unknown 03/24/2025 11:05 AM CDT 03/24/2025 12:07 PM CDT Narrative [facility] - 03/24/2025 12:59 PM CDT The ALINITY Total PSA assay is a Chemiluminescent Microparticle Immunoassay (CMIA) for the quantitative determination of total PSA (both free PSA and PSA complexed to [id number]) in human serum. Total PSA values obtained with different assay methods, including Rodriguez PSA assays, cannot be used interchangeably. us Marjorie Clark MD CHEMISTRY ORDERABLES Final Resul t Performing Organization Address City/[facility] Co de Phone Number [facility] [address] [place] [address] * LIPID PANEL (03/24/2025 11:05 AM CDT) CHOLESTEROL 138 <200 mg/dL 03/24/2025 12:35 PM CDT [facility] TRIGLYCERIDES 144 <150 mg/dL 03/24/2025 12:35 PM CDT [facility] HDL CHOLESTEROL 53 >40 mg/dL 12:35 PM CDT [facility] LDL 56 <130 mg/dL 03/24/2025 12:35 PM CDT [facility] VLDL 29 10 - 50 mg/dL 03/24/2025 12:35 PM CDT [facility] CHOL/HDL RATIO 2.6 0.0 - 4.4 03/24/2025 12:35 PM CDT [facility] NON-HDL CHOLESTEROL 85 <130 mg/dL 03/24/2025 12:35 PM CDT [facility] IS THE PATIENT REQUIRED TO BE FASTING? Yes 03/24/2025 12:35 PM CDT [facility] HAS THE PATIENT BEEN FASTING? Yes 03/24/2025 12:35 PM CDT [facility] Blood Venipuncture / Unknown 03/24/2025 11:05 AM CDT 03/24/2025 12:08 PM CDT Narrative [facility] - 03/24/2025 12:35 PM CDT NCEP [...] Clark MD CHEMISTRY ORDERABLES Final Resul t [facility] [address] [place] [address] * HEPATITIS A ANTIBODY IGM (03/24/2025 11:05 AM CDT) HEPATITIS A IGM ANTIBODY NON DETECTED NON DETECTED 03/25/2025 12:03 AM CDT [facility] Comment: IGM Antibodies to HAV not detected. Does not exclude early acute or recovered HAV infection. Blood Venipuncture / Unknown 03/24/2025 11:05 AM CDT 03/24/2025 12:08 PM CDT us Not On File Provider CHEMISTRY ORDERABLES Final Result [facility] [address] [facility] [place] [address], [place] * (ABNORMAL) CMP (COMPREHENSIVE METABOLIC PANEL) (03/24/2025 11:05 AM CDT) SODIUM 139 136 - 145 mmol/L 03/24/2025 12:35 PM CDT [facility] POTASSIUM 4.0 3.5 - 5.1 mmol/L 03/24/2025 12:35 PM CDT [facility] CHLORIDE 104 98 - 107 mmol/L 03/24/2025 12:35 PM CDT [facility] CO2, VENOUS 26 22 - 30 mmol/L 03/24/2025 12:35 PM CDT [facility] ANION GAP 13.0 <18.0 mmol/L 03/24/2025 12:35 PM CDT [facility] GLUCOSE 114(H) 70 - 99 mg/dL 03/24/2025 12:35 PM CDT [facility] BUN 15 8 - 26 mg/dL 03/24/2025 12:35 PM CDT [facility] CREATININE, BLOOD 0.98 0.70 - 1.30 mg/dL 03/24/2025 12:35 PM CDT [facility] BUN/CREATININE RATIO 15 12 - 20 ratio 03/24/2025 12:35 PM CDT [facility] TOTAL PROTEIN 7.4 6.0 - 8.0 g/dL 03/24/2025 12:35 PM CDT [facility] ALBUMIN 4.6 3.5 - 5.0 g/dL 03/24/2025 12:35 PM CDT [facility] A/G RATIO 1.6 1.0 - 2.2 03/24/2025 12:35 PM CDT [facility] CALCIUM 9.7 8.7 - 10.5 mg/dL 03/24/2025 12:35 PM T [facility] T BILI 0.6 0.2 - 1.2 mg/dL 03/24/2025 12:35 PM CDT [facility] SGOT (AST) 25 <43 U/L 03/24/2025 12:35 PM T [facility] SGPT (ALT) 35 <56 U/L 03/24/2025 12:35 PM CDT [facility] ALKALINE PHOSPHATASE 68 40 - 150 U/L 03/24/2025 12:35 PM [facility] IS THE PATIENT REQUIRED TO BE FASTING? No 03/24/2025 12:35 PM [facility] GFR, ESTIMATED >60 >=60 03/24/2025 12:35 PM T [facility] Comment: Creatinine Clearance is the preferred criteria for selecting drug dose adjustments in renally impaired patients. The GFR is provided as additional pertinent clinical information. GFR is reported in mL/min/1.73 sq m. Calculation based on the 2020 Chronic Kidney Disease Epidemiology Collaboration (CKD-EPI) equation refit without adjustment for race. GFR, EST. >60 >=60 025 12:35 PM [facility] Comment: Creatinine Clearance is the preferred criteria for selecting drug dose adjustments in renally impaired patients. The GFR is provided as additional pertinent clinical information. GFR is reported in mL/min/1.73 sq m. Calculation based on the 2009 Chronic Kidney Disease Epidemiology Collaboration (CKD-EPI). GFR, EST. NONAFRICAN >60 >=60 03/24/2025 12:35 PM [facility] Comment: Creatinine Clearance is the preferred [...] ORDERABLES Final Resul t Performing Organization Address City/[facility]/ZIP Co de Phone Number [facility] [address] [place] [address] * CERULOPLASMIN (03/24/2025 11:05 AM CDT) CERULOPLASMIN 22 20 - 60 mg/dL 03/24/2025 11:32 PM CDT [facility] Blood Venipuncture / Unknown 03/24/2025 11:05 AM CDT 03/24/2025 12:07 PM CDT us Not On File Provider CHEMISTRY ORDERABLES Final Result Performing Organization Address City/[facility]/ZIP Co de Phone Number [facility] [address] [place] [address], [place] * BILIRUBIN DIRECT (CONJUGATED) (03/24/2025 11:05 AM CDT) Pathologist [facility] BILIRUBIN,DIREC T 0.2 0.0 - 0.5 mg/dL 03/24/2025 12:35 PM CDT [facility] Blood Venipuncture / Unknown 03/24/2025 11:05 AM CDT 03/24/2025 12:08 PM CDT us Not On File Provider CHEMISTRY ORDERABLES Final Result Performing Organization Address City/[facility]/ZIP Co de Phone Number [facility] [address] [place] [address] * MARC SCREEN MULTIPLEX W/REFLEX JADE (03/24/2025 11:05 AM CDT) MARC SCR MULTIPLEX Negative Negative, See comment 03/27/2025 6:35 PM CDT [facility] Blood Venipuncture / Unknown 03/24/2025 11:05 AM CDT 03/24/2025 12:07 PM CDT Narrative [facility] - 03/27/2025 6:35 PM CDT Antibody testing was performed by multiplex flow immunoassay on the BioPlex platform. us Not On File Provider IMMUNOLOGY ORDERABLES Final Result Performing Organization Address City/[facility]/ZIP Co de Phone Number [facility] [address] [place] [address], [place] * HM COLONOSCOPY (07/08/2024 12:00 AM PHOTOGRAPHER AERIAL) 07/08/2024 us Hernandez Altman MD PROCEDURE/MINOR SURGICAL ORDERABLES Final Result Performing Organization Address [facility]/ZIP Co de Phone Number SCAN * HEPATITIS C RNA QUANT PCR VIRAL LOAD (10/23/2018 3:44 PM CDT) Pathologist [facility] HCV RNA QUANT PCR NON DETECTED NON DETECTED 10/26/2018 1:20 PM CDT [facility] HCV RNA QT LOG10 <=0.00 Log10 IU/mL 10/26/2018 1:20 PM CDT [facility] Comment: LOG 10 is not applicable. Sample held in Serology for 1 month. Call Laboratory if further testing is desired. This test was performed using SE AmpliPrep SE Taq Man Real Time PCR. Blood specimen (specimen) Venipuncture / Unknown 10/23/2018 3:44 PM CDT 10/23/2018 4:31 PM CDT us Becca Obrien APRN, STORE RECEIVING CLERK IMMUNOLOGY ORDERA BLES Final Result Performing Organization Address [facility]/ZIP Co de Phone Number [facility] [address] [place] [address], [place] from Last 3 Months or Most Recently Relevant to Health Maintenance Insurance MEDICARE C [employer] Advance Directives * Full Code (Latest Code Status on File) Date Activated Date Inactivated Comments 09/06/2023 7:59 PM 09/08/2023 6:36 PM CPR-Full Treat ment: FULL ARREST: Attempt Resuscitation/CPR wit intubation and mechanical ventilation. PRE-ARREST: Use entire range of life support measures to stabilize the patient. Care Teams Floor Plan Adjuster Relationship Specialty Start Date End Date Areli Alarcon MD [address] [place] [address] PCP - General Internal Medicine 12/12/24 Valdemar Alcantara R, SURVEY CREW CHIEF [address] [place] [address] Nurse Practitioner Psychiatry 08/27/21 Doug Sanford [address] [address] Consulting Physician Endocrinology 08/27/21 Rose Mckeon MD [address] [place] [address] Consulting Physician Gastroenterology 08/27/21 Dilia Hansen MD [address] [place] [address] Consulting Physician Endocrinology 12/03/21 Marjorie Clark MD [address] [id number] Consulting Physician Endocrinology 02/21/22 Kavon Renee, DPAlexa Podiatry 12/15/21 Fer Chauhan MD [address] [facility] [place] [address] Consulting Physician Neurology 12/05/22 Blaise Peterson MD [address] [address] Consulting Physician Urology 01/03/23 Clayton Iyer PAC #[address] [address] Physician Nfl Player Physician Nfl Player 01/24/24 Juliana Smith [address] [place] [address] Nurse Practitioner Neurology 02/14/24
--- OUTSIDE RECORDS SUMMARY | 2025-04-10 16:09 | XMS_ITS | Encounter Summary ---
Author Organization [facility] Address [address] [place] [address] Phone Care Team Providers Care Heel Attacher Name Role Phone Valdemar Alcantara DONNIE Unavailable Hernandez Altman MD Primary Care Provider [phone] Doug Sanford Unavailable Rose Mckeon MD Unavailable [phone] Dilia Hansen MD Unavailable [phone] Marjorie Clark MD Unavailable Kavon Renee DPM Unavailable Unavailable Fer Chauhan MD Unavailable Blaise Peterson MD Unavailable [phone] Clayton Iyer PAC Unavailable [phone] Juliana Smith Unavailable [phone] Areli Alarcon MD Primary Care Provider Reason for Visit * Reason Comments Medication Refill Encounter Details Date Type Department Care Team (Late st Contact Info) Description 07/04/2023 [facility]ill [facility] - [place] [address] [place] [address] Marjorie Clark MD #[address] [address] Medication Refill Social History Tobacco Use Types [...] Miscellaneous Notes * Telephone Encounter - Gela Ortiz, RN - 07/04/2023 4:06 PM MANAGER FURNITURE Requested Prescriptions Pending Prescriptions Disp Refills ??? testosterone cypionate (DEPO-TESTOSTERONE) 200 MG/ML Solution [Pharmacy Med Name: TESTOSTERONE CYP 200 MG/ML] 6 mL 0 Sig: INJECT 0.5 ML BY INTRAMUSCULAR ROUTE EVERY 7 DAYS (ON THURSDAYS) Next appt: 08/24/2023 GER FURNITURE documented in this encounter Plan of Treatment Upcoming Encounters Date Type Department Care Team (Latest Contact Info) Description 04/15/2025 10:15 AM MANAGER FURNITURE Physical Therapy [facility] 200 [facility], [facility] [address] [place] [address] Romeo Simpson MD [address] [facility] [address] [place] [address] Meliton Duffy, PT [place] Discharge Disposition: Discharged to home or Selfcare 05/22/2025 8:45 AM MANAGER FURNITURE Office Visit [facility] - [place] #2 [place] [address] Marjorie Clark MD #2 [facility] [address] [place] [address] 06/10/2025 8:30 AM MANAGER FURNITURE Office Visit [facility] - Neurology - [place] #2 [place] [address] Graciela Todd, MERCHANDISE PROCESSOR, MACHINE OPERATOR HAY STACKER #2 [place] [address] documented as of this encounter Visit Diagnoses Diagnosis Male hypogonadism Other testicular hypofunction documented in this encounter Additional Health Concerns Infection Onset Date Last Indicated Resolved Time C. difficile Rule-Out 08/11/2023 08/11/20232023 12:32 PM MANAGER FURNITURE Assessment Noted Time PHQ-9 Depression Total Score: 0 06/08/19 9:26 AM MANAGER FURNITURE documented as of this encounter Care Teams Heel Attacher Relationship Specialty Start Date End Date Hernandez Altman MD [address] [place] [address] PCP - General Internal Medicine 08/27/21 12/11/24 Areli Alarcon MD [address] [place] [address] PCP - General Internal Medicine 12/12/24 Valdemar Alcantara APRN [address] [place] [address] Nurse Practitioner Psychiatry 08/27/21 Doug Sanford [address] [address] Consulting Physician Endocrinology 08/27/21 Rose Mckeon MD #2 [place] [address] Consulting Physician Gastroenterology 08/27/21 Dilia Hansen MD #2 [place] [address] Consulting Physician Endocrinology 12/03/21 Marjorie Clark MD #2 [facility] [address] [place] [address] Consulting Physician Endocrinology 02/21/22 Kavon Renee DPAlexa Podiatry 12/15/21 Fer Chauhan MD [address] [facility]. [address] [place] [address] Consulting Physician Neurology 12/05/22 Blaise [place] MD #2 [facility] [address] [place] [address] Consulting Physician Urology 01/03/23 Clayton Iyer, GILMAR #2 [facility] [address] [place] [address] Physician Block Engraver Physician Block Engraver 01/24/24 Juliana Smith [address] [place], [place] [address] Nurse Practitioner Neurology 02/14/24 documented as of this encounter
--- OUTSIDE RECORDS SUMMARY | 2025-04-10 16:09 | XMS_ITS | Encounter Summary ---
Author Organization [facility] Address [address] [place] [address] Phone Care Team Providers Care Consumer Affairs Director Name Role Phone Valdemar Alcantara Maira FIELDS Unavailable [phone] Doug Sanford Unavailable Rose Mckeon MD Unavailable [phone] Dilia Hansen MD Unavailable [phone] Marjorie Clark MD Unavailable Kavon Renee DPM Unavailable Unavailable Fer Chauhan MD Unavailable Blaise [place] MD Unavailable [phone] Clayton Iyer PAC Unavailable [phone] Juliana Smith Unavailable [phone] Areli Alarcon MD Primary Care Provider Reason for Referral * PT/OT/ST (Routine) - Open Specialty Diagnoses / Procedures Referred By Ramandeep t Referred To Contact Physical Therapy Diagnoses Complete tear of right rotator cuff, unspecified whether traumatic Romeo Simpson MD [address] [facility] [address] [place] [address] Phone: tel: fax: [facility] [address], [address] [place] [address] Phone: tel: fax: Referral ID Status Reason Start Date Expiration Date Visits Re quested Visits Authorized [id number] Open 04/08/2025 100 100 Scheduling Instructions ING AND VENTILATING TENDER Encounter Details Date Type Department Care Team (Latest Contact Info) Description 04/08/2025 Transcribe Orders [facility] [address] [place] [address] Romeo Simpson MD [address] [facility] [address] [place] [address] Complete tear of right rotator cuff, unspecified whether traumatic (Primary Dx) Social History Tobacco Use Types Packs/Day Years Used Date Smoking Tobacco: Never Smokeless Tobacco: Never Alcohol Use Standard Drinks/Week Comments Yes 3 (1 standard drink = 0.6 oz pur e alcohol) [facility] Utilities Answer Date Recorded In the past 12 months has [employer] electric, gas, oil, or water LIA threatened to shut off services in your home? Patient declined 09/06/2023 Social Connection and Isolation Panel Answer Date Recorded In a typical week, how many times do you talk on the phone with family, friends, or neighbors? Patient declined 09/06/2023 How often do you get togethe r with friends or relatives? Patient declined 09/06/2023 How often do you attend jew or protestant serv ices? Patient declined 09/06/2023 Do you belong to any clubs o r organizations such as jew groups, unions, fraternal or athletic groups, or [...] Score - Questions 1-9 0 0 09/2023 [facility] - Occupational Stress Questionnaire Answer Date Recorded [...] place to sleep or slept in a assisted (including now)? Patient declined 09/06/2023 Sexually Active Control Partners Comments Yes Sex and Gender Information Value Date Recorded Sex Assigned at Not on file Legal Sex Male 2:12 AM CDT Gender Identity Not on file Sexual Orientation Not on file documented as of this encounter Plan of Treatment Upcoming Encounters Date Type Department Care Team (Latest Contact Info) Description 04/15/2025 10:15 AM HEATING AND VENTILATING TENDER Physical Therapy [facility] [address] [address] Romeo Simpson MD [address] [facility] [address] [place] [address] Meliton Duffy, PT [place] Discharge Disposition: Discharged to home or Selfcare 05/22/2025 8:45 AM HEATING AND VENTILATING TENDER Office Visit [facility] - Endocrinology [facility] #2 [place] [address] Marjorie Clark MD #[address] [address] 06/10/2025 8:30 AM HEATING AND VENTILATING TENDER Office Visit [facility] - Neurology [facility] #2 [place] [address] Graciela Todd APRN, USER INTERFACE ENGINEER #2 [place] [address] Scheduled Referrals Name Type Priority Associated Diagnoses Orde r Schedule PHYSICAL THERAPY REFERRAL Outpatient Referral Routine Complete tear of right rotator cuff, unspecified whether traumatic Expected: 04/08/2025, Expires: 04/08/2026 documented as of this encounter Visit Diagnoses Diagnosis Complete tear of right rotator cuff, unspecified whether traumatic- Primary documented in this encounter Additional Health Concerns Assessment Noted Time PHQ-9 Depression Total Score: 0 06/08/19 24 9:26 AM HEATING AND VENTILATING TENDER documented as of this encounter Care Teams Consumer Affairs Director Relationship Specialty Start Date End Date Areli Alarcon MD [address] [place] [address] PCP - General Internal Medicine 12/12/24 Valdemar Alcantara APRN [address] [place] [address] Nurse Practitioner Psychiatry 08/27/21 Doug Sanford 3660 [facility] [address] [place] [address] Consulting Physician Endocrinology 08/27/21 Rose Mckeon MD #2 [place] [address] Consulting Physician Gastroenterology 08/27/21 Dilia Hansen MD #2 [place] [address] Consulting Physician Endocrinology 12/03/21 Marjorie Clark MD #[address] [address] Consulting Physician Endocrinology 02/21/22 Kavon Renee DPM Podiatry 12/15/21 Fer Chauhan MD [address] [facility]. [address] [place] [address] Consulting Physician Neurology 12/05/22 Blaise [place] MD #[address] [address] Consulting Physician Urology 01/03/23 Clayton Iyer PAC #[address] [address] Physician Fisher Physician Fisher 01/24/24 Juliana Smith [address] [address] Nurse Practitioner Neurology 02/14/24 documented as of this encounter
--- OUTSIDE RECORDS SUMMARY | 2025-04-10 16:09 | XMS_ITS | Clinical Summary ---
Author Organization [facility] Address [address] [place] [address] Care Team Providers Care Supervisor Stave Cutting Name Role Phone Unavailable Primary Care Provider Unavailabl e Source Comments [facility],non-owned Affiliates and Associated Physician Practices is amultiple site organization consisting of ambulatory clinics and hospital sitesin [place], [place], [place] and [place]. This disclosure is being madepursuant to the Care Everywhere program and may not contain all information available regarding this patient. Last updated 18.[facility] Allergies Active Allergy Reactions Criticality Noted Date [...] 08/05/19 23 Active B-D 3CC LUER-KRISTEN SYR 18RO1-4/2 22G X 1-1/2 3 ML MISC USE [...] 03/14/2025 Refill [facility] - Neurology [address] [place] [address], [place] [address] Juliana Smith, SADDLE MAKER-BENDER HAND Refill Request 02/27/2025 Orders Only [facility] - Neurology [address] [place] [address] April Steinberg RN 02/25/2025 Refill [facility] - Neurology [address] [place] [address] Juliana Smith, SADDLE MAKER-BENDER HAND Refill Request from Last 3 Months Immunizations [...] and heating? Not hard at all 03/01/2023 [facility] [place] [facility]at ional [facility] - Occupational Stress [...] place to sleep or slept in a prison (including now)? No 03/01/2023 Sex and Gender Information Value Date Recorded Sex Assigned at Not on file Legal Sex Male 6:01 AM CELEBRITY CHEF ENTREPRENEUR MEDIA PERSONALITY Gender Identity Not on file Sexual Orientation Not on file Last Filed Vital Signs Vital Sign Reading Time Taken Comments Blood Pressure 162/92 01/22/2024 9:23 AM CDT Pulse 73 01/22/2024 9:23 AM CDT Temperature 36.1 C (97 F) 07/24/2023 10:24 AM CELEBRITY CHEF ENTREPRENEUR MEDIA PERSONALITY Respiratory Rate 12 04/06/2023 11:15 AM CDT Oxygen Saturation 99% 07/24/2023 10:24 AM CELEBRITY CHEF ENTREPRENEUR MEDIA PERSONALITY Inhaled Oxygen Concentration - - Weight 106.1 [...] this topic Medical Devices Explanted Type Area Associate Merchandise Planner Device Identifier Shelf Expiration Date Model / Serial / Lot Sacral Stimulator [employer] 3058 / / Description:Explanted no w. See scanned surgical report-LT 02/10/23 Patient does have device ski lift mechanic and remote, however, device is . Per [employer], unable to do scan as patient needs to be able to put this in MRI mode- LT 11/15/22 Insurance MEDICAID - [place] [facility] MEDICARE ADV D-SNP & C-SNP Advance Directives * Full Code (Latest Code Status on File) Date Activated Date Inactivated Comments 02/28/2023 5:11 PM 03/01/2023 6:44 PM
--- OUTSIDE RECORDS SUMMARY | 2025-04-10 16:09 | XMS_ITS | Encounter Summary ---
Author Organization [facility] Address [address] [place] [address] Phone Care Team Providers Care Grill Attendant Name Role Phone Valdemar Alcantara DONNIE Unavailable Hernandez Altman MD Primary Care Provider [phone] Doug Sanford Unavailable Rose Mckeon MD Unavailable [phone] Dilia Hansen MD Unavailable [phone] Marjorie Clark MD Unavailable Kavon Renee DPM Unavailable Unavailable Fer Chauhan MD Unavailable Blaise [place] MD Unavailable [phone] Clayton Iyer PAC Unavailable Juliana Smith Unavailable [phone] Areli Alarcon MD Primary Care Provider Reason for Visit * Reason Comments Medication Refill Encounter Details Date Type Department Care Team (Late st Contact Info) Description 06/27/2023 Refill [facility] - [place] #2 [place] [address] Marjorie Clark MD #[address] [address] Medication Refill Social History Tobacco Use Types [...] Telephone Encounter - Gela Ortiz, RN - 06/28/2023 8:50 AM MANAGER PHYSICAL Requested Prescriptions Pending Prescriptions Disp Refills ??? testosterone cypionate (DEPO-TESTOSTERONE) 200 MG/ML Solution [Pharmacy Med Name: TESTOSTERONE CYP 200 MG/ML] 6 mL 0 Sig: INJECT 0.5 ML BY INTRAMUSCULAR ROUTE EVERY 7 DAYS (ON THURSDAYS) Next appt: 08/24/2023 GER PHYSICAL documented in this encounter Plan of Treatment Upcoming Encounters Date Type Department Care Team (Latest Contact Info) Description 04/15/2025 10:15 AM MANAGER PHYSICAL Physical [facility] 200 [facility], [facility] H[address] [place] [address] Romeo Simpson MD [address] [facility] [address] [place] [address] Meliton Duffy, PT [place] Discharge Disposition: Discharged to home or Selfcare 05/22/2025 8:45 AM MANAGER PHYSICAL Office Visit [facility] [place] #2 [place] [address] Marjorie Clark MD #2 [facility] [address] [place] [address] 06/10/2025 8:30 AM MANAGER PHYSICAL Office Visit [facility] - Neurology - [place] #2 [place] [address] Graciela Todd, FIRE OFFICER, FARM OWNER OPERATOR #2 [place] [address] documented as of this encounter Visit Diagnoses Diagnosis Male hypogonadism Other testicular hypofunction documented in this encounter Additional Health Concerns Infection Onset Date Last Indicated Resolved Time C. difficile Rule-Out 08/11/2023 08/11/20232023 12:32 PM MANAGER PHYSICAL Assessment Noted Time PHQ-9 Depression Total Score: 0 06/08/19 9:26 AM MANAGER PHYSICAL documented as of this encounter Care Teams Grill Attendant Relationship Specialty Start Date End Date Hernandez Altman MD [address] [place] [address] PCP - General Internal Medicine 08/27/21 12/11/24 Areli Alarcon MD [address] [place] [address] PCP - General Internal Medicine 12/12/24 Valdemar Alcantara APRN [address] [place] [address] Nurse Practitioner Psychiatry 08/27/21 Doug Sanford [address] [address] Consulting Physician Endocrinology 08/27/21 Rose Mckeon MD #2 [place] [address] Consulting Physician Gastroenterology 08/27/21 Dilia Hansen MD #2 [place] [address] Consulting Physician Endocrinology 12/03/21 Marjorie Clark MD #2 [facility] [address] [place] [address] Consulting Physician Endocrinology 02/21/22 Kavon Renee DPAlexa Podiatry 12/15/21 Fer Chauhan MD [address] [facility]. [address] [place] [address] Consulting Physician Neurology 12/05/22 Blaise [place] MD #2 [facility] [address] [place] [address] Consulting Physician Urology 01/03/23 Clayton Iyer, GILMAR #2 [facility] [address] [place] [address] Physician Local Superintendent Physician Local Superintendent 01/24/24 Juliana Smith [address] [place], [place] [address] Nurse Practitioner Neurology 02/14/24 documented as of this encounter
--- OUTSIDE RECORDS SUMMARY | 2025-04-10 16:09 | XMS_ITS | Encounter Summary ---
Author Organization [facility] Address [address] [place] [address] Phone Care Team Providers Care Bead Forming Machine Set Up Operator Name Role Phone Valdemar Alcantara DONNIE Unavailable [phone] Doug Sanford Unavailable Rose Mckeon MD Unavailable Dilia Hansen MD Unavailable [phone] Marjorie Clark MD Unavailable Kavon Renee DPM Unavailable Unavailable Fer Chauhan MD Unavailable [phone] Blaise Peterson MD Unavailable [phone] Clayton Iyer PAC Unavailable [phone] Juliana Smith Unavailable [phone] Areli Alarcon MD Primary Care Provider Encounter Details Date Type Department Care Team (Latest Contact Info) Description 12/31/[address] [facility] [address] [place] [address] Provider, Not On File [place] Elevated liver enzymes (Primary Dx) Social History Tobacco Use Types Packs/Day Years Used Date Smoking Tobacco: Never Smokeless Tobacco: Never Alcohol Use Standard Drinks/Week Comments Yes 3 (1 standard drink = 0.6 oz pur e alcohol) [facility] Utilities Answer Date Recorded In the past [...] declined 09/06/2023 How often do you attend yazdanism or synagogue serv ices? Patient declined 09/06/2023 Do you belong to any clubs o r organizations such as yazdanism groups, unions, fraternal or athletic groups, or [...] Score - Questions 1-9 0 0 09/2023 [facility] Occupat ional Health - Occupational [...] place to sleep or slept in a m[facility] (including now)? Patient declined 09/06/2023 Sexually Active Control Partners Comments Yes Sex and Gender Information Value Date Recorded Sex Assigned at Not on file Legal Sex Male 2:12 AM CDT Gender Identity Not on file Sexual Orientation Not on file documented as of this encounter Plan of Treatment Upcoming Encounters Date Type Department Care Team (Latest Contact Info) Description 04/15/2025 10:15 AM CUSTOMER MARKETING INTERN Physical Therapy [facility] [address] [place] [facility], [facility] [address] [place] [address] Romeo Simpson MD [address] [facility] [address] [place] [address] Meliton Duffy, PT [place] Discharge Disposition: Discharged to home or Selfcare 05/22/2025 8:45 AM CUSTOMER MARKETING INTERN Office Visit [facility] - [place] #2 [place] [address] Marjorie Clark MD #2 [facility] [address] [place] [address] 06/10/2025 8:30 AM CUSTOMER MARKETING INTERN Office Visit [facility] - Neurology [facility] #[address] [place] [address] Graciela Todd, PRODUCT SALES REPRESENTATIVE, UNDERWRITING SUPPORT MANAGER #2 [place] [address] documented as of this encounter Results * HEPATITIS B CORE TOTAL ANTIBODY (03/24/2025 11:05 AM CDT) HEP B CORE TOTAL (IGM, IGG) BKR NON DETECTED NON DETECTED 03/25/2025 12:03 AM CDT [facility] Blood Venipuncture / Unknown 03/24/2025 11:05 AM CDT 03/24/2025 12:08 PM CDT us Not On File Provider CHEMISTRY ORDERABLES Final Result Performing Organization Address City/[facility]/ZIP Co de Phone Number [facility] [address] [place] [address], [place] * MARC SCREEN MULTIPLEX W/REFLEX JADE (03/24/2025 11:05 AM CDT) MARC SCR MULTIPLEX Negative Negative, See comment 03/27/2025 6:35 PM CDT [facility] Blood Venipuncture / Unknown 03/24/2025 11:05 AM CDT 03/24/2025 12:07 PM CDT Narrative [facility] - 03/27/2025 6:35 PM CDT Antibody testing was performed by multiplex flow immunoassay on the Gencia platform. us Not On File Provider IMMUNOLOGY ORDERABLES Final Result Performing Organization Address City/[facility]/ZIP Co de Phone Number [facility] [address] [place] [address], [place] * HEPATITIS A ANTIBODY IGM (03/24/2025 11:05 AM CDT) HEPATITIS A IGM ANTIBODY NON DETECTED NON DETECTED 03/25/2025 12:03 AM CDT [facility] Comment: IGM Antibodies to HAV not detected. Does not exclude early acute or recovered HAV infection. Blood Venipuncture / Unknown 03/24/2025 11:05 AM CDT 03/24/2025 12:08 PM CDT us Not On File Provider CHEMISTRY ORDERABLES Final Result [facility] [address] [place] [address], [place] * CERULOPLASMIN (03/24/2025 11:05 AM CDT) Pathologist [facility] CERULOPLASMIN 22 20 - 60 mg/dL 03/24/2025 11:32 PM CDT [facility] Blood Venipuncture / Unknown 03/24/2025 11:05 AM CDT 03/24/2025 12:07 PM CDT us Not On File Provider CHEMISTRY ORDERABLES Final Result Performing Organization Address City/[facility] Co de Phone Number [facility] [address] [place] [address], [place] * ACTIN (F-ACTIN) ANTIBODY (SMOOTH MUSCLE AB), IGG, SERUM (03/24/2025 11:05 AM CDT) Pathologist [facility] F-ACTIN 8.1 <20.0 03/26/2025 11:47 AM CDT [facility] Comment: <20.0 Negative 20.0-30.0 Weak Positive >30.0 Moderate to Strong Positive Blood Venipuncture / Unknown 03/24/2025 11:05 AM CDT 03/24/2025 12:07 PM CDT Narrative [facility] - 03/26/2025 11:47 AM CDT Performed by enzyme-linked immunosorbent assay (SARAH). us Not On File Provider IMMUNOLOGY ORDERABLES Final Result [facility] [address] [place] [address], documented in this encounter Visit Diagnoses Diagnosis Elevated liver enzymes- Primary Nonspecific elevation of levels of transaminase or lactic acid dehydrogenase (LDH) documented in this encounter Additional Health Concerns Assessment Noted Time PHQ-9 Depression Total Score: 0 06/08/19 24 9:26 AM CUSTOMER MARKETING INTERN documented as of this encounter Care Teams Bead Forming Machine Set Up Operator Relationship Specialty Start Date End Date Areli Alarcon MD [address] [place] [address] PCP - General Internal Medicine 12/12/24 Valdemar Alcantara APRN [address] [place] [address] Nurse Practitioner Psychiatry 08/27/21 Doug Sanford [address] [facility] [address] [place] [address] Consulting Physician Endocrinology 08/27/21 Rose Mckeon MD #2 [place] [address] Consulting Physician Gastroenterology 08/27/21 Dilia Hansen MD #2 [place] [address] Consulting Physician Endocrinology 12/03/21 Marjorie Clark MD #[address] [address] Consulting Physician Endocrinology 02/21/22 Kavon Renee DPM Podiatry 12/15/21 Fer Chauhan MD [address] [place] [address] Consulting Physician Neurology 12/05/22 Blaise Peterson MD #2 [facility], [address] [address] Consulting Physician Urology 01/03/23 Clayton Iyer PAC #2 [facility], [facility] [address] [place] [address] Physician Purchasing Officer Physician Purchasing Officer 01/24/24 Juliana Smith [address] [place] [address] Nurse Practitioner Neurology 02/14/24 documented as of this encounter
--- OUTSIDE RECORDS SUMMARY | 2025-04-10 16:09 | XMS_ITS | Data Portability ---
Author Organization [place] - [facility], Main Office Address [address] [place] [address] Care Team Providers Care Solar Thermal Installer Name Role Phone JOB ALARCON Primary Care Provider JOB ALARCON Referring Provider [phone] ELVIN MURILLO Computing Machine Operator [phone] ANA BIANCHI Orthopedic Surgeon JOSUE CHAMBERLAIN Fiberglass Ski Maker MARJORIE CLARK Electric Razor Mechanic TOSHA SMITH Neurologist Assessment Encounter Date Assessment [...] available Lab lipid panel, serum 2024 025 [facility] (Lab), [address] [place], [address], 12/25/2024 10:26:28 TSH, serum or plasma 2024 025 [facility] (Lab), [address] [place], [address], 12/25/2024 10:26:28 CBC w/ auto diff 2024 025 [facility] (Lab), [address] [place], [address], 12/25/2024 10:26:28 CMP, serum or plasma 2024 025 [facility] (Lab), [address] [place], [address], 12/25/2024 10:26:28 vitamin D, 25-hydro xy, total, serum 2024 025 [facility] (Lab), [address] [place], [address], 12/25/2024 10:26:28 vitamin B12 + folate, serum or blood 2024 025 [facility] (Lab), [address] [place], [address], 12/25/2024 10:26:28 lipid panel, serum [address] (Lab), [address] [place], [address], 12/11/2024 09:30:05 TSH, serum or plasma [address] (Lab), [address] [place], [address], 12/11/2024 09:30:16 CBC w/ auto diff [address] (Lab), [address] [place], [address], 12/11/2024 09:30:26 CMP, serum or plasma [address] (Lab), [address] [place], [address], 12/11/2024 09:30:37 vitamin D, 25-hydro xy, total, serum [address] (Lab), [address] [place], [address], 12/11/2024 09:31:02 vitamin B12 + folate, serum or blood [address] (Lab), [address] [place], [address], 12/11/2024 09:30:52 Referral physical therapis t referral - Please schedule pt for L knee and L hip. Thanks 2024 025 [facility] [place], [address], [place], [address], 12/30/2024 12:45:34 physical therapis t referral - Please contact pt to schedule for L hip and L knee. thanks 2024 025 [facility] [place], [address], [place], [address], 12/30/2024 13:07:43 pain manageme nt referral - Please call patient to schedule an appointm ent. Thank you. 2024 025 COURTNEY Pozo MD, [address], [place], [address], 01/13/2025 09:41:35 endocrin ology referral - Please call patient to schedule an appointm ent. Thank you. 2024 025 [email or web address] [facility] Marjorie Clark, [address] [facility] [address], [place], [address], 04/07/2025 12:30:49 oral surgery/ dentist referral - Please call patient to schedule an appointm ent. Thank you. 2024 025 [email or web address] Mathew Jeffrey DMD, [address], [place], [address], 04/07/2025 12:30:49 psychiat rist referral - Please call patient to schedule an appointm ent. Thank you. 2024 025 [email or web address] Nasreen Slater 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, [address] [facility], [address], [place], [address], 04/07/2025 12:30:[address] referral - Please call patient to schedule an appointm ent. Thank you. 2024 025 [email or web address] Myla Andrea MD, [address], [address], [place], [address], 04/07/2025 12:30:16 neurolog ist referral - Please call patient to schedule an appointm ent. Thank you. 2024 025 [email or web address] Nikolai Renteria MD, [address] [facility], [facility], [place], [address], 04/07/2025 12:30:50 cardiolo gist referral - Please call patient to schedule an appointm ent. Thank you. 2024 025 Josue Chamberlain, [address], [place], [address], 04/07/2025 12:30:48 pain manageme nt referral - Please call patient to schedule an appointm ent. Thank you. 2024 025 [email or web address] Lorna Mcneill MD, [address] [facility] [address], [place], [address], 03/11/2025 08:33:19 endocrin ology referral - Please call patient to schedule an appointm ent. Thank you. 2024 025 [email or web address] [facility] Diazmd Eduardo, [address], [place], [address], 03/11/2025 08:33:[address] referral - Please call patient to schedule an appointm ent. Thank you. 2024 025 [email or web address] Myla Andrea MD, [address], [address], [place], [address], 03/11/2025 08:35:47 cardiolo gist referral - Please call patient to schedule an appointm ent. Thank you. 2024 025 [email or web address] Josue Chamberlain, [address], [place], [address], 03/11/2025 08:30:24 orthoped ic surgeon referral - Please call patient to schedule an appointm ent. Thank you. 2024 025 [email or web address] Mina Bright MD, [address] [facility], [address], [place], [address], 03/11/2025 08:24:55 oral surgery/ dentist referral - Please call patient to schedule an appointm ent. Thank you. 2024 025 [email or web address] Mathew Wojciech DMD, [address], [place], [address], 03/11/2025 08:35:01 neurolog ist referral - Please call patient to schedule an appointm ent. Thank you. 2024 025 [email or web address] Nikolai Renteria MD, [address] [facility], [facility], [place], [address], 03/12/2025 09:06:52 physical therapis t referral - Please schedule pt for L hip. Thanks 2024 025 [facility], [address], [place], [address], 10/30/2024 17:10:28 Procedures injectio n, hip, fluoro guidance (PROC) - 4cc 1% Lidocain e & 40mg Depomedr ol Precerti fication Required ?: N 2024 025 [facility], [address], [place], [address], 01/07/2025 11:19:52 Surgeries None recorded . Imaging XR, knee 2024 025 [email or web address] [facility], [address], [place], [address], 12/25/2024 14:56:04 XR, hip + pelvis, unilater al, 2 or 3 view 2024 025 [email or web address] [facility], [address], [address], 10/30/2024 16:25:57 Medication Orders Celebrex 100 mg capsule 2024 025 [email or web address] [facility]/Pharmacy #[id number], [address] [place], [address], 02/05/2025 09:34:16 cephalex in 250 mg capsule 2024 Jocelin [email or web address] [facility]/Pharmacy #[id number], [address] [place], [address], 12/25/2024 09:24:56 Patient TargetsNo targets recorded. Patient [...] Job Alarcon Internal Medicine, Encounter Date: 12/04/2024 Fiberglass Ski Maker Referral for Es sential hypertension Please call [...] Job Alarcon Internal Medicine, Encounter Date: 12/04/2024 Route Relief Driver Referral for Chronic diarrhea Please call patient to schedule an appointment. Thank you. Referring Physician: Job Alarcon Internal Medicine, Encounter Date: 12/04/2024 Neurologist Referral for Tom lisa Please call patient to schedule an appointment. Thank you. Referring Physician: Job Alarcon Internal Medicine, Encounter Date: 12/04/2024 Fiberglass Ski Maker Referral for Es sential hypertension Please call [...] Job Alarcon, Internal Medicine, Encounter Date: 12/25/2024 Route Relief Driver Referral for Chronic diarrhea Please call patient [...] Physician: Job Alarcon Internal Medicine, Encounter Date: 12/25/2024 Psychiatrist Referral [...] 3 view No observ ation record ed. [email or web address] [facility] [address], [place], [address], 10/30/2024 10:16:30 12/26/19 25 XR, knee No observ ation record ed. [email or web address] [facility] [address], [place], [address], 12/25/2024 12:02:00 01/17/20 25 01/16/2025 injec tion, hip, fluor o alexandre nce (PROC ) No observ ation record ed. [email or web address] [facility] (Radiology) [address] [facility] [place], [address], 01/16/2025 11:24:15 Result Notes None recorded. Problems Name Problem SNOMED Code Status Onset Date Resolution Date Notes Provider Name and Address Organization Details Recorded Time Onychomycos is of toenails 159794330 Active 2023 VIR[place]IA Tubbs, [facility] [employer] [facility] 4 09:42:09 Carpal tunnel syndrome of right wrist 4300858886525 08 Active 2023 Lien Griffithhector guerra, [place] [employer] [facility] [employer] [facility] 4 14:38:10 Migraine 27547260 Active 2023 Job nunez MD [address], [facility] [address], [place], [address], [facility] [employer] [facility] 4 15:04:44 Hyperlipide alvin 52192749 Active 2023 Job nunez MD [address], [address], [place], [address], [employer] [facility] [employer] [facility] 4 15:04:50 Essential hypertensio n 63584254 Active 2023 Job nunez MD [address], [address], [place], [address], [employer] [facility] 4 15:04:53 Moderate recurrent major depression 60421271 Active 2023 Job nunez MD [address], [address], [place], [address], [place] [facility] [employer] [facility] 4 15:05:00 Gout 52779775 Active 2023 Job nunez MD [address], [address], [place], [address], [employer] [place] - [employer] [facility] 4 15:05:09 Hypogonadis m 95105927 Active 2023 Job nunez MD [address], [address], [place], [address], [place] [employer] [facility] 4 15:08:19 Gastroesoph ageal reflux disease without esophagitis 122641113 Active 2023 Job nunez MD [address], [address], [place], [address], [employer] [facility] 4 15:10:14 Serum vitamin B12 below reference range 144653137 Active 2023 Job nunez MD [address], [address], [place], [address], [employer] [facility] 4 15:37:51 Vitamin D deficiency 85623018 Active 2023 Job nunez MD [address], [address], [place], [address], [employer] [facility] 4 15:38:00 Carpal tunnel syndrome of left wrist 3338488017548 02 Active 2023 JES Bunch [address], [address], [place], [address], [facility] S [employer] [facility] 4 09:48:59 COVID-19 987479133 Active 2023 Ifrah Sierra MA null, [place] [facility] 4 10:33:27 Arthritis of first carpometaca rpal joint of left hand 9434303988079 103 Active 2023 Mina Bright MD [address], [address], [place], [address], [place] [facility] 4 14:27:37 Pain of left hand 0674346643545 03 Active 2023 V[place]IA Gonzalez null, [place] [facility] 4 09:54:13 Pain of right shoulder joint 3647139274821 9100 Active 2023 [place]IA Gonzalez null, [place] [facility] 4 09:40:29 Low back pain 064487200 Active 2023 Job nunez MD [address], [address], [place], [address], [facility] [place] [facility] 4 14:17:29 Insomnia 539000061 Active 2023 Job nunez MD [address], [address], [place], [address], [place] [facility] 4 14:17:29 Oral cyst 4220512356354 108 Active 2023 Job nunez MD [address], [address], [place], [address], [facility] 4 14:17:29 Leukocytosi s 328742201 Active 2023 Job nunez MD [address], [address], [place], [address], [place] [facility] 4 14:48:47 Increased liver function 78538901 Active 2024 Job nunez MD [address], [address], [place], [address], [facility] 5 09:35:12 Chronic diarrhea 218701936 Active 2024 Job nunez MD [address], [address], [place], [address], [facility] 5 09:36:07 Pain in left thumb 1754854893696 100 Active 2024 Job nunez MD [address] [facility], [address], [place], [address], [facility] 5 09:43:08 Pain of hip region 29702874 Active 2024 Job nunez MD [address], [address], [place], [address], [facility] 5 16:31:43 Pain of left knee joint 1144993678053 07 Active 2024 Job nunez MD [address], [address], [place], [address], [facility] 5 16:31:52 Osteoarthri tis of hip 144430691 Active 2024 Araceli Garcia , ATC L null, [facility] 5 10:46:48 Crohn's disease 57993964 Active 2024 VIRGINIA Floyd null, [facility] 5 12:42:15 Folliculiti s 43425187 Active 2024 Job nunez MD [address], [address], [place], [address], [facility] 5 11:12:59 Notes:Medical History: Depre ssion/Anxiety Migraine headaches COVID infection 04/2024 Obesity Hypertension Mixed hyperlipidemia [place] Hygonadism Vit B12 deficiency Vit D deficiency R>L CTS Left hand OA Gout Onychomycosis Problem Notes None recorded. Procedures Surgical History Date Name Laterality Status Provider Name and Address Organization Details Recorded Time 05/22/20 Medicare Wellness CPT Code, subsequent completed Ronal Mercado LPN Traveler | [facility] 05/22/2024 08:26:33 05/22/20 24 Advanced Care Planning completed Ronal Mercado LPN Traveler | [facility] 05/22/2024 15:03:55 05/22/20 24 Ortho - Cortisone Injection completed Ana Bianchi NP [address], [address], [place], [address], Traveler | [facility] 05/22/2024 13:48:19 05/08/20 24 Ortho - Cortisone Injection completed Ana Bianchi NP [address], [address], [place], [address], [employer] [facility] 05/08/2024 10:28:08 01/23/20 24 Debridement of Callus or Happy Jack completed Elvin Murillo DPM [address], [address], [place], [address], [employer] 01/24/2024 09:06:04 01/15/20 24 Partial Nail Avulsion Chemical Matrixectomy-Right completed Elvin Murillo DPM [address], [address], [place], [address], Traveler | [facility] 01/16/2024 10:21:23 11/16/19 24 Total Nail Avulsion with Phenol Matrixectomy completed Elvin Murillo DPM [address], [address], [place], [address], Traveler | [facility] 11/16/2023 10:31:09 03/28/20 04 Carpal tunnel surgery completed Rosalie Raya MA Traveler | [facility] 10/23/2024 15:44:53 Foot Surgery completed VIRGINIA Tubbs [facility] 11/16/2023 09:18:36 Neck Surgeries completed VIRGINIA Tubbs [facility] 11/16/2023 09:18:47 Shoulder completed VIRGINIA Tubbs [facility] 11/16/2023 09:18:56 procedure on elbow completed Edwige Doshi CNA [facility] 02/08/2024 14:12:13 release of trigger finger completed Edwige Doshi CNA [facility] 02/08/2024 14:12:37 Kidney completed Edwige Doshi CNA [facility] 02/08/2024 14:13:00 appendectomy completed Lana Villareal [facility] 02/21/2024 14:51:09 cholecystectomy completed Lana Villareal [facility] 02/21/2024 14:51:26 laminectomy completed Lana Villareal [facility] 02/21/2024 14:51:54 electrical stimulation of urinary bladder completed Lana Villareal [facility] 02/21/2024 14:52:16 release of trigger finger completed Rosalie Raya [facility] 12/04/2024 10:24:03 Imaging Results None recorded. Procedure Notes None recorded. Medical Equipment None Reported. Allergies Allergen ID Allergen Name Allergen Category Reaction Reaction Severity Criticality Documentation Date Start Date Code Code System Note Provider Name and Address Organization Details Recorded Time 71421 Substance with sulfonami de structure and antibacte rial mechanism of action (substanc e) medicatio n Not available Not available Not available 02/08/2024 85663 8003 SNOMED sweat s OLAYINKA Patel [facility] 14:07:21 Medications Name Sig Start Date Stop Date Status Note LastModified by Organization Details LastModified Time buspirone 5 mg tablet TAKE 1 TABLET BY MOUTH TWICE A DAY 02/07 completed Not Available Not Available Not Available silver sulfadiazin e 1 % topical cream APPLY A 1/16 INCH (1.5 MM) THICK LAYER TO ENTIRE BURN AREA BY TOPICALRO KLAWOCK 2 TIMES PER DAY 05/07 completed Not [...] 10 mg by injection route. 05/22 completed [facility]: 0003- [id number]- 20 Not Available Not Available [...] Updated DateTime 10/30/2024 182.88 cm 31.9 kg/m2 702031.21 g 6 VIRGINIA Gonzalez [employer] 10/30/2024 10:16:02 Date Recorded Body height Body mass index (BMI) Body weight Body temperature Heart rate Oxygen saturation Oxygen saturation in Arterial blood by Pulse oximetry Pain severity - 0-10 verbal numeric rating [Score] - Reported Systolic And Diastolic Provider Name and Address Organization Details Last Updated DateTime 182.88 cm 32.5 kg/m2 275315. 37 g 97.1 [degF] 67 /min 96 % 96 % 6 122/82 mm[Hg] Rosalie Raya MA [employer] 10:21:34 Date Recorded Body height Body mass index (BMI) Body weight Provider Name and Address Organization Details Last Updated DateTime 12/25/2024 180.34 cm 32.8 kg/m2 186223.21 g VIRGINIA Gonzalez [employer] 12/25/2024 10:52:05 Date Recorded Body height Body mass index (BMI) Body weight Body temperature Heart rate Oxygen saturation Oxygen saturation in Arterial blood by Pulse oximetry Pain severity - 0-10 verbal numeric rating [Score] - Reported Systolic And Diastolic Provider Name and Address Organization Details Last Updated DateTime 5 182.88 cm 32.4 kg/m2 996429. 58 g 97.8 [degF] 66 /min 96 % 96 % 6 124/80 mm[Hg] Rosalie Raya MA [employer] 09:23:38 Date Recorded Body height Body mass index (BMI) Body weight Provider Name and Address Organization Details Last Updated DateTime 02/05/2025 182.88 cm 31.2 kg/m2 998495.25 g Edwige Doshi CNA [facility] [email or web address] 02/05/2025 09:33:19 Social History Question Answer Notes LastModified by Organization Details LastModified Time Tobacco Smoking Status Never Smoker V[place]IA Tubbs, [place] [employer] [facility] 11/16/2023 09:18:11 Do You Have An Advance Directive? No [email or web address] Information not available 05/22/2024 Is Blood Transfusion Acceptable In An Emergency? Yes [email or web address] Information not available 05/22/2024 What Is Your [...] Or Recreational Drugs Have You Used? THC [email or web address] Information not available 05/22/2024 What Is The Highest Grade Or Level Of School You Have Completed Or The Highest Degree You Have Received? [id number] Information not available 02/21/2024 How Many Days Of Moderate To Strenuous Exercise, Like A Brisk Walk, Did You Do In The Last 7 Days? 0 [email or web address] Information not available 05/22/2024 Have There Been Any Changes To Your Family Or Social Situation? No Information not available 02/21/2024 What Is The Fluoride Status Of Your Home? Unknown Information not available 02/21/2024 Are There Any Guns Present In Your Home? No Information not available 02/21/2024 How Many Years Have You Used Illicit Or Recreational Drugs? 5 [email or web address] Information not available 05/22/2024 Do You Use Insect Repellent Routinely? No Information not available 02/21/2024 Where Do You Live? SingleLevelHouse Information not available 02/21/2024 Presence Of Domestic Violence No Information not available 05/22/2024 Guns Present In The Home? Yes [email or web address] Information not available 05/22/2024 Are You Able To Care For Yourself? Yes [email or web address] Information not available 05/22/2024 Are You Blind Or Do Yo Have Difficulty Seeing? No [email or web address] Information not available 05/22/2024 Are You Deaf Or Do You Have Serious Difficulty Hearing? No [email or web address] Information not available 05/22/2024 General Stress Level? High [email or web address] Information not available 05/22/2024 Live Alone Of With Others? With Others Information not available 05/22/2024 Are You Following A Low Salt Diet? No [email or web address] Information not available 05/22/2024 Do You Have A Medical Power Of Marine Insurance Claim Examiner? No [email or web address] Information not available 05/22/2024 What Was The Date Of Your Most Recent Tobacco Screening? 02/05/2025 [email or web address] Information not available 02/05/2025 How Many Children Do You Have? 3 [email or web address] Information not available 05/22/2024 Have You Ever Been Counseled For Unhealthy Alcohol Use? No [email or web address] Information not available 05/22/2024 Do You Have Any Pets? Yes Cat [email or web address] Information not available 05/22/2024 What Is Your Relationship Status? Information not available 02/21/2024 Do You Use Your Seat Belt Or Car Seat Routinely? Yes Information not available 02/21/2024 Are You Sexually Active? No Information not available 05/22/2024 Do You Have Smoke And Carbon Monoxide Detectors In Your Home? Yes Information not available 02/21/2024 Are You Passively Exposed To Smoke? No Information not available 02/21/2024 Are There Any Smokers In Your House? No Information not available 02/21/2024 What Types Of Sporting Activities Do You Participate In? None [email or web address] Information not available 05/22/2024 Do You Use Sunscreen Routinely? Yes Information not available 02/21/2024 Has Tobacco Cessation Counseling Been Provided? No N/a [email or web address] Information not available 05/22/2024 Have You Recently Traveled Abroad? No Information not available 02/21/2024 Have You Used IV Drugs? No [email or web address] Information not available 05/22/2024 Do You Have [...] 02/21/2024 Are you currently employed? No Disabled [email or web address] Information not available 05/22/2024 What is your exercise level? None [email or web address] Information not available 05/22/2024 Mental Status Question Answer Note LastModified by Organization D etails LastModified Time Do you feel stressed (tense, restless, nervous, or anxious, or unable to sleep at night)? [id number] Information not available 02/21/2024 Family History Relationship Description Onset Age of this Age Resolved Age Notes LastModified by Organization Details LastModified Time Maternal Grandfather Diabetes mellitus [email or web address] Not available 2023 09:15:18 Maternal Grandfather Cerebrovascu lar accident [email or web address] Not available 09:15:36 Maternal Grandfather Arthritis [email or web address] Not available 09:16:06 Maternal Grandfather Hypertensive disorder [email or web address] Not available 2023 09:16:23 Maternal Grandfather Heart disease [email or web address] Not available 2023 09:16:44 Maternal Grandfather Blood coagulation disorder [email or web address] Not available 2023 09:17:49 Paternal Grandmother Diabetes mellitus [email or web address] Not available 2023 09:15:18 Paternal Grandmother Hypertensive disorder [email or web address] Not available 2023 14:11:31 Maternal Grandmother Cerebrovascu lar accident [email or web address] Not available 09:15:36 Maternal Grandmother Arthritis [email or web address] Not available 09:16:06 Maternal Grandmother Hypertensive disorder [email or web address] Not available 2023 09:16:23 Maternal Grandmother Heart disease [email or web address] Not available 2023 09:16:44 Maternal Grandmother Blood coagulation disorder [email or web address] Not available 2023 09:17:49 Paternal Grandfather Heart [...] preservative 8 completed Homa Le RMJair guerra, [facility] 05/22/2024 10:22:50 COVID-19, mRNA, LNP-S, PF, 30 mcg/0.3 mL dose 1 completed Homa Le RMJair null, [facility] 05/22/2024 10:22:50 COVID-19, mRNA, LNP-S, PF, 30 mcg/0.3 mL dose 1 completed Homa Le RMA mari, [facility] 05/22/2024 10:22:50 Pneumococcal conjugate PCV20, polysaccharide [id number] conjugate, adjuvant, PF 3 completed Homa Le RMA null, [facility] 05/22/2024 10:22:50 COVID-19, mRNA, LNP-S, bivalent, PF, 30 mcg/0.3 mL dose 3 completed VIR[place]IA Floyd, [facility] 05/22/2024 10:22:50 pneumococcal polysaccharide PPV23 6 completed VIR[place]IA Floyd, [facility] 05/22/2024 10:22:50 Tdap 9 completed Homa Rey, RMA null, [facility] 05/22/2024 10:22:50 Tdap 6 completed Homa Rey, RMA null, [facility] 05/22/2024 10:22:50 Tdap 9 completed Homa Rey, RMA null, [facility] 05/22/2024 10:22:50 Influenza, split virus, trivalent, preservative 3 completed Homa Rey, RMA null, [facility] 05/22/2024 10:22:50 Influenza, split virus, trivalent, preservative 4 completed Homa Rey, RMA null, [facility] 05/22/2024 10:22:51 Influenza, split virus, trivalent, PF 5 completed Homa Rey, RMA null, [facility] 05/22/2024 10:22:51 Td (adult), 2 Lf tetanus toxoid, preservative free, adsorbed 5 completed Homa Rey, RMA null, [facility] 05/22/2024 10:22:51 Influenza, split virus, quadrivalent, PF 7 completed Homa Rochester, RMA null, [facility] 05/22/2024 10:22:51 Influenza, split virus, quadrivalent, PF 3 completed Homa Rey, RMA null, [facility] 05/22/2024 10:22:51 Influenza, split virus, quadrivalent, PF 2 completed Homa Rochester, RMA null, [facility] 05/22/2024 10:22:51 Influenza, split virus, quadrivalent, PF 8 completed Homa Rochester, RMA null, [facility] 05/22/2024 10:22:51 Influenza, split virus, trivalent, PF 4 completed Job Alarcon MD [address] [facility] [address] [place], [address], [place] - [facility] [employer] [facility] 05/24/2024 20:56:20 Past Encounters Encounter ID Performer Location Encounter Start Date Encounter Closed Date Diagnosis/Indication Diagnosis SNOMED-CT Code Diagnosis ICD10 Code Diagnosis IMO Codes Diagnosis Note [id number] Elvin Murillo DPM [facility] [place] [address] [address] 11/16/2023 08:59:27 11/16/2023 10:39:51 Paronychia of toe of left foot 5440196982 1605943 L03.032 Onychomyco sis of toenails 194796453 B35.1 [id number] Elvin Murillo DPM [facility] [place] [address] [address] 11/24/2023 10:24:15 11/24/2023 11:11:28 Porokeratosis 164483152 Q82.8 excised porokerato sis sharply and applied phenol to prevent reccurrenc e, Lt foot [id number] Elvin Murillo DPM [facility] [place] [address] [address] [address] 01/15/2024 14:20:48 01/16/2024 15:17:41 [id number] Elvin Murillo DPM [facility] [place] [address] [address] 01/23/2024 10:45:23 01/26/2024 11:53:02 Onychomycosis 121706207 B35.1 [id number] MD GEORGE Moeller[facility] [place] [address] [place] [address] 02/08/2024 13:48:00 02/08/2024 15:16:08 Pain of right wrist 6262167645 01785 M25.531 Carpal cristal campbell syndrome of right wrist 6656015114 82674 G56.01 [id number] Job garcia MD [facility] [place]riel [address] [facility] [place] [address] 02/21/2024 14:22:53 02/21/2024 16:04:14 Screening - NAD 310351818 Z13.9 C-scope: Get this if not done Get yearly flu shot, get tdap if not doneCan do COVID 19 vaccine and its boosters RTC in 3 months, do labs, ER if worse, he and his mother did verbalize his understand ing of the above Screening for malignant neoplasm of colon 740924799 Z12.11 Migraine 78639331 G43.90 9 On propranolo l ER 120mg dailyOn sumatripta n 50mg dailyGet a referral to neurology Hyperlipidemia 33226516 E78.5 Not on any medGet labs Essential hypertension 96353478 I10 Get on amlodipine 10mg dailyGet a cardiology Moderate r ecurrent major depression 81889877 F33.1 On buspirone 10mg dailyOn duloxetine 60mg dailyNot suicidal or homicidalN eeds to see psychiatry Gout 13385044 M10.9 On allopurino l 100mg daily Low back pain 389381008 M54.50 S/p MCA, s/p surgeryOn meloxicam 7.5mg daily, advised to take ONLY as neededOn gabapentin On tramadol 50mg bidGet a referral to [facility] Hypogonadism 03850266 E2 9.1 Dr Marjorie Clark endocrine MDOn testostero ne weekly Insomnia 867965640 G47.0 0 On zolpidem 10mg daily,advi sed to take ONLY as needed Gastroesop hageal reflux disease without esophagitis 729517338 K21.9 On famotidine Get EGD done Oral cyst 2443220998 313371 K09.9 Get an apt with oral surgery, no obvious cyst was appreciate d, but the patient does 'feel' it at the roof of his mouth Serum mavis min B12 below reference range 143288127 R79.89 Vitamin D deficiency 347 84260 E55.9 [id number] Mina Bright MD [facility] [place] 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 [place] [address] 04/12/2024 08:55:46 04/12/2024 09:08:48 Pain of right wrist 4225636185 27670 M25.161 [id number] Mina Bright MD [facility] [place] 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 [place] [address] 05/08/2024 09:46:11 05/08/2024 10:14:27 Carpal tunnel syndrome of right wrist 7409052469 93037 G56.01 Pain of right wrist 3169 638010 48283 M25.531 Pain of left hand 524887 9798 99966 M79.009 [id number] Mina Bright MD [facility] [place] [address] [place] [address] 05/22/2024 09:38:05 05/22/2024 10:17:03 Pain of right shoulder joint 0752704411 9520950 M25.771 [id number] Job garcia MD [facility] [place] gabriel [address] [facility] [address] [facility] [place] [address] 05/22/2024 14:00:37 05/22/2024 14:57:47 Adult health examination 055500698 Z00.00 Screening for disorder 377115874 Z13.9 Screening - NAD 09647814 3 Z13.9 C-scope: Get this if not done Get yearly flu shot, get tdap if not doneCan do COVID 19 vaccine and its boosters RTC in 3 months, do labs, ER if worse, he did verbalize his understand ing of the above Screening for malignant neoplasm of colon 639388432 Z12.11 Migraine 25859164 G43.90 9 On propranolo l ER 120mg dailyOn sumatripta n 50mg dailyGet a referral to neurology Hyperlipidemia 21618151 E78.5 On rosuvastat in 40mg dailyGet labs Essential hypertension 07753393 I10 On amlodipine 10mg dailyDr Bulmaro 04/10/2024 Moderate r ecurrent major depression 15111126 F33.1 On buspirone 10mg dailyOn duloxetine 60mg dailyNot suicidal or homicidalN eeds to see psychiatry Gout 36740877 M10.9 On allopurino l 100mg daily Low back pain 661427757 M54.50 S/p MCA, s/p surgeryOn meloxicam 7.5mg daily, advised to take ONLY as neededOn gabapentin On tramadol 50mg bidGet a referral to [facility] Hypogonadism 84524449 E2 9.1 Dr Marjorie [place] endocrine MDOn testostero ne weekly Insomnia 255750257 G47.0 0 On zolpidem 10mg daily,advi sed to take ONLY as needed Gastroesop hageal reflux disease without esophagitis 424045714 K21.9 On famotidine Get EGD done Oral cyst 9021957271 318017 K09.9 Get an apt with oral surgery, no obvious cyst was appreciate d, but the patient does 'feel' it at the roof of his mouth Serum mavis min B12 below reference range 277435289 R79.89 Vitamin D deficiency 347 38829 E55.9 Leukocytosis 172106214 D 72.829 Will repeat the CBC again Administra tion of influenza vaccine 47593392 Z23 [id number] Job garcia MD [facility] [place] gabriel [address] [facility] [address] [facility] [place] [address] 08/21/2024 08:52:01 08/21/2024 09:54:02 Screening - NAD 660601255 Z13.9 C-scope: Sees GI,now to get repeat EGD and C-scope with Dr Arias Get yearly flu shot, get tdap if not doneCan do COVID 19 vaccine and its boosters RTC in 3 months, do labs, ER if worse, he did verbalize his understand ing of the above Migraine 77515078 G43.90 9 On propranolo l ER 120mg dailyOn sumatripta n 50mg dailyDr Sid Smith Hyperlipidemia 98052881 E78.5 On rosuvastat in 40mg dailyGet labs Essential hypertension 94150547 I10 On amlodipine 10mg dailyDr Bulmaro 04/10/2024 Moderate r ecurrent major depression 85254549 F33.1 Not on buspirone 10mg daily On buspirone 30mg bid given by Susan Wood 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 [facility]On duloxetine 60mg daily, given by Kerri Lipscomb MDNot suicidal or homicidal Gout 57398897 M10.9 On allopurino l 100mg daily Low back pain 710901443 M54.50 S/p MCA, s/p surgeryOn meloxicam 7.5mg daily, advised to take ONLY as neededOn gabapentin , given by Dr Sid SmithOn tramadol 50mg bidGet a referral to [facility] Hypogonadism 86743940 E2 9.[address] Dr Marjorie [place] endocrine MDOn testostero ne weekly Insomnia 127094395 G47.0 0 On zolpidem 10mg daily,advi sed to take ONLY as needed Gastroesop hageal reflux disease without esophagitis 731909023 K21.9 On famotidine On protonix 40mg bidOn carafateHa s seen 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 Rolanda Normanlynn GI 08/06/2024 S/p EGD 07/2024 as per GI note Oral cyst 3422672633 391841 K09.9 Get an apt with oral surgery, no obvious cyst was appreciate d, but the patient does 'feel' it at the roof of his mouth Serum mavis min B12 below reference range 622287353 R79.89 Vitamin D deficiency 347 92588 E55.9 Increased liver function 20794270 R94.5 Sees GI PoropatIs to get a fibroscan on 08/26/2024 at [facility] Chronic diarrhea 3290759 09 K52.9 On colestipol 1gm bid started by GI on 08/06/2024 Is to get repeat of EGD and C-scope as per GI note Pain of ri ght shoulder joint 8516199766 3907989 M25.[address] Bright Pain in left thumb 97098 69593 725062 M79.645 S/p injuryCann ot bend the thumb, he is RHD [id number] Job garcia MD [facility] [address] [facility] [address] [place] [address] 10/23/2024 15:17:00 10/23/2024 16:41:14 Pain of hip region 46236983 M25.552 761391 Get on meloxicam as needed, all side effects explained to himAlso get a referral to ortho Pain of le ft knee joint 2844467449 36873 M25.562 310293 Get on meloxicam as needed, all side effects explained to himAlso get a referral to orthoER if worseHe is very appreciati ve to this plan of care [id number] Mina Bright MD [facility] [place] [address] [place] [address] 10/30/2024 09:59:29 10/30/2024 10:48:43 Pain of hip region 14044497 M25.552 [id number] Osteoarthritis of hip 23 5001254 M16.0 M16.10 M16.11 M16.12 [id number] Job garcia MD [facility] [place] Zulma gabriel [address] [facility] [address] [place] [address] 12/04/2024 10:12:03 12/04/2024 11:26:17 Pain of hip region 66683282 M25.552 207592 Get on meloxicam as needed, all side effects explained to himAlso get a referral to ortho Pain of le ft knee joint 4440804848 53206 M25.562 550311 Get on meloxicam as needed, all side effects explained to himAlso get a referral to orthoER if worseHe is very appreciati ve to this plan of care Screening - NAD 10603516 3 Z13.9 C-scope: Sees GI,now to get repeat EGD and C-scope with Dr Arias Get yearly flu shot, get tdap if not doneCan do COVID 19 vaccine and its boosters RTC in 3 months, do labs, ER if worse, he and his mother did verbalize his understand ing of the above Migraine 08786196 G43.90 9 On propranolo l ER 120mg daily Hernandez Garcia dOn sumatripta n 50mg daily Dr Guerra should keep his apt with the neurologis t! 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 [facility] duloxetine 60mg daily, given by Kerri Lipscomb MDNot suicidal or homicidal Gout 87279058 M10.9 On allopurino l 100mg daily Low back pain 065754302 M54.50 S/p MCA, s/p surgeryOn meloxicam 7.5mg daily, advised to take ONLY as neededOn gabapentin , given by Dr Sid Ogden tramadol 50mg bidGet a referral to [facility] Hypogonadism 69675144 E2 9.1 Dr Marjorie [place] endocrine MDOn testostero ne weekly Insomnia 478520784 G47.0 0 On zolpidem 10mg daily,advi sed to take ONLY as needed Gastroesop hageal reflux disease without esophagitis 181627348 K21.9 On famotidine On protonix 40mg bidOn carafateHa s seen 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 Rolanda Arias GI 08/06/2024 S/p EGD 07/2024 as per GI note Oral cyst 7824724293 996639 K09.9 Get an apt with oral surgery, no obvious cyst was appreciate d, but the patient does 'feel' it at the roof of his mouth Serum mavis min B12 below reference range 441323203 R79.89 Vitamin D deficiency 347 28772 E55.9 Increased liver function 28259996 R94.5 Sees GI Jodi to get a fibroscan on 08/26/2024 at [facility] Chronic diarrhea 7020358 09 K52.9 On colestipol 1gm bid started by GI on 08/06/2024 Is to get repeat of EGD and C-scope as per GI note Pain of ri ght shoulder joint 4480283971 5864154 M25.[address] Bright Pain in left thumb 07588 29684 406421 M79.645 S/p injuryCann ot bend the thumb, he is RHDS/p surgery 09/13/2024 for L RF trigger finger and L CTR Folliculitis 86030338 L7 3.9 43 Get on keflex and notify if not better [id number] Job garcia MD [facility] [address] [place] [address] 12/25/2024 09:15:46 12/25/2024 09:55:51 Pain of hip region 47760932 M25.552 587007 Get on meloxicam as needed, all side effects explained to himAlso get a referral to ortho OV 12/25/2024 :Dr Bright 12/25/2024 Pain of le ft knee joint 0481554629 52439 M25.562 172997 Get on meloxicam as needed, all side effects explained to himAlso get a referral to orthoER if worseHe is very appreciati ve to this plan of care Screening - NAD 89040641 3 Z13.9 C-scope: Sees GI,now to get repeat EGD and C-scope with Dr Arias Get yearly flu shot, get tdap if not doneCan do COVID 19 vaccine and its boosters RTC in 3 months, do labs, ER if worse, he did verbalize his understand ing of the above Migraine 03440619 G43.90 9 On propranolo l ER 120mg daily Hernandez Radha dOn sumatripta n 50mg daily Dr Guerra should keep his apt with the neurologis t! 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 [facility] duloxetine 60mg daily, given by Kerri Moore suicidal or homicidalR eferral given to Eneida Slater 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 at [facility] 12/25/2024 Gout 31638972 M10.9 On allopurino l 100mg daily Low back pain 975675762 M54.50 S/p MCA, s/p surgeryOn meloxicam 7.5mg daily, advised to take ONLY as neededOn gabapentin , given by Dr Sid Smith 12/15/2024 Not on tramadol 50mg bidGet a referral to [facility] this was again provided 12/25/20[address] 9[address] Marjorie Clark endocrine MDOn testostero ne weekly Dr Clark 11/20/2024 Insomnia 630593035 G47.0 0 Not on zolpidem 10mg daily,advi sed to take ONLY as neededOn trazodone 100mg 0.5-1.5 tab as needed #135 tablets Susan Wood 11/30/2024 Gastroesop hageal reflux disease without esophagitis 827591040 K21.9 On famotidine On protonix 40mg bidOn carafateHa s seen 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 Rolanda Arias GI 08/06/2024 , 11/22/2024 S/p EGD/C-scop e 07/2024 as per GI note Oral cyst 1401286532 666131 K09.9 Get an apt with oral surgery, no obvious cyst was appreciate d, but the patient does 'feel' it at the roof of his mouth Serum mavis min B12 below reference range 862127111 R79.89 Vitamin D deficiency 347 06829 E55.9 Increased liver function 29750242 R94.5 Sees GI Poropat last OV 11/22/2024 US Liver 08/04/2024 : Steatosis Chronic diarrhea 3978545 09 K52.9 On colestipol 1gm bid started by GI on 08/06/2024 Is to get repeat of EGD and C-scope as per GI note To get aciphex, see telephone in clinical documents 12/17/2024 Pain of ri ght shoulder joint 6367855987 6290880 M25.511 OV 12/25/2024 :Dr Simpson 12/04/2024 , now planning surgery, but does not want to do this yet, he wants to wait till March as he is on a fixed income and wants to work till then Pain in left thumb 48130 41629 440169 M79.645 S/p injuryCann ot bend the thumb, he is RHDS/p surgery 09/13/2024 for L RF trigger finger and L CTR [id number] Mina Bright MD [facility] [place] [address] [place] [address] 12/25/2024 10:48:54 12/25/2024 11:40:53 Osteoarthritis of hip 742970643 M16.0 M16.10 M16.11 M16.12 Pain of le ft knee joint 1183367754 05052 M25.562 202698 [id number] Mina Bright MD [facility] [place] [address] [place] [address] 02/05/2025 09:14:08 02/05/2025 10:07:20 Pain of left knee joint 9227748639 83491 M25.562 215281 Pain of hip region 82507 002 M25.552 189722 Osteoarthritis of hip 23 5535741 M16.12 Health Concerns Section Related Observation LastModified by Organization Detai ls LastModified Time None Recorded Concern Status LastModified by Organization Details LastModified Time None Recorded Advance Directives Directive N: Payers Insurance Date Sequence Insurance Name Policy Number Policy Cook Covered Member ID Cook Member ID Guarantor Name 02/05/2025 1 [employer] (MEDICARE REPLACEMENT/ADVA NTAGE - HMO) Mitch Delatorre [id number] Mitch Delatorre 03/05/2025 1 [employer] - DUAL ELIGIBLE - GOLD PLUS INTEGRATED (MEDICARE - HMO) Mitch Delatorre [id number] Mitch Delatorre 02/05/2025 2 [place] COMPREHENSIVE MAJOR MEDICAL (INDEMNITY) Mitch Delatorre [id number] Mitch Delatorre Notes Date Note Type Note [...] LCTR done by Dr Penny Alarcon MD [address] [facility], [place] [address], [place], [address], [facility] [employer] 12/04/2024 11:27:54 12/25/2024 text/html OV 02/21/2024: Here [...] Susan Wood and Dr Ruel Alarcon MD [address] [facility], [place], [address], [facility] 12/25/2024 10:10:25"
--- OUTSIDE RECORDS SUMMARY | 2025-04-10 16:09 | XMS_ITS | Encounter Summary ---
Author Organization [facility] Address [address] [place] [address] Phone Care Team Providers Care Head Of Insight Name Role Phone Alcantara, Valdemar Rao APRN Unavailable Doug Sanford Unavailable Rose Mckeon MD Unavailable [phone] Dilia Hansen MD Unavailable [phone] Marjorie Clark MD Unavailable Kavon Renee DPM Unavailable Unavailable Fer Chauhan MD Unavailable Blaise Peterson MD Unavailable [phone] Clayton Iyer PAC Unavailable Juliana Smith Unavailable [phone] Areli Alarcon MD Primary Care Provider Encounter Details Date Type Department Care Team (Late st Contact Info) Description 03/24/2025 Results Follow-Up [facility] - Neurology - [address] [place] [phone] Graciela Todd, CHUCKING MACHINE OPERATOR, [address] [place] [address] VITAMIN B12 Social History Tobacco Use Types Packs/Day Years Used Date Smoking Tobacco: Never Smokeless Tobacco: Never Alcohol Use Standard Drinks/Week Comments Yes 3 (1 standard drink = 0.6 oz pur e alcohol) [facility] Utilities Answer Date Recorded In [...] declined 09/06/2023 How often do you attend latter day or samaritan serv ices? Patient declined 09/06/2023 Do you belong to any clubs o r organizations such as latter day groups, unions, fraternal or athletic groups, or [...] Score - Questions 1-9 0 /0 09/2023 [facility] [place] of Occupat ional Health - Occupational Stress [...] (Latest Contact Info) Description 04/15/2025 10:15 AM RESERVOIR ENGINEERING ADVISOR Physical Therapy [facility] [address] [place] [address] Romeo Simpson MD [address] [facility] [address] [place] [address] Meliton Duffy, [facility] Discharge Disposition: Discharged to home or Selfcare 05/22/2025 8:45 AM RESERVOIR ENGINEERING ADVISOR Office Visit [facility] - Endocrinology - [address] [address] [place] [address] Marjorie Clark MD [address] [address] 06/10/2025 8:30 AM RESERVOIR ENGINEERING ADVISOR Office Visit [facility] - Neurology - [place] [address] [place] [address] Graciela Todd APRN, [address] [place] [address] documented as of this encounter Visit Diagnoses Not on filedocumented in this encounter Additional Health Concerns Assessment Noted Time PHQ-9 Depression Total Score: 0 06/08/19 24 9:26 AM RESERVOIR ENGINEERING ADVISOR documented as of this encounter Care Teams Head Of Insight Relationship Specialty Start Date End Date Areli Alarcon MD [address] [place] [address] PCP - General Internal Medicine 12/12/24 Valdemar Alcantara APRN [address] [place] [address] Nurse Practitioner Psychiatry 08/27/21 Doug Sanford [address] [facility] [address] [place] [address] Consulting Physician Endocrinology 08/27/21 Rose Mckeon MD [address] [place] [address] Consulting Physician Gastroenterology 08/27/21 Dilia Hansen MD [address] [place] [address] Consulting Physician Endocrinology 12/03/21 Marjorie Clark MD [address] [facility] [address] [place] [address] Consulting Physician Endocrinology 02/21/22 Kavon Renee DPAlexa Podiatry 12/15/21 Fer Chauhan MD [address] [place] [address] Consulting Physician Neurology 12/05/22 Blaise Peterson MD [address] [address] Consulting Physician Urology 01/03/23 Clayton Iyer PAC [address] [address] Physician Hunter Trapper Physician Hunter Trapper 01/24/24 Juliana Smith [address] [place], [place] [id number] Nurse Practitioner Neurology 02/14/24 documented as of this encounter
--- OUTSIDE RECORDS SUMMARY | 2025-04-10 16:09 | XMS_ITS | Encounter Summary ---
Author Organization [facility] Address [address] [place] [address] Phone Care Team Providers Care Burring Machine Operator Name Role Phone Valdemar Alcantara DONNIE Unavailable [phone] Doug Sanford Unavailable Rose Mckeon MD Unavailable Dilia Hansen MD Unavailable [phone] Marjorie Clark MD Unavailable Kavon Renee DPM Unavailable Unavailable Fer Chauhan MD Unavailable Blaise Peterson MD Unavailable [phone] Clayton Iyer PAC Unavailable [phone] Juliana Smith Unavailable [phone] Areli Alarcon MD Primary Care Provider Encounter Details Date Type Department Care Team (Late st Contact Info) Description 12/26/2024 Transcribe Orders [facility] Central Scheduling [address] [place] [address] Provider, Not On File [place] Social History Tobacco Use Types Packs/Day Years Used Date Smoking Tobacco: Never Smokeless Tobacco: Never Alcohol Use Standard Drinks/Week Comments Yes 3 (1 standard drink = 0.6 oz pur e alcohol) [facility] Utilities Answer Date Recorded In the [...] declined 09/06/2023 How often do you attend muslim or gnosticist serv ices? Patient declined 09/06/2023 Do you belong to any clubs o r organizations such as muslim groups, unions, fraternal or athletic groups, or [...] Score - Questions 1-9 0 /0 09/2023 [facility] - Occupational [...] (Latest Contact Info) Description 04/15/2025 10:15 AM OIL SEPARATOR [facility] [address] [id number] Romeo Simpson MD [address] [facility] [address] [place] [address] Meliton Duffy, PT [place] Discharge Disposition: Discharged to home or Selfcare 05/22/2025 8:45 AM OIL SEPARATOR Office Visit [facility] Endocrinology - [place] [address] [place] [address] Marjorie Clakr MD #2 [facility] [address] [place] [phone] 06/10/2025 8:30 AM OIL SEPARATOR Office Visit [facility] - [facility]rology [facility] [address] [place] [phone] Graciela Todd APRN, BISQUE TILE BURNER [address] [place] [address] documented as of this encounter Visit Diagnoses Not on filedocumented in this encounter Additional Health Concerns Assessment Noted Time PHQ-9 Depression Total Score: 0 06/08/19 24 9:26 AM OIL SEPARATOR documented as of this encounter Care Teams Burring Machine Operator Relationship Specialty Start Date End Date Areli Alarcon MD [address] [place] [address] PCP - General Internal Medicine 12/12/24 Valdemar Alcantara, LEGAL OFFICE ADMINISTRATOR [address] [place] [address] Nurse Practitioner Psychiatry 08/27/21 Doug Sanford [address] [address] Consulting Physician Endocrinology 08/27/21 Rose Mckeon MD [address] [place] [address] Consulting Physician Gastroenterology 08/27/21 Dilia Hansen MD [address] [place] [address] Consulting Physician Endocrinology 12/03/21 Marjorie Clark MD #[address] [phone] Consulting Physician Endocrinology 02/21/22 Kavon Renee DPM Podiatry 12/15/21 Fer Chauhan MD [address] [place] [address] Consulting Physician Neurology 12/05/22 Blaise Peterson MD #2 [facility], [address] [address] Consulting Physician Urology 01/03/23 Clayton Iyer PAC [address]2 [facility], [facility] [address] [place] [address] Physician Operation Manager Physician Operation Manager 01/24/24 Juliana Smith [address] [place] [address] Nurse Practitioner Neurology 02/14/24 documented as of this encounter
--- OUTSIDE RECORDS SUMMARY | 2025-04-10 16:09 | XMS_ITS | Encounter Summary ---
Author Organization [facility] Address [address] [place] [address] Phone Care Team Providers Care Warehouse Director Name Role Phone Romeo Joe MD Unavailable [phone] Jose Dang MD Primary Care Provider [phone] Valdemar Alcantara APRN Unavailable [phone] Hernandez Altman MD Primary Care Provider [phone] Doug Sanford Unavailable Doug Sanford Unavailable Rose Mckeon MD Unavailable [phone] Dilia Hansen MD Unavailable [phone] Marjorie Clark MD Unavailable Kavon Renee DPAlexa Unavailable Unavailable Fer Chauhan MD Unavailable [phone] Blaise Peterson MD Unavailable [phone] Clayton Iyer PAC Unavailable [phone] Juliana Smith Unavailable [phone] Areli Alarcon MD Primary Care Provider Reason for Visit * Reason Comments Medication Refill Encounter Details Date Type Department Care Team (Late st Contact Info) Description 07/25/2021 Refill [facility] - [place] [address] [place] [address] Rose Mckeon MD [address] [place] [address] Medication Refill Social History Tobacco Use Types [...] Gela Pedro RN - 07/26/2021 10:22 AM REGISTERED DIETICIAN Pharmacy requesting refill of: Requested Prescriptions Pending [...] for review. Colestipol order pended, please review. STERED DIETICIAN documented in this encounter Plan of Treatment Upcoming Encounters Date Type Department Care Team (Latest Contact Info) Description 04/15/2025 10:15 AM REGISTERED DIETICIAN Physical Therapy [facility] at [facility] [address], [address] [place] [address] Romeo Simpson MD [address] [facility] [address] [place] [address] Meliton Duffy, PT [place] Discharge Disposition: Discharged to home or Selfcare 05/22/2025 8:45 AM REGISTERED DIETICIAN Office [facility] - [place] [address] [facility] [place] [address] Marjorie Clark MD [facility] [address] [place] [address] 06/10/2025 8:30 AM REGISTERED DIETICIAN [facility] [place] [address]2 [facility] [place] [address] Graciela Todd, BACK WINDER, CAN MARKER [address] [place] [address] documented as of this encounter Visit Diagnoses Diagnosis Chronic diarrhea Diarrhea documented in this encounter Additional Health Concerns Infection Onset Date Last Indicated Resolved Time C. difficile Rule-Out 03/22/2022 03/22/20222021 1:25 PM CDT C. difficile Rule-Out 08/11/2023 08/11/20232023 12:32 PM REGISTERED DIETICIAN Assessment Noted Time PHQ-9 Depression Total Score: 0 10/04/19 2:42 PM CDT documented as of this encounter Care Teams Warehouse Director Relationship Specialty Start Date End Date Jose Dang MD [address] [facility] [address] [place] [address] PCP - General Family Medicine 06/11/20 08/26/21 Hernandez Altman MD [address] [place] [address] PCP - General Internal Medicine 08/27/21 12/11/24 Areli Alarcon MD [address] [place] [address] PCP - General Internal Medicine 12/12/24 Romeo Joe MD General Surgery 06/25/15 08/26/21 Valdemar Alcantara APRN [address] [place] [address] Nurse Practitioner Psychiatry 08/27/21 Doug Sanford [address] [place] [address] Endocrinology 08/27/21 08/27/21 Doug Sanford [address] [facility] [address] [place] [address] Consulting Physician Endocrinology 08/27/21 Rose Mckeon MD #[address] [place] [address] Consulting Physician Gastroenterology 08/27/21 Dliia Hansen MD #2 [place] [address] Consulting Physician Endocrinology 12/03/21 Marjorie Clark MD #[address] [phone] Consulting Physician Endocrinology 02/21/22 Kavon Renee DPM Podiatry 12/15/21 Fer Chauhan MD [address] [place] [address] Consulting Physician Neurology 12/05/22 Blaise [place] MD #2 KENZIE ECKERT, [facility] [address] [place] [address] Consulting Physician Urology 01/03/23 Clayton Iyer PAC #2 [facility] [address] [place] [address] Physician Hand Ii Tube Bender Physician Hand Ii Tube Bender 01/24/24 Juliana Smith [address] [address] Nurse Practitioner Neurology 02/14/24 documented as of this encounter
== END 2025-04-10 11:46 | disposition home or self-care (01) ==
PROVIDERS: PCP Internal Medicine; Visit Provider Orthopaedic Surgery
PROC: (CPT 29805; principal; 2025-04-10 07:30)
DX: M75.121 Complete rotator cuff tear or rupture of right shoulder, not specified as traumatic (principal); G89.18 Other acute postprocedural pain; F12.90 Cannabis use, unspecified, uncomplicated; E66.9 Obesity, unspecified; Z68.31 Body mass index [BMI] 31.0-31.9, adult
CPT/HCPCS: 23412; 29822; 64415; J0690; A9270; J1100; J2003; J2250; J2270; J2704; J3010; J3373; J7120